=== PATIENT | female | born 1935 | race Caucasian/White ===

== ENCOUNTER 2016-08-23 | Outpatient (CLI) | payer MEDICARE | END 2016-08-23 22:54 | disposition short-term general hospital (02) | CPT/HCPCS: A0170; A0425; A0427 ==

== ENCOUNTER 2016-09-11 | Outpatient (CLI) | payer MEDICARE | END 2016-09-11 15:26 | disposition EMS.NT | DX: R45.82 Worries (principal) ==

== ENCOUNTER 2016-11-26 15:52 | Outpatient (CLI) | payer MEDICARE | END 2016-11-26 15:53 | disposition EMS.NT | DX: F03.90 Unspecified dementia, unspecified severity, without behavioral disturbance, psychotic disturbance, mood disturbance, and anxiety (principal) ==

== ENCOUNTER 2017-01-17 18:47 | Outpatient (CLI) | payer MEDICARE | END 2017-01-17 18:48 | disposition EMS.NT | DX: Z03.89 Encounter for observation for other suspected diseases and conditions ruled out (principal) ==

== ENCOUNTER 2017-01-23 19:28 | Outpatient (CLI) | payer MEDICARE | END 2017-01-23 19:29 | disposition EMS.NT | LOC: EMS 19:28 | PROVIDERS: ATTEND Surgery | DX: R41.0 Disorientation, unspecified (principal) ==

== ENCOUNTER 2017-02-07 14:56 | Outpatient (CLI) | payer MEDICARE | END 2017-02-07 14:57 | disposition home or self-care (01) | LOC: EMS 14:56 | PROVIDERS: ATTEND Surgery | DX: R19.7 Diarrhea, unspecified (principal) | CPT/HCPCS: A0425; A0427 ==

== ENCOUNTER 2017-02-07 15:22 | Inpatient (IN) | payer MEDICARE ==
[2017-02-07] MEDS ORDERED: SODIUM CHLORIDE 0.9% 1,000 ML IV ONE ×2 (16:28)
--- NOTE | 2017-02-07 16:35 | ED Physician Documentation ---
History of Present Illness - Stated complaint Stated Complaint: DIARRHEA - Chief complaint Chief Complaint: Abd Pain - History obtained from History obtained from: Patient, EMS - History of Present Illness Timing: Last night Pain level max: 0 Pain level now: 0 Improved by: nothing Worsened by: nothing - Additonal information Additional information: Patient is an 81-year-old female who states that she had diarrhea last night. Has not had any diarrhea today. Concerned that she may have recurrent C. difficile. 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 No fevers. No abdominal pain. No nausea, no vomiting. Review of Systems Ten Systems: 10 systems reviewed and negative Constitutional: denies: Fever, Chills Ears: denies: Ear pain Nose: denies: Rhinorrhea / runny nose, Congestion Throat: denies: Sore throat Cardiac: denies: Chest pain / pressure Respiratory: denies: Dyspnea, Cough, Wheezing GI: reports: Diarrhea (once). 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 : Renal insuffiency HEENT: Other Psych: Depression Musculoskeletal: Osteoarthritis, Gout, Chronic back pain Derm: None - Past Surgical History Past Surgical History: Yes General: Appendectomy HEENT: Cataracts - Present Medications Home Medications: Ambulatory Orders Medication Instructions Recorded Confirmed Aspirin [Aspir 81] 81 mg PO DAILY 04/21/15 05/10/16 Atorvastatin [Lipitor] 80 mg PO DAILY 04/21/15 05/10/16 oxyCODONE [Roxicodone] 5 mg PO Q6H PRN 04/21/15 05/10/16 Potassium Chloride 10 meq PO DAILY 05/26/15 05/10/16 Gabapentin 300 mg PO TID 05/27/15 05/10/16 Escitalopram [Lexapro] 10 mg PO DAILY 06/30/15 05/10/16 Melatonin 3 mg PO QPM PRN 06/30/15 05/10/16 Ascorbic Acid [Vitamin C] 500 mg PO DAILY 08/09/15 05/10/16 Metoprolol Tartrate 12.5 mg PO BID 08/09/15 05/10/16 Cholecalciferol (Vitamin D3) 2,000 unit PO DAILY 11/18/15 05/10/16 [Vitamin D3] Multivitamin [Multivitamins] 1 tab PO DAILY 11/18/15 05/10/16 oxyCODONE ER [OxyCONTIN] 10 mg PO Q12H 11/18/15 05/10/16 Allopurinol 100 mg PO DAILY 05/10/16 05/10/16 raNITIdine [Zantac] 150 mg PO BID 05/10/16 05/10/16 Furosemide [Lasix] 20 mg PO DAILY #0 05/12/16 05/10/16 Ondansetron Odt [Zofran] 4 mg TL Q6H PRN #10 tablet 06/18/16 - Allergies Allergies/Adverse Reactions: Allergies Allergy/AdvReac Type Severity Reaction Status Date / Time No Known Drug Allergies Allergy Verified 06/18/16 15:45 - Social History Does the pt smoke?: No Smoking Status: Unknown if ever smoked Does the pt drink ETOH?: No Does the pt have substance abuse?: Yes - Immunizations Immunizations are current?: Yes Immunizations: Other immun not current - POLST Patient has POLST: No PD ED PE NORMAL - Vitals Vital signs reviewed: Yes - General General: Alert and oriented X 3, No acute distress - HEENT HEENT: Moist mucous membranes - Neck Neck: Supple, no meningeal sign - Cardiac Cardiac: RRR, Strong equal pulses - Respiratory Respiratory: No respiratory distress, Clear bilaterally - Abdomen Abdomen: Soft, Non tender - Back Back: No CVA TTP, No spinal TTP - Derm Derm: Warm and dry, No rash - Extremities Extremities: No edema, No calf tenderness / cord - Neuro Neuro: Alert and oriented X 3 - Psych Psych: Normal mood, Normal affect Results - Vitals Vitals: Vital Signs - 24 hr 02/07/17 15:30 Temperature 36.8 C Heart Rate 71 Respiratory 20 Rate Blood Pressure 170/64 H O2 Saturation 99 Oxygen O2 Source [With Activity] Room air O2 Source [Without Activity] Room air O2 Source Room air - Labs Labs: Laboratory Tests 02/07/17 02/07/17 02/07/17 16:40 16:40 16:40 WBC 5.3 RBC 3.98 L Hgb 9.7 L Hct 30.9 L MCV 77.6 L MCH 24.5 L MCHC 31.5 L RDW 19.5 H Plt Count 107 L MPV 8.3 Neut # 3.5 Lymph # 1.1 L Power # 0.6 Eos # 0.1 Baso # 0.0 Absolute Nucleated RBC 0.01 Nucleated RBCs 0.1 Sodium 137 Potassium 2.3 L* Chloride 103 Carbon Dioxide 26 Anion Gap 8.0 BUN 29 H Creatinine 1.4 H Estimated GFR (MDRD) 36 L Glucose 194 H Calcium 7.3 L Phosphorus 2.2 L Magnesium 1.5 L Total Bilirubin 0.9 AST 43 H ALT 18 Alkaline Phosphatase 114 Total Protein 6.2 L Albumin 1.6 L Globulin 4.6 H Albumin/Globulin Ratio 0.3 L Lipase 52 H PD MEDICAL DECISION MAKING - ED course Complexity details: reviewed results, re-evaluated patient, considered differential, d/w patient, d/w client experience consultant ED course: Patient is an 81-year-old female who presents to the emergency department with a complaint of diarrhea last night, none today. No evidence of C. difficile. She is found to be severely hypokalemic, unclear etiology. Given oral and IV potassium here, but will place her in observation to ensure that her potassium continues to improve. Also found to be hypomagnesemic, this was replaced by the hospitalist. This document was made in part using voice recognition software. While efforts are made to proofread this document, sound alike and grammatical errors may occur. Departure - Departure Disposition: ED Place in Observation Clinical Impression: Hypokalemia, Hypomagnesemia Condition: Stable Discharge Date/Time: 02/07/17 19:08
[2017-02-07 16:48] LABS: BASOPHILS % (AUTO) 0.5 %; EOSINOPHILS # (AUTO) 0.1 10^3/uL (0.0-0.7); EOSINOPHILS % (AUTO) 1.2 %; HCT - HEMATOCRIT 30.9 % (37.0-47.0); HGB - HEMOGLOBIN 9.7 g/dL (12.0-16.0); LYMPHOCYTES # (AUTO) 1.1 10^3/uL (1.5-3.5); LYMPHOCYTES % (AUTO) 20.7 %; MEAN CORPUSCULAR HEMOGLOBIN 24.5 pg (27.0-31.0); MEAN CORPUSCULAR HGB CONC 31.5 g/dL (32.0-36.0); MEAN CORPUSCULAR VOLUME 77.6 fL (81.0-99.0); MEAN PLATELET VOLUME 8.3 fL (7.9-10.8); MONOCYTES # (AUTO) 0.6 10^3/uL (0.0-1.0); MONOCYTES % (AUTO) 11.6 %; NEUTROPHILS # (AUTO) 3.5 10^3/uL (1.5-6.6); NUCLEATED RED BLOOD CELLS AUTO 0.1 /100WBC; RED BLOOD COUNT 3.98 10^6/uL (4.20-5.40); RED CELL DISTRIBUTION WIDTH 19.5 % (12.0-15.0); UNCORRECTED WHITE BLOOD COUNT 5.3 x10^3/uL; WHITE BLOOD COUNT 5.3 x10^3/uL (4.8-10.8)
[2017-02-07 17:09] LABS: ALBUMIN/GLOBULIN RATIO 0.3 (1.0-2.2); BILIRUBIN,TOTAL 0.9 mg/dL (0.2-1.0); CALCIUM 7.3 mg/dL (8.5-10.3); CREATININE 1.4 mg/dL (0.4-1.0); TOTAL PROTEIN 6.2 g/dL (6.7-8.2)
[2017-02-07 17:13] LABS: POTASSIUM 2.3 mmol/L (3.5-5.0)
[2017-02-07] MEDS ORDERED: POTASSIUM CHLOR 10 MEQ/100 ML 100 ML IV ONE ×2 (17:18→17:46)
[2017-02-07] MEDS ORDERED: POTASSIUM BICARB 25 MEQ TABLET PO STA (17:18)
[2017-02-07 17:42] LABS: MAGNESIUM 1.5 mg/dL (1.7-2.8); PHOSPHORUS 2.2 mg/dL (2.5-4.6)
[2017-02-07] MEDS ORDERED: POTASSIUM BICARB 25 MEQ TABLET PO ONE (17:55)
[2017-02-07] MEDS ORDERED: SODIUM CHLORIDE FLUSH 0.9% 10 ML SYRINGE IVP PRN (18:07)
[2017-02-07] MEDS ORDERED: ONDANSETRON 4 MG/2 ML VIAL IVP PRN (18:07)
[2017-02-07] MEDS ORDERED: ACETAMINOPHEN 325 MG TABLET PO PRN (18:07)
[2017-02-07] MEDS ORDERED: MAGNESIUM SULFATE 2 GRAM 50 ML IV ONE (18:12)
--- NOTE | 2017-02-07 18:35 | HISTORY & PHYSICAL EXAMINATION ---
Chief Complaint - Chief Complaint Chief Complaint: diarrhea with weakness History of Present Illness - Admitted From Admitted From:: ER - History Obtained From Records Reviewed: yes History obtained from: patient and medical records Exam Limitations: altered mental status and poor historian - History of Present Illness HPI Comment/Other: Patient is an 81 year old female who presented to the ER with complaint of diarrhea today and history of liver cirrhosis. She has been seen multiple times in the hospital for similar symptoms. Upon evaluation she has No evidence of C. difficile. She is found to be severely hypokalemic, unclear etiology. She was given oral and IV potassium in ER, and her symptoms are now moderated to severe with low magnesium and potassium. She received IVF for hydration in the ER and will be put inpatient for further evaluation. She has moderate pain and is on chronic pain medication. She states that nothing makes the pain go away or the diarrhea. Review of Systems - Constitutional Constitutional: reports: Fatigue, Malaise, Weakness, Weight loss - Gastrointestinal Gastrointestinal: reports: Abdominal pain, Abdominal distention, Diarrhea, Change in bowel habits, Nausea - Musculoskeletal Musculoskeletal: reports: Muscle weakness - Neurological Neurological: reports: General weakness - Psychiatric Psychiatric: reports: Anxiety History - Past Medical History Cardiovascular: reports: Hypertension, Coronary artery disease, Deep vein thrombosis Respiratory: reports: None Neuro: reports: Dementia Endocrine/Autoimmune: reports: Type 2 diabetes GI: reports: C.difficile, Cirrhosis 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 : reports: Renal insuffiency HEENT: reports: Other Psych: reports: Depression, Anxiety Musculoskeletal: reports: Osteoarthritis, Gout, Fatigue, Chronic back pain Derm: reports: None MRSA Hx?: Yes - Past Surgical History General: reports: Appendectomy HEENT: reports: Cataracts - Family & Social History Family History: Mother: , Father: Living arrangement: At home Living Situation: Alone - Substance History Use: Uses substance without health or social issues: Tobacco, Alcohol, Opioid, Sedative Use Issues: Opioid Induced Psychotic Abuse: Recurrent use of substance despite neg consequences: Alcohol, Opioid Abuse Issues: Anxiety Disorder, Mood Disorder Dependence: Experiences withdrawal or developed tolerances: Alcohol, Opioid Dependence Issues: Anxiety Disorder, Opioid Induced Psychotic Tobacco Details: Cigarettes - POLST Patient has POLST: No POLST Status: Full Code Meds/Allgy - Home Medications Home Medications: Ambulatory Orders Medication Instructions Recorded Confirmed Aspirin [Aspir 81] 81 mg PO DAILY 04/21/15 05/10/16 oxyCODONE [Roxicodone] 5 mg PO Q6H PRN 04/21/15 05/10/16 Potassium Chloride 10 meq PO DAILY 05/26/15 05/10/16 Gabapentin 300 mg PO TID 05/27/15 05/10/16 Escitalopram [Lexapro] 10 mg PO DAILY 06/30/15 05/10/16 Melatonin 3 mg PO QPM PRN 06/30/15 05/10/16 Ascorbic Acid [Vitamin C] 500 mg PO DAILY 08/09/15 05/10/16 Metoprolol Tartrate 12.5 mg PO BID 08/09/15 05/10/16 Cholecalciferol (Vitamin D3) 2,000 unit PO DAILY 11/18/15 05/10/16 [Vitamin D3] Multivitamin [Multivitamins] 1 tab PO DAILY 11/18/15 05/10/16 oxyCODONE ER [OxyCONTIN] 10 mg PO Q12H 11/18/15 05/10/16 Allopurinol 100 mg PO DAILY 05/10/16 05/10/16 raNITIdine [Zantac] 150 mg PO BID 05/10/16 05/10/16 Furosemide [Lasix] 20 mg PO DAILY #0 05/12/16 05/10/16 Ondansetron Odt [Zofran Odt] 4 mg TL Q6H PRN #10 tablet 06/18/16 Neutra-Phos [K-Phos Neutral] 250 mg PO TIDWM #20 tablet 02/08/17 oxyCODONE [Roxicodone] 5 mg PO Q4HR PRN #0 tablet 02/08/17 - Allergies Allergies/Adverse Reactions: Allergies Allergy/AdvReac Type Severity Reaction Status Date / Time No Known Drug Allergies Allergy Verified 06/18/16 15:45 Exam - Vital Signs Reviewed Vital Signs: Yes Vital Signs: Vital Signs x48h Temp Pulse Resp BP Pulse Ox 02/07/17 18:22 79 16 130/67 100 02/07/17 15:30 36.8 C 71 20 170/64 H 99 - Physical Exam General Appearance: positive: No acute distress, Alert, Moderate distress Eyes Bilateral: positive: PERRL ENT: positive: Pharynx nml, Dry mucous membranes Neck: positive: Thyroid nml, No JVD, Trachea midline Respiratory: positive: Chest non-tender, No respiratory distress, Breath sounds nml Cardiovascular: positive: No murmur, No gallop, Tachycardia Abdomen: positive: Tenderness, Other (distention and pain with palpation) Back: positive: Nml inspection Skin: positive: No rash, Warm, Dry Extremities: positive: Full ROM, Nml appearance. negative: Calf tenderness Neurologic/Psychiatric: positive: CN's nml (2-12), Motor nml, Sensation nml, Disoriented to time, Weakness Conclusion/Plan - Problem List (1) Diarrhea with dehydration Conclusion/Plan: acute with possible C Diff. patient will need IVF for hydration. stool culture sent for testing. she has an elevated lipase as well and hx of chirosis of the liver. (2) Low blood magnesium level Conclusion/Plan: acute. will replace magnesium with mag sulfate 2gm IV and repeat levels in the morning. (3) Hypokalemia due to loss of potassium Conclusion/Plan: acute and replace with potassium oral and IV and monitor level with lab draws daily (4) Low serum phosphorus for age Conclusion/Plan: acute. 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 - Lab Results Lab results reviewed: Yes Fish Bones: 02/07/17 16:40 02/08/17 06:04 Other Lab Results: Abnormal Lab Results 02/07/17 02/07/17 02/07/17 16:40 16:40 16:40 RBC 3.98 10^6/uL L 10^6/uL (4.20-5.40) Hgb 9.7 g/dL L g/dL (12.0-16.0) Hct 30.9 % L % (37.0-47.0) MCV 77.6 fL L fL (81.0-99.0) MCH 24.5 pg L pg (27.0-31.0) MCHC 31.5 g/dL L g/dL (32.0-36.0) RDW 19.5 % H % (12.0-15.0) Plt Count 107 10^3/uL L 10^3/uL (130-450) Lymph # 1.1 10^3/uL L 10^3/uL (1.5-3.5) Potassium 2.3 mmol/L L* mmol/L (3.5-5.0) BUN 29 mg/dL H mg/dL (6-20) Creatinine 1.4 mg/dL H mg/dL (0.4-1.0) Estimated GFR (MDRD) 36 L (>89) Glucose 194 mg/dL H mg/dL (70-100) Calcium 7.3 mg/dL L mg/dL (8.5-10.3) Phosphorus 2.2 mg/dL L mg/dL (2.5-4.6) Magnesium 1.5 mg/dL L mg/dL (1.7-2.8) AST 43 IU/L H IU/L (10-42) Total Protein 6.2 g/dL L g/dL (6.7-8.2) Albumin 1.6 g/dL L g/dL (3.2-5.5) Globulin 4.6 g/dL H g/dL (2.1-4.2) Albumin/Globulin Ratio 0.3 L (1.0-2.2) Lipase 52 U/L H U/L (22-51) - Diagnostic Imaging Results Diagnostic Imaging Results: positive: Final report reviewed (patient admitted with 2 midnight for worsening diarrhea and other electrolyte imbalances including magnesium and potassium.) - EKG Results EKG Interpreted Independently: No Issues/Core Measures - Anticipated LOS Anticipated Stay Length: 2 or more midnights - DVT/VTE - Prophylaxis VTE/DVT Device ordered at admit?: Yes
[2017-02-07] MEDS ORDERED: SODIUM CHLORIDE 0.9% 1,000 ML IV SCH (19:00)
[2017-02-07] MEDS ORDERED: ONDANSETRON ODT 4 MG TABLET TL PRN (19:02)
[2017-02-07] MEDS: PANTOPRAZOLE 40 MG VIAL IVP SCH (19:38)
[2017-02-07] MEDS: POTASSIUM CHLORIDE INJ 40 MEQ in SODIUM CHLORIDE 0.9% 1,000 ML IV SCH (19:38)
[2017-02-07] MEDS: oxyCODONE ER 10 MG TABLET PO SCH (19:38)
[2017-02-07] MEDS: NEUTRA-PHOS 250 MG TABLET PO SCH (19:38)
[2017-02-07] MEDS: SODIUM CHLORIDE FLUSH 0.9% 10 ML SYRINGE IVP SCH (19:39)
[2017-02-07 19:41] LABS: IMMATURE RETIC FRACTION 0.56; RED BLOOD COUNT 3.85 10^6/uL (4.20-5.40)
[2017-02-07 20:04] LABS: IRON 15 ug/dL (28-170); TOTAL IRON BINDING CAPACITY 307 ug/dL (250-450); TRANSFERRIN 219 mg/dL (192-382)
[2017-02-07] MEDS ORDERED: IRON SUCROSE 200 MG in SODIUM CHLORIDE 0.9% 100ML 100 ML IV ONE ×2 (20:10→22:30)
[2017-02-07 20:14] LABS: FERRITIN 11.4 ng/mL (11.0-306.8)
[2017-02-07] MEDS ORDERED: ZOLPIDEM 5 MG TABLET PO PRN (20:15)
[2017-02-07] MEDS: GABAPENTIN 300 MG CAPSULE PO SCH (22:04)
[2017-02-07] MEDS: METOPROLOL TARTRATE 25 MG TABLET PO SCH (22:05)
[2017-02-07] MEDS: CHOLECALCIFEROL 5,000 UNIT CAPSULE PO SCH (22:05)
[2017-02-08] MEDS: oxyCODONE 5 MG TABLET PO PRN ×3 (01:45→12:28)
[2017-02-08 06:28] LABS: ALBUMIN/GLOBULIN RATIO 0.4 (1.0-2.2); CALCIUM 7.2 mg/dL (8.5-10.3); CREATININE 1.2 mg/dL (0.4-1.0); MAGNESIUM 1.9 mg/dL (1.7-2.8); PHOSPHORUS 2.7 mg/dL (2.5-4.6); POTASSIUM 3.1 mmol/L (3.5-5.0); TOTAL PROTEIN 5.6 g/dL (6.7-8.2)
[2017-02-08] MEDS: POTASSIUM CHLORIDE INJ 40 MEQ in SODIUM CHLORIDE 0.9% 1,000 ML IV SCH (06:30)
[2017-02-08] MEDS: GABAPENTIN 300 MG CAPSULE PO SCH (06:30)
[2017-02-08] MEDS: PANTOPRAZOLE 40 MG VIAL IVP SCH (06:30)
[2017-02-08] MEDS: SODIUM CHLORIDE FLUSH 0.9% 10 ML SYRINGE IVP SCH ×2 (06:30→13:13)
[2017-02-08] MEDS: NEUTRA-PHOS 250 MG TABLET PO SCH ×2 (08:57→12:29)
[2017-02-08] MEDS: METOPROLOL TARTRATE 25 MG TABLET PO SCH (08:57)
[2017-02-08] MEDS: oxyCODONE ER 10 MG TABLET PO SCH (08:57)
[2017-02-08] MEDS ORDERED: ENOXAPARIN 40 MG/0.4 ML SYRINGE SUBQ SCH (09:00)
[2017-02-08] MEDS ORDERED: ESCITALOPRAM 10 MG TABLET PO SCH (09:00)
[2017-02-08] MEDS ORDERED: MULTIVITAMIN 10 ML, THIAMINE INJ 100 MG, FOLIC ACID INJ 1 MG in SODIUM CHLORIDE 0.9% 1,... IV SCH (09:00)
[2017-02-08] MEDS ORDERED: ZINC SULFATE 220 MG CAPSULE PO SCH (09:00)
[2017-02-08] MEDS ORDERED: CHOLECALCIFEROL 1,000 UNIT TABLET PO SCH (09:00)
[2017-02-08] MEDS ORDERED: POLYETHYLENE GLYCOL 3350 17 GM PACKET PO SCH (09:00)
[2017-02-08] MEDS ORDERED: MAGNESIUM SULFATE 2 GRAM 50 ML IV ONE (09:12)
[2017-02-08] MEDS: CHOLECALCIFEROL 5,000 UNIT CAPSULE PO SCH (09:25)
[2017-02-08] MEDS ORDERED: LORazepam 2 MG/ML SYRINGE IVP PRN (09:25)
[2017-02-08 12:28] VITALS: BP 130/50
--- NOTE | 2017-02-08 13:40 | Discharge Plan ---
Discharge Plan Disposition: Home, Self Care Condition: Stable Prescriptions: Neutra-Phos [K-Phos Neutral] 250 mg PO TIDWM #20 tablet Diet: Regular Activity Restrictions: Activity as Tolerated Shower Restrictions: No Driving Restrictions: No Assistance Devices: Walker Weight Bearing: Full Weight Instruction Topics: ED Potassium Deficiency, Hypokalemia Dc Additional Instructions or Follow Up instructions: Please continue all home medications. you have been given a prescription of Neutraphos for low phosphorus levels. Take all till gone. Continue on regular diet. NO ALCOHOL. avoid soda and drink more water daily Get plenty of rest daily and sleep at least 7-8 hours at night Exercise daily, walking is best with at least 20-30 minutes daily. This will help to improve circulation and mood Return to the ER if symptoms reoccur or you experience any chest pain or shortness of breath, call 911 Please see your primary care provider within 2-3 days after discharge. No Smoking: If you smoke, Please STOP! Call for help. Follow-up with: Garfield Christianson MD [Provider Admit Priv/Credential] -
--- NOTE | 2017-02-08 13:45 | DISCHARGE SUMMARY ---
Discharge Summary Admit Date: 02/07/17 Discharge Date: 02/08/17 Discharging Provider: Cecily Perry APRN Code Status: Attempt Resuscitation Condition at Discharge: Stable Discharge Disposition: 01 Home, Self Care Discharge Facility Name: home - DIAGNOSES Admission Diagnoses: 1. Acute diarrhea possible C Difficile 2. Acute dehydration with hypokalemia and other electrolytes imbalances 3. Low magnesium level, serum 4. Chronic pain syndrome 5. Obesity, with BMI >30 6. Chronic alcohol abuse, in remission with psychotic disorder Discharge Diagnoses with Status of Each Condition: 1. 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 Acute dehydration with hypokalemia and other electrolytes imbalances 3. Low magnesium level, serum 4. Chronic pain syndrome 5. Obesity, with BMI >30 6. Chronic alcohol abuse, in remission with psychotic disorder - HPI History of Present Illness: Patient is an 81-year-old female who states that she had diarrhea last night. Has not had any diarrhea today. Concerned that she may have recurrent C. difficile. 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 No fevers. No abdominal pain. No nausea, no vomiting. - CONSULTS | PROCEDURES Procedures: Notes, Procedures, and Interventions 02/08/17 14:53 Care Manage/Social Work by Karley Gomes Social Work Note D: This 81 y/o female with [facility] was admitted observation status on for acute diarrhea with probable Cdiff and hypokalemia. Pt resides at home alone, has life line and local supportive daughter. Pt states she was "kicked out of hospice" a few weeks ago because "I wouldn't ". Pt has [facility] application in progress; per dtr request, SW inquired on status - left [facility] worker Ekaterina ([phone]). Pt am rounds, pt able to d/c today. SW spoke with daughter, states able to corn picker pt at 6pm today. Per pt request, SW provided pt with information and resources. A/P: Pt has d/c home with daughter. No barriers to d/c or additional SW needs noted. DON Luciano Initialized on 02/08/17 14:53 - END OF NOTE 02/08/17 14:13 Nursing Note by Cece Frank Patient will f/u with PCP regarding any immunizations needed. Initialized on 02/08/17 14:13 - END OF NOTE 02/07/17 22:31 Nursing Note by SavanahDoris Daughter called and was stating that the pt was on hospice untill a couple days ago. She was unclear about who, she thought it was [facility]. She also said that her mother had been on PO antibiotics for cellulites in her legs, cephalexin. I recommended that the daughter, Rony, called the provider in the am and explain the whole picture. Daughters # is [phone] Initialized on 02/07/17 22:31 - END OF NOTE Procedures INSERTION OF INFUSION DEV INTO SUP VENA CAVA, PERC APPROACH (08/11/15) Interventions Activity and ADLs Start: 02/07/17 18: 07 Freq: Status: Discharge Created 02/07/17 18:12 ABG (Rec: 02/07/17 18:12 BKG [id number]) Edit Status 02/08/17 14:40 SD (Rec: 02/08/17 14:40 SD [id number]) Active=>Discharge Admission Assessment 1 - Data Start: 02/07/17 19: 07 Freq: ONCE Status: Complete Document 02/07/17 19:07 AT (Rec: 02/07/17 19:57 AT [id number]) General Questions Risk for ineffective health maintenance Date of Arrival 02/07/17 Time of Arrival 19:15 Arrival From Emergency department Admitted for Observation? Yes Chief Complaint General History Provided By Patient Clinical Trial Participation No Last Food Intake 02/07 noon Last Fluid Intake 02/07 1930 Last Void 02/07/17 1900 Last BM (If unknown, assume 3 days ago) 02/06/17 Last BM Reported By Patient Contacts rony salmeron Relationship Child Cellular Advance Directives Advance Directives Readiness for enhanced spiritual well-being, risk for decisional conflict Advance Directives on file? No Code Status Code Status Attempt Resuscitation Communication Assessment Risk for impaired verbal communication Language WDL:The patient will have a primary language. Preferred language reflects the language the patient prefers to use in conversation. Even though the preferred language may not be Turkmen, only check rest room attendant required if the patient cannot meaningfully communicate. Primary Turkmen Preferred Turkmen Orientation Patient Identification Bands on Patient Identification - white Fall risk - yellow Hospital Orientation Risk of knowledge deficit, ineffective coping Orientation To Comfort and safety rounds ID bracelet check/Scan Call light/TV Bed alarm Siderails/safety Environment Unit routine Bed controls Hand hygiene Rights & responsibilities Emergency light Telephone Isolation/precautions Visiting policy Pet policy Tobacco policy Belongings Belongings Disposition With Patient Inventory of Items Clothes Jewelry Detailed Description of Belongings purple night gown; one gold colored weding ring Height/Weight Risk for imbalanced nutrition, fluid volume Height 5 ft 5 in Weight (kg) 87 kg Measurement Method Bedscale Body Mass Index (Normal 18.5-24.0) 31.8 Edit Status 02/07/17 19:07 AT (Rec: 02/07/17 19:57 AT [place] [id number]) Active=>Complete Created 02/07/17 19:07 System (Rec: 02/07/17 19:07 System [place] [id number]) Admission Assessment 2 - Screens Start: 02/07/17 19: 07 Freq: ONCE Status: Complete Document 02/07/17 19:07 AT (Rec: 02/07/17 19:57 AT [place] [id number]) Status Current Status Is Patient ? No Substance Use Smoking Status Smoking Status Former smoker Alcohol - Drug Use and Type Daily Substance Prescription Pills Occasional Alcohol Liquor Prior Functional Activity Risk for falls, impaired walking and activity intolerance Activity Walks occasionally Level Supervised Home Mobility Equipment Walker JH Fall Scale Age Age is automatically calculated in the scale. 60-69 years = 1 point 70-79 years = 2 points >80 years = 3 points Fall History Fall History - Pick One One fall within 6months before admission Elimination Elimination - Pick One Incontinence Medications Includes DRAFTER [employer]/opiates, anti-convulsants, anti-hypertensives, diuretics, hypnotics, laxatives, sedatives. and psychotropics. Medications - Pick One On 2 or more high fall risk drugs Patient Care Equipment Any equipment that tethers patient, (e.g. IV infusion, chest tube, indwelling catheters, SCDs, etc). Patient Care Equipment - Pick One Two present Mobility Mobility - Pick All That Apply Requires assistance/ supervision for mobility, transfer or ambulation Unsteady gait Cognition Cognition - Pick All That Apply Lack of understanding of one's physical and cognitive limitations Score Score 25 Fall Risk Category High Risk >13 points Standard/Low Risk Interventions Standard/Low Risk Intervetions Call light within reach Instruct patient to call Trip hazards removed Adequate lighting Fall prevention education for patient and family Bed/chair locked Bed in lowest position Shoes/non-skid socks on Hourly rounding (if applicable ) 2 side rails up Moderate/High Risk Interventions Moderate/High Risk Interventions Yellow bracelet Remain with patient during toileting Commode/urinal at bedside Bed alarm Immunizations Risk for infection, ineffective health maintenance Immunizations Unknown Current Influenza Immunization No Pneumococcal Immunization No Nutritional Assessment Risk for nutritional imbalance WDL:REGULAR DIET consumed without assistive device or precautions; MEETS nutritional requirements; non-diabetic. WDL No Assessment Diet Change No Weight Change (>/= 10lbs in month) No Appetite Change No: has no teeth Ab Scale Risk for impaired skin intergrity Skin Risk Patients with a total score of 16 or less are considered to be at risk of developing pressure ulcers: - 15 or 16 = Low Risk - 13 or 14 = Moderate Risk - 12 or less = High Risk Moisture Occasionally moist Sensory Perception Slightly limited Activity Walks occasionally Mobility Slightly limited Nutrition Probably inadequate Friction & Shear Potential problem Total Total Score 16 Risk Result Low Risk Wound Consult Is There Skin Breakdown or Wound No DVT Risk Screen Risk for impaired tissue perfusion DVT Prophylaxis ordered on Admission Yes Orders Sleep Patterns Assessment Hours of Uninterrupted Sleep 8 Sleep Aids Medication Infection Precautions Isolation and Precautions Type Standard Precautions for all patients, add other precautions as indicated Isolation Type Contact Standard precautions Start Date 02/07/17 Reason Diarrhea History of MRSA or current infection Abuse Risk for trauma, risk for dysfunctional family processes Do You Feel Safe in Your Home Yes Environment Have You Suffered Physical, Verbal, or No Emotional Abuse in Spirituality Affiliation Orthodox Discharge Assessment Risk for Ineffective Health Maintenance Expected Length of Stay (Days) 1 Able to Resume Role Yes Able to Resume ADLs After Yes Hospitalization Patient's Needs daughter is primary child care teacher Suicide Safety Check Edit Status 02/07/17 19:07 AT (Rec: 02/07/17 19:57 AT [id number]) Active=>Complete Created 02/07/17 19:07 System (Rec: 02/07/17 19:07 System [id number]) Document 02/08/17 09:53 CVK (Rec: 02/08/17 09:55 CVK [id number]) Substance Use Smoking Status Smoking Status Unknown if ever smoked Infection Precautions MRSA History Patient 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 Reason for Precautions Labs confirmed MRSA Positive? Yes Query Text:One negative result is needed to change the MRSA Infection Precautions status. Patient should remain on Contact Precautions until cleared. Isolation and Precautions Type Standard Precautions for all patients, add other precautions as indicated Isolation Type Contact enteric Standard precautions Start Date 02/08/17 Reason Ruleout Clostridium difficile Admission Assessment 3 - History Start: 02/07/17 19: 07 Freq: ONCE Status: Complete Document 02/07/17 19:07 AT (Rec: 02/07/17 19:57 AT [place] [id number]) Admission Medical History Assessment Risk for Ineffective Health Maintenance WDL: No pre-existing conditions Neurological Dementia Cardiovascular Hypertension Coronary artery disease Deep vein thrombosis Eyes, Ears, Nose, Throat Other Respiratory None Home 02 Used No If not protocol: Oxygen Flow, liters/ 95 minute Skin None Blood Disorders None Endocrine/Autoimmune Type 2 diabetes Gastrointestinal Cirrhosis Reproductive None Urinary Renal insuffiency Musculoskeletal Osteoarthritis Gout Chronic back pain Behavioral/Mental Health Depression Have you had pain for over 3 months? Yes Surgical History Past Surgeries Yes Abdominal Appendectomy Eyes Ears Nose Throat (EENT) Cataracts Other Surgeries none reported. Edit Status 02/07/17 19:07 AT (Rec: 02/07/17 19:57 AT [place] [id number]) Active=>Complete Created 02/07/17 19:07 System (Rec: 02/07/17 19:07 System [place] [id number]) Admit \\ Transfer \\ Status Start: 02/07/17 18: 05 Freq: ONCE Status: Inactive Created 02/07/17 18:05 ABG (Rec: 02/07/17 18:05 [facility][id number]) Edit Status 02/07/17 18:43 ABG (Rec: 02/07/17 18:43 ABG [id number]) Active=>Inactive Admit \\ Transfer \\ Status Start: 02/07/17 18: 42 Freq: ONCE Status: Complete Created 02/07/17 18:43 ABG (Rec: 02/07/17 18:43 BKG [facility][id number]) Document 02/07/17 18:46 AT (Rec: 02/07/17 18:46 AT [place] [id number]) Edit Status 02/07/17 18:46 AT (Rec: 02/07/17 18:46 AT [place] [id number]) Active=>Complete Age Appropriate Care Start: 02/07/17 19: 07 Freq: QSHIFT Status: Discharge Created 02/07/17 19:07 System (Rec: 02/07/17 19:07 System [id number]) Document 02/08/17 02:55 AFS (Rec: 02/08/17 04:53 AFS [id number]) Age Appropriate Care Geriatric Adult - 80 Years and Older Change in Assessment? No change Preferred Name Pat Specific Personal Items within Reach Call light, bedside table, tissues Blankets on Temperature Level Moderate Lighting Level Dim Privacy Curtain Close as needed Door Position No preference Fan No Document 02/08/17 10:00 SUTTOB (Rec: 02/08/17 10:17 SUTTOB [id number]) Age Appropriate Care Geriatric Adult - 80 Years and Older Change in Assessment? No change Preferred Name Pat Specific Personal Items within Reach Call light, bedside table, tissues Blankets on Temperature Level Moderate Lighting Level Dim Privacy Curtain Close as needed Door Position No preference Fan No Edit Status 02/08/17 14:40 SD (Rec: 02/08/17 14:40 SD [id number]) Active=>Discharge Away from Room Start: 02/07/17 19: 07 Freq: PRN Status: Inactive Created 02/07/17 19:07 System (Rec: 02/07/17 19:07 System [id number]) Edit Status 02/07/17 19:08 AT (Rec: 02/07/17 19:08 AT [id number]) Active=>Inactive Bowel Movement Start: 02/07/17 19: 07 Freq: .PRN Status: Discharge Created 02/07/17 19:07 System (Rec: 02/07/17 19:07 System [id number]) Edit Status 02/08/17 14:40 SD (Rec: 02/08/17 14:40 SD [id number]) Active=>Discharge Ab Scale Assessment Start: 02/07/17 19: 07 Freq: 0000,0800,1600 Status: Discharge Created 02/07/17 19:07 System (Rec: 02/07/17 19:07 System [id number]) Document 02/08/17 00:55 AFS (Rec: 02/08/17 04:52 AFS [id number]) Ab Scale Risk for impaired skin intergrity Skin Risk Patients with a total score of 16 or less are considered to be at risk of developing pressure ulcers: - 15 or 16 = Low Risk - 13 or 14 = Moderate Risk - 12 or less = High Risk Moisture Occasionally moist Sensory Perception Slightly limited Activity Walks occasionally Mobility Slightly limited Nutrition Probably inadequate Friction & Shear Potential problem Total Total Score 16 Risk Result Low Risk Wound Consult Is There Skin Breakdown or Wound No Document 02/08/17 08:00 SUTTOB (Rec: 02/08/17 08:20 SUTTOB [id number]) Ab Scale Risk for impaired skin intergrity Skin Risk Patients with a total score of 16 or less are considered to be at risk of developing pressure ulcers: - 15 or 16 = Low Risk - 13 or 14 = Moderate Risk - 12 or less = High Risk Moisture Occasionally moist Sensory Perception Slightly limited Activity Walks occasionally Mobility Slightly limited Nutrition Probably inadequate Friction & Shear Potential problem Total Total Score 16 Risk Result Low Risk Wound Consult Is There Skin Breakdown or Wound No Edit Status 02/08/17 14:40 SD (Rec: 02/08/17 14:40 SD [id number]) Active=>Discharge CIWA - AR Score Card Start: 02/08/17 09: 41 Freq: PRN Status: Discharge Document 02/08/17 09:12 SUTTOB (Rec: 02/08/17 09:42 SUTTOB [id number]) CIWA-Ar Score Card Risk for disturbed sensory perception [place] Sedation Scale Score 1 Anxious and agitated or Query Text:If the patient does not restless, or both. respond a stronger stimulus is applied. A louder auditory stimulus or a glabellar (between the eyebrows) tap is enacted. CIWA-Ar Categories Discontinue if 0 twice in 24 hours Agitation 4 Query Text:0 = Normal activity 4 = Moderate fidgety 7 = Paces back and forth, thrashes about Anxiety 4 Query Text:0 = No anxiety, at ease 4 = Moderate anxious or guarded 7 = Acute panic state Auditory Disturbances 0 Query Text:0 = Not present 2 = Mild harshness or ability to frighten 4 = Moderate severe hallucination 7 = Continuous hallucinations Orientation 2 Query Text:0 = Oriented and can do serial additions 2 = Disoriented for date by no more than two calendar days 4 = Disoriented for place and/or person Headache 0 Query Text:0 = Not present 3 = Moderate 5 = Severe 7 = Extremely severe Nausea or Vomiting 0 Query Text:0 = No nausea or vomiting 4 = Intermittent nausea and dry heaves 7 = Constant nausea, frequent dry heaves and vomiting Paroxysmal Sweats 0 Query Text:0 = No sweat visable 4 = Beads of sweat obvious 7 = Drenching sweats Tactile Disturbances 0 Query Text:0 = None 4 = Moderately severe hallucinations 7 = Continuous hallucinations Tremor 0 Query Text:0 = No tremor 4 = Moderate with patient's arm extended 7 = Severe even without extended arms Visual Disturbances 0 Query Text:0 = None 4 = Moderately severe hallucinations 7 = Continuous hallucinations Total 10 Document 02/08/17 09:41 SUTTOB (Rec: 02/08/17 09:43 SUTTOB [id number]) CIWA-Ar Score Card Risk for disturbed sensory perception [place] Sedation Scale Score 1 Anxious and agitated or Query Text:If the patient does not restless, or both. respond a stronger stimulus is applied. A louder auditory stimulus or a glabellar (between the eyebrows) tap is enacted. CIWA-Ar Categories Discontinue if 0 twice in 24 hours Agitation 4 Query Text:0 = Normal activity 4 = Moderate fidgety 7 = Paces back and forth, thrashes about Anxiety 4 Query Text:0 = No anxiety, at ease 4 = Moderate anxious or guarded 7 = Acute panic state Auditory Disturbances 0 Query Text:0 = Not present 2 = Mild harshness or ability to frighten 4 = Moderate severe hallucination 7 = Continuous hallucinations Orientation 2 Query Text:0 = Oriented and can do serial additions 2 = Disoriented for date by no more than two calendar days 4 = Disoriented for place and/or person Headache 0 Query Text:0 = Not present 3 = Moderate 5 = Severe 7 = Extremely severe Nausea or Vomiting 0 Query Text:0 = No nausea or vomiting 4 = Intermittent nausea and dry heaves 7 = Constant nausea, frequent dry heaves and vomiting Paroxysmal Sweats 0 Query Text:0 = No sweat visable 4 = Beads of sweat obvious 7 = Drenching sweats Tactile Disturbances 0 Query Text:0 = None 4 = Moderately severe hallucinations 7 = Continuous hallucinations Tremor 0 Query Text:0 = No tremor 4 = Moderate with patient's arm extended 7 = Severe even without extended arms Visual Disturbances 0 Query Text:0 = None 4 = Moderately severe hallucinations 7 = Continuous hallucinations Total 10 Created 02/08/17 09:41 SUTTOB (Rec: 02/08/17 09:41 SUTTOB [id number]) Edit Status 02/08/17 14:40 SD (Rec: 02/08/17 14:40 SD [id number]) Active=>Discharge CIWA-Ar Score Assessment (IV) Start: 02/08/17 09: 12 Freq: ONCE Status: Discharge Document 02/08/17 09:12 SUTTOB (Rec: 02/08/17 09:42 SUTTOB [id number]) CIWA-Ar Score Regimen Current Score 8-11 Created 02/08/17 09:13 ABG (Rec: 02/08/17 09:13 BKG [facility]-[id number]) Edit Status 02/08/17 14:40 SD (Rec: 02/08/17 14:40 SD [id number]) Active=>Discharge Care Plan Shift Summary - Nursing Start: 02/07/17 19: 07 Freq: ENDSHIFT Status: Complete Created 02/07/17 19:07 System (Rec: 02/07/17 19:07 System [id number]) Document 02/07/17 22:00 AT (Rec: 02/07/17 22:56 AT [id number]) Care Plan Shift Summary Situation Brief description of current problem or issue Hospital Day 1 Situation hypokalemia/dehydration from diarrhea Short Term Goals Improved fluid balance Progress Toward Goals Not met Description of Unmet or Partially Unmet Pt is dehydrated, requiring IV Goals fluids Recommendations Monitor and assess vitals, labs and I&O Improve Electrolytes Progress Toward Goals Not met Description of Unmet or Partially Unmet K2.3; phos2.2 and mag 1.5; Goals requiring IV and PO replacement Recommendations Monitor and assess vitals, labs and I&O Funeral Director Goals Discharge to home or care Progress Toward Goal Not met Description of Unmet or Partially Unmet PT requiring IV and PO Goals replacement, IV fluid replacemnt. Awaiting Urine and stool samples Jail Goals Recommendations Monitor and assess vitals, labs and I&O Plan Recommendations Monitor and assess vitals, labs and I&O. IV fluids and IV electo replacement. Maintain safety measures Document 02/08/17 06:00 AFS (Rec: 02/08/17 06:11 AFS [id number]) Care Plan Shift Summary Situation Brief description of current problem or issue Hospital Day 1 Situation hypokalemia/dehydration from diarrhea Short Term Goals Improved fluid balance Progress Toward Goals Not met Description of Unmet or Partially Unmet Pt is dehydrated, requiring IV Goals fluids. Currently on IV NS with potassium. Recommendations Monitor and assess vitals, labs and I&O Improved mobility and activity tolerance Progress Toward Goals Not met Description of Unmet or Partially Unmet Pt slept most of the shift. Goals Recommendations Assist with ADLs and ambulation prn. Improve Electrolytes Progress Toward Goals Not met Description of Unmet or Partially Unmet K2.3; phos2.2 and mag 1.5; Goals requiring IV and PO replacement Recommendations Monitor and assess vitals, labs and I&O Funeral Director Goals Discharge to home or care Progress Toward Goal Not met Description of Unmet or Partially Unmet PT requiring IV and PO Goals replacement, IV fluid replacemnt. Awaiting Urine and stool samples Jail Goals Recommendations Monitor and assess vitals, labs and I&O Plan Recommendations Monitor and assess vitals, labs and I&O. IV fluids and IV electo replacement. Maintain safety measures Edit Status 02/08/17 13:57 SD (Rec: 02/08/17 13:57 SD [id number]) Active=>Complete Clinical Education Start: 02/07/17 19: 07 Freq: PRN Status: Discharge Document 02/07/17 19:07 AT (Rec: 02/07/17 19:58 AT [id number]) Clinical Education Risk for knowledge deficit Topics Clinical Education Activity Fall risk Fluid management I & O collection Skin care Infection precautions Methods Type Discussion Response Recipient Patient Evaluation Verbalizes understanding Reinforcement needed Created 02/07/17 19:07 System (Rec: 02/07/17 19:07 System [id number]) Edit Status 02/08/17 14:40 SD (Rec: 02/08/17 14:40 SD [id number]) Active=>Discharge Collect Specimen: C. DIFF BY PCR Start: 02/07/17 15: 38 Stool Status: Discharge Freq: ONCE Created 02/07/17 15:39 BLH (Rec: 02/07/17 15:39 BLH [id number]) Edit Status 02/08/17 14:40 SD (Rec: 02/08/17 14:40 SD [id number]) Active=>Discharge Collect Specimen: CULTURE, STOOL Start: 02/07/17 20: 02 Stool Status: Discharge Freq: ONCE Created 02/07/17 20:02 ABG (Rec: 02/07/17 20:02 ABG [id number]) Edit Status 02/08/17 14:40 SD (Rec: 02/08/17 14:40 SD [id number]) Active=>Discharge Collect Specimen: UA w/ MICROSCOPIC, CULT IF Start: 02/07/17 19: 10 Freq: ONCE Status: Discharge Created 02/07/17 19:10 ABG (Rec: 02/07/17 19:10 ABG [id number]) Edit Status 02/08/17 14:40 SD (Rec: 02/08/17 14:40 SD [id number]) Active=>Discharge Comfort and Safety Rounds Start: 02/07/17 19: 07 Freq: 0000,0400,0800,1200,1600,2000 Status: Discharge Created 02/07/17 19:07 System (Rec: 02/07/17 19:07 System [id number]) Document 02/07/17 20:00 AT (Rec: 02/07/17 20:27 AT [id number]) Comfort and Safety Rounds _ Risk for injury, pain, impaired skin integrity, self care deficit Hourly Rounds 4 P's Addressed:Pain, Personal Items, Yes Position, Potty Bed Alarm Bed Alarm Place and Turned On Yes Document 02/08/17 00:55 AFS (Rec: 02/08/17 04:52 AFS [id number]) Comfort and Safety Rounds _ Risk for injury, pain, impaired skin integrity, self care deficit Hourly Rounds 4 P's Addressed:Pain, Personal Items, Yes Position, Potty Bed Alarm Bed Alarm Place and Turned On Yes Document 02/08/17 04:00 AFS (Rec: 02/08/17 04:54 AFS [id number]) Comfort and Safety Rounds _ Risk for injury, pain, impaired skin integrity, self care deficit Hourly Rounds 4 P's Addressed:Pain, Personal Items, Yes Position, Potty Bed Alarm Bed Alarm Place and Turned On Yes Document 02/08/17 08:00 SUTTOB (Rec: 02/08/17 08:20 SUTTOB [id number]) Comfort and Safety Rounds _ Risk for injury, pain, impaired skin integrity, self care deficit Hourly Rounds 4 P's Addressed:Pain, Personal Items, Yes Position, Potty Bed Alarm Bed Alarm Place and Turned On Yes Document 02/08/17 12:00 SD (Rec: 02/08/17 13:12 SD [id number]) Comfort and Safety Rounds _ Risk for injury, pain, impaired skin integrity, self care deficit Hourly Rounds 4 P's Addressed:Pain, Personal Items, Yes Position, Potty Bed Alarm Bed Alarm Place and Turned On Yes Edit Status 02/08/17 14:40 SD (Rec: 02/08/17 14:40 SD [id number]) Active=>Discharge Diet Intake Start: 02/07/17 19: 07 Freq: 0900,1300,1800 Status: Discharge Created 02/07/17 19:07 System (Rec: 02/07/17 19:07 System [id number]) Document 02/08/17 09:00 SUTTOB (Rec: 02/08/17 09:19 SUTTOB [id number]) Diet Intake Risk for nutrition imbalance Meal No meal (NPO) Document 02/08/17 13:00 SD (Rec: 02/08/17 13:12 SD [id number]) Diet Intake Risk for nutrition imbalance Meal No meal (NPO) Edit Status 02/08/17 14:40 SD (Rec: 02/08/17 14:40 SD [id number]) Active=>Discharge Discharge Start: 02/08/17 13: 42 Text: Check discharge orders for Krames topics Status: Discharge Freq: .ONCE Created 02/08/17 13:42 ABG (Rec: 02/08/17 13:42 BKG [id number]) Document 02/08/17 13:57 SD (Rec: 02/08/17 13:58 SD [id number]) Discharge Care Plan Care Plan Education Goals Met Yes Education Was any stroke education given? No Was any VTE education given? No General Discharge Education Record reviewed to determine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 drainage, vision intact with/without corrective lens. Ear WDL Yes Query Text:EARS normal hearing, no drainage. Nose WDL Yes Query Text:NOSE no congestion, no bleeding, no discharge, no deviation, no ulcer, no tubes. Mouth and Throat WDL No Query Text:MOUTH and THROAT: no redness, no swelling, no missing teeth, no exudate, no ulcer/pain, no tubes. Assessment Appearance Missing teeth CardioVascular _ Risk for ineffective tissue perfusion Cardiac WDL Yes Query Text:Regular rate, rhythm; no chest pain/angina; palpable peripheral pulses; capillary refill< 3 seconds; no calf/thigh tenderness; no JVD; no telemetry (ICU patients - no extra cardiac sounds, normal sinus rhythm). Edema _ Risk for Impaired Tissue Perfusion, Fluid Volume Imbalance Edema Present Yes Location Bilateral Lower extremity Edema Description Moderate Edema Type Non-pitting Skin Skin Risk for impaired skin integrity WDL No Query Text:SKIN warm, dry, intact, no rash/redness, appropriate color; INCISION dry, clean, intact without rash /redness, appropriate color, without drainage, odor; WOUND bed clean, without drainage/odor. Location Bilateral Leg Color [place] Hyperpigmentation Rash/Redness Temperature Warm Texture Rough Thick Turgor Edematous Moisture Moist Right Hip Color Ecchymosis Temperature Warm Texture Smooth Moisture Dry Bowel Movement . Risk for constipation, pain altered fluid balance Last Bowel Movement Last BM (If unknown, assume 3 days ago) 02/06/17 GastroIntestinal _ Risk for Imbalanced Nutrition, Pain, Diarrhea, Constipation, Infection GI WDL No Query Text:ABDOMEN soft, nondistended, normal bowel tones; CONTINENT; BOWEL movements regular, normal consistency; no nausea, vomiting; MUCOUS membranes intact. NG/GI tube patent. Assessment Comment Chronic diarrhea, NPO for bowel rest Urinary _ Risk for impaired urinary elimination WDL Yes Query Text:URINE clear, adequate output, normal pattern, continent without devices; no frequency/dysuria. Musculo-Skeletal _ MusculoSkeletal WDL No Query Text:Moves EXTREMITES with equal strength and symmetry. No muscular skeletal deviation, no deformity of limbs or spine. Active ROM. Extremities Lower Extremity Bilateral Extremities Limited ROM Peripheral neuropathy Weakness Reproductive _ Risk for pain, infection Reproductive WDL Yes Query Text:WDL:BREASTS intact, symmetrical, no discharge; GENITALS without lesions, abnormal odor, discharge, devices. Psych/Social _ Risk of disturbed personal identity, ineffective coping, violence Psych-Social WDL Yes Query Text:Patient/family affect, behavior and verbalizations are appropriate to the situation. Document 02/08/17 08:00 RADHA (Rec: 02/08/17 08:20 SUTSTEVENSONB [id number]) Neuro _ Risk of ineffective cerebral tissue perfusion, disturbed sensory perception WDL Yes Query Text:ALERT, oriented x4, follows commands; tracks objects, moves EXTREMITIES with equal symmetry, strength; no SENSORY deficits; SPEECH age appropriate, clear; MOTOR activity, reflexes, tone age appropriate; PERRLA. Respiratory _ Risk for ineffective airway clearance, ineffective breathing pattern, impaired gas exchange WDL Yes Query Text:LUNGS clear bilaterally; RESPIRATIONS nonlabored, quiet with regular rhythm; AIRWAY natural; room air . Ventilations adequate depth and rate. No Incentive Spirometry use. EENT EENT Risk for infection, sensory perception disturbance EENT WDL No Query Text: EYES close normally, no swelling, no discoloration, no drainage, vision intact with/without corrective lens. EARS normal hearing, no drainage. NOSE no congestion, no bleeding, no discharge, no deviation, no ulcer, no tubes. MOUTH and THROAT: no redness, no swelling, no missing teeth, no exudate, no ulcers/pain, no tubes. Eye WDL Yes Query Text:EYES close normally, no swelling, no discoloration, no drainage, vision intact with/without corrective lens. Ear WDL Yes Query Text:EARS normal hearing, no drainage. Nose WDL Yes Query Text:NOSE no congestion, no bleeding, no discharge, no deviation, no ulcer, no tubes. Mouth and Throat WDL No Query Text:MOUTH and THROAT: no redness, no swelling, no missing teeth, no exudate, no ulcer/pain, no tubes. Assessment Appearance Missing teeth CardioVascular _ Risk for ineffective tissue perfusion Cardiac WDL Yes Query Text:Regular rate, rhythm; no chest pain/angina; palpable peripheral pulses; capillary refill< 3 seconds; no calf/thigh tenderness; no JVD; no telemetry (ICU patients - no extra cardiac sounds, normal sinus rhythm). Edema _ Risk for Impaired Tissue Perfusion, Fluid Volume Imbalance Edema Present Yes Location Bilateral Lower extremity Edema Description Moderate Edema Type Non-pitting Skin Skin Risk for impaired skin integrity WDL No Query Text:SKIN warm, dry, intact, no rash/redness, appropriate color; INCISION dry, clean, intact without rash /redness, appropriate color, without drainage, odor; WOUND bed clean, without drainage/odor. Bowel Movement . Risk for constipation, pain altered fluid balance Last Bowel Movement Last BM (If unknown, assume 3 days ago) 02/06/17 GastroIntestinal _ Risk for Imbalanced Nutrition, Pain, Diarrhea, Constipation, Infection GI WDL No Query Text:ABDOMEN soft, nondistended, normal bowel tones; CONTINENT; BOWEL movements regular, normal consistency; no nausea, vomiting; MUCOUS membranes intact. NG/GI tube patent. Assessment Abdominal Appearance Comment pt has not had diarrhea since admit Urinary _ Risk for impaired urinary elimination WDL Yes Query Text:URINE clear, adequate output, normal pattern, continent without devices; no frequency/dysuria. Musculo-Skeletal _ MusculoSkeletal WDL No Query Text:Moves EXTREMITES with equal strength and symmetry. No muscular skeletal deviation, no deformity of limbs or spine. Active ROM. Extremities Lower Extremity Bilateral Extremities Limited ROM Peripheral neuropathy Weakness Reproductive _ Risk for pain, infection Reproductive WDL Yes Query Text:WDL:BREASTS intact, symmetrical, no discharge; GENITALS without lesions, abnormal odor, discharge, devices. Psych/Social _ Risk of disturbed personal identity, ineffective coping, violence Psych-Social WDL Yes Query Text:Patient/family affect, behavior and verbalizations are appropriate to the situation. Edit Status 02/08/17 14:40 SD (Rec: 02/08/17 14:40 SD [id number]) Active=>Discharge Observation Care Items Start: 02/07/17 19: 07 Freq: Q2H Status: Complete Created 02/07/17 19:07 System (Rec: 02/07/17 19:07 System [id number]) Document 02/07/17 19:57 AT (Rec: 02/07/17 20:27 AT [id number]) Observation Care Items Reason for Observation Observation Care Items Education IV fluid replacement IV medication infusion Monitoring repetitive vital signs Pending lab or other test Pain management Frequency 02/07/17 19:57 AT (Rec: 02/07/17 19:57 AT [id number]) Date/Time Frequency 02/07/17 19:57 Q2H Document 02/07/17 21:57 AT (Rec: 02/07/17 21:57 AT [id number]) Observation Care Items Reason for Observation Observation Care Items Education IV fluid replacement IV medication infusion Monitoring repetitive vital signs Pending lab or other test Document 02/07/17 23:00 AFS (Rec: 02/08/17 04:44 AFS [id number]) Observation Care Items Reason for Observation Observation Care Items Education IV fluid replacement IV medication infusion Monitoring repetitive vital signs Pending lab or other test Document 02/08/17 01:00 AFS (Rec: 02/08/17 04:52 AFS [id number]) Observation Care Items Reason for Observation Observation Care Items Education IV fluid replacement IV medication infusion Monitoring repetitive vital signs Pending lab or other test Document 02/08/17 03:00 AFS (Rec: 02/08/17 04:54 AFS [id number]) Observation Care Items Reason for Observation Observation Care Items Education IV fluid replacement IV medication infusion Monitoring repetitive vital signs Pending lab or other test Document 02/08/17 04:54 AFS (Rec: 02/08/17 04:55 AFS [id number]) Observation Care Items Reason for Observation Observation Care Items Education IV fluid replacement IV medication infusion Monitoring repetitive vital signs Pending lab or other test Document 02/08/17 07:00 AFS (Rec: 02/08/17 07:35 AFS [id number]) Observation Care Items Reason for Observation Observation Care Items Education IV fluid replacement IV medication infusion Monitoring repetitive vital signs Pending lab or other test Document 02/08/17 09:00 SUTTOB (Rec: 02/08/17 09:19 SUTTOB [id number]) Observation Care Items Reason for Observation Observation Care Items Education IV fluid replacement IV medication infusion Monitoring repetitive vital signs Pending lab or other test Document 02/08/17 11:00 SD (Rec: 02/08/17 11:57 SD [id number]) Observation Care Items Reason for Observation Observation Care Items Electrolyte infusion IV fluid replacement Other care required that exceeds usual outpatient care Document 02/08/17 13:00 SD (Rec: 02/08/17 13:12 SD [id number]) Observation Care Items Reason for Observation Observation Care Items Electrolyte infusion IV fluid replacement Other care required that exceeds usual outpatient care Edit Status 02/08/17 13:57 SD (Rec: 02/08/17 13:57 SD [id number]) Active=>Complete Pain Assessment and Management Start: 02/07/17 19: 07 Freq: 0000,0400,0800,1200,1600,2000 Status: Discharge Created 02/07/17 19:07 System (Rec: 02/07/17 19:07 System [id number]) Document 02/07/17 20:00 AT (Rec: 02/07/17 20:27 AT [id number]) Pain Assessment Risk of pain, acute, chronic Location Generalized Numerical Intensity Rating 4 Pain Description Throbbing Bilateral lower legs Numerical Intensity Rating 4 Pain Type Chronic Pain Description Throbbing Management Pain Tolerable Level 3 Effectiveness Pain Measures Meet Patient's Identified Yes Goals Document 02/08/17 00:55 AFS (Rec: 02/08/17 04:45 AFS [id number]) Pain Assessment Risk of pain, acute, chronic Effectiveness Pain Measures Meet Patient's Identified Yes Goals Other Comment Pt denied pain at this time Document 02/08/17 04:00 AFS (Rec: 02/08/17 04:54 AFS [id number]) Pain Assessment Risk of pain, acute, chronic Effectiveness Pain Measures Meet Patient's Identified Yes Goals Other Comment Pt is asleep, no sign of distress Document 02/08/17 08:00 SUTTOB (Rec: 02/08/17 08:20 SUTTOB [id number]) Pain Assessment Risk of pain, acute, chronic Location Bilateral lower legs Pain Type Pain Description Other Comment pt denies pain at this time Document 02/08/17 12:00 SD (Rec: 02/08/17 13:12 SD [id number]) Pain Assessment Risk of pain, acute, chronic Location Bilateral lower legs Numerical Intensity Rating 9 Pain Type Acute Pain Description Aching Management Interventions Medication Rest Position change Distraction Relaxation Effectiveness Pain Measures Meet Patient's Identified Yes Goals Edit Status 02/08/17 14:40 SD (Rec: 02/08/17 14:40 SD [id number]) Active=>Discharge RT- O2 Oxygen Therapy Start: 02/07/17 18: 07 Freq: .PRN Status: Discharge Created 02/07/17 18:12 ABG (Rec: 02/07/17 18:12 BKG [id number]) Document 02/07/17 19:00 DS (Rec: 02/08/17 03:06 DS [id number]) Oxygen O2 Delivery Note: For Peds patients who may require O2 via blowby, the desired goals are the same as the Protocol below at 92%. O2 Protocol (keep sats. => 92%) Yes O2 Sat. (%) (92-100) 98 Delivery Device Room Air Frequency 02/07/17 20:26 DS (Rec: 02/07/17 20:26 DS [id number]) Date/Time Frequency 02/07/17 20:26 .PRN Document 02/08/17 10:00 BWG (Rec: 02/08/17 10:56 BWG [id number]) Oxygen O2 Delivery Note: For Peds patients who may require O2 via blowby, the desired goals are the same as the Protocol below at 92%. O2 Protocol (keep sats. => 92%) Yes O2 Sat. (%) (92-100) 97 Delivery Device Room Air Edit Status 02/08/17 14:40 SD (Rec: 02/08/17 14:40 SD [id number]) Active=>Discharge Rehab Inpt PT Hold/Refusal Note Start: 02/08/17 13: 43 Freq: Status: Discharge Created 02/08/17 13:43 MG (Rec: 02/08/17 13:43 MG [id number]) Document 02/08/17 13:44 MG (Rec: 02/08/17 13:44 MG [id number]) REHAB PT INPATIENT NOTE HOLD/PATIENT REFUSAL Comment: PT order received. Per BELINDA Perry pt is set to d/c right now and PT doesn't need to see her prior to d/c. Edit Status 02/08/17 14:40 SD (Rec: 02/08/17 14:40 SD [id number]) Active=>Discharge Rehab PT INPT Charges Start: 02/08/17 13: 43 Freq: Status: Discharge Created 02/08/17 13:43 MG (Rec: 02/08/17 13:43 MG [id number]) Edit Status 02/08/17 14:40 SD (Rec: 02/08/17 14:40 SD [id number]) Active=>Discharge Rehab PT INPT EVAL Start: 02/08/17 13: 43 Freq: Status: Discharge Created 02/08/17 13:43 MG (Rec: 02/08/17 13:43 MG [id number]) Edit Status 02/08/17 14:40 SD (Rec: 02/08/17 14:40 SD [id number]) Active=>Discharge Rehab PT INPT SOAP/DC Summary Start: 02/08/17 13: 43 Freq: Status: Discharge Created 02/08/17 13:43 MG (Rec: 02/08/17 13:43 MG [id number]) Edit Status 02/08/17 14:40 SD (Rec: 02/08/17 14:40 SD [id number]) Active=>Discharge Social Work Admission Screen Start: 02/08/17 14: 52 Freq: Status: Discharge Document 02/08/17 14:52 MS (Rec: 02/08/17 14:57 MS [id number]) Social Work Admission Screen SW - Admission Screening Patient From Home alone Patient Primary Tub Attendant Pt daughter Rony Needs Lives alone and is over 65 Limited support system Anticipated Discharge Plan Home independent 02/08/17 14:53 Care Manage/Social Work by Karley Gomes Social Work Note D: This 81 y/o female with Murphy MCR was admitted observation status on for acute diarrhea with probable Cdiff and hypokalemia. Pt resides at home alone, has life line and local supportive daughter. Pt states she was "kicked out of hospice" a few weeks ago because "I wouldn't ". Pt has [facility] application in progress; per dtr request, SW inquired on status - left HCS worker Ekaterina ([phone]). Pt am rounds, pt able to d/c today. SW spoke with daughter, states able to corn picker pt at 6pm today. Per pt request, SW provided pt with CG information and resources. A/P: Pt has d/c home with daughter. No barriers to d/c or additional SW needs noted. DON Luciano Initialized on 02/08/17 14:53 - END OF NOTE Created 02/08/17 14:52 MS (Rec: 02/08/17 14:52 MS [id number]) Vital Signs Start: 02/07/17 18: 07 Freq: Q8HR Status: Discharge Created 02/07/17 18:12 ABG (Rec: 02/07/17 18:12 BKG DAYENY [id number]) Document 02/07/17 19:07 AT (Rec: 02/07/17 19:08 AT [id number]) Vital Signs Risk for imbalanced body tem, impaired ventilation, decreased cardiac output Risk for imbalanced body tem, impaired ventilation, decreased cardiac output Temperature Temperature (36.5 C-37.5 C) 36.8 C Delivery Source Oral Heart Rate Radial Heart Rate (60-100 beats/min) 68 Respirations Respiratory Rate (12-24 breaths/min) 14 O2 Saturation (92-100 %) 100 Source Room air Blood Pressure Right Brachial artery Blood Pressure (90/60-130/80) 125/40 Mean Arterial Pressure 68 Source Automatic Patient Position Supine Sedation Level Sedation scale 0-Fully awake Document 02/07/17 23:50 AFS (Rec: 02/08/17 06:42 AFS [id number]) Vital Signs Risk for imbalanced body tem, impaired ventilation, decreased cardiac output Risk for imbalanced body tem, impaired ventilation, decreased cardiac output Temperature Temperature (36.5 C-37.5 C) 36.9 C Delivery Source Oral Heart Rate Radial Heart Rate (60-100 beats/min) 72 Respirations Respiratory Rate (12-24 breaths/min) 18 O2 Saturation (92-100 %) 100 Source Room air Blood Pressure Right Brachial artery Blood Pressure (90/60-130/80) 141/51 Mean Arterial Pressure 81 Source Automatic Patient Position Supine Sedation Level Sedation scale 0-Fully awake Document 02/08/17 11:59 SD (Rec: 02/08/17 12:28 SD [id number]) Vital Signs Risk for imbalanced body tem, impaired ventilation, decreased cardiac output Risk for imbalanced body tem, impaired ventilation, decreased cardiac output Temperature Temperature (36.5 C-37.5 C) 36.7 C Delivery Source Oral Heart Rate Radial Heart Rate (60-100 beats/min) 62 Respirations Respiratory Rate (12-24 breaths/min) 16 O2 Saturation (92-100 %) 98 Source Room air Blood Pressure Right Brachial artery Blood Pressure (90/60-130/80) 130/50 Mean Arterial Pressure 76 Source Automatic Patient Position Supine Sedation Level Sedation scale 0-Fully awake Edit Status 02/08/17 14:40 SD (Rec: 02/08/17 14:40 SD [id number]) Active=>Discharge - HOSPITAL COURSE Hospital Course: Patient was a 81 year old female admitted for diarrhea and possible C diff and electrolyte imbalances. She came in for low magnesium and potassium.She was started on IVF normal saline with potassium and magnesium sulfate IV. She continued on her pain medications from home and given a clear diet. She was evaluated by case management and social work for home needs. She continued on all home medications and stool culture was negative for Cdiff. Her diarrhea improved with IVF and bowel rest. She has a history of alcohol abuse and was monitored for behavior changes and worked with PT for assist with ambulation. Patient stayed only 1 night and wanted to go home earlier than anticipated so daughter came to pick her upa nd she was discharged home back on all her home medications. - ALLERGIES Allergies/Adverse Reactions: Allergies Allergy/AdvReac Type Severity Reaction Status Date / Time No Known Drug Allergies Allergy Verified 06/18/16 15:45 - MEDICATIONS Home Medications: Ambulatory Orders Medication Instructions Recorded Confirmed Aspirin [Aspir 81] 81 mg PO DAILY 04/21/15 05/10/16 oxyCODONE [Roxicodone] 5 mg PO Q6H PRN 04/21/15 05/10/16 Potassium Chloride 10 meq PO DAILY 05/26/15 05/10/16 Gabapentin 300 mg PO TID 05/27/15 05/10/16 Escitalopram [Lexapro] 10 mg PO DAILY 06/30/15 05/10/16 Melatonin 3 mg PO QPM PRN 06/30/15 05/10/16 Ascorbic Acid [Vitamin C] 500 mg PO DAILY 08/09/15 05/10/16 Metoprolol Tartrate 12.5 mg PO BID 08/09/15 05/10/16 Cholecalciferol (Vitamin D3) 2,000 unit PO DAILY 11/18/15 05/10/16 [Vitamin D3] Multivitamin [Multivitamins] 1 tab PO DAILY 11/18/15 05/10/16 oxyCODONE ER [OxyCONTIN] 10 mg PO Q12H 11/18/15 05/10/16 Allopurinol 100 mg PO DAILY 05/10/16 05/10/16 raNITIdine [Zantac] 150 mg PO BID 05/10/16 05/10/16 Furosemide [Lasix] 20 mg PO DAILY #0 05/12/16 05/10/16 Ondansetron Odt [Zofran Odt] 4 mg TL Q6H PRN #10 tablet 06/18/16 Neutra-Phos [K-Phos Neutral] 250 mg PO TIDWM #20 tablet 02/08/17 oxyCODONE [Roxicodone] 5 mg PO Q4HR PRN #0 tablet 02/08/17 - PHYSICAL EXAM AT DISCHARGE General Appearance: positive: No acute distress, Alert, Mild distress Eyes Bilateral: positive: Normal inspection, PERRL, EOMI ENT: positive: ENT inspection nml, Pharynx nml, No signs of dehydration Neck: positive: Thyroid nml, No JVD Respiratory: positive: Chest non-tender, No respiratory distress, Breath sounds nml Cardiovascular: positive: Regular rate & rhythm, No murmur, No gallop Abdomen: positive: Non-tender, Other (distention chronic) Rectal: negative: Black stool, Mass Skin: positive: No rash, Warm, Dry Extremities: positive: Non-tender, Full ROM, Nml appearance Neurologic/Psychiatric: positive: Oriented x3, Motor nml, Weakness, Other ( anxious and wanting to go home) - LABS Result Diagrams: 02/07/17 16:40 02/08/17 06:04 Other Lab Results: Laboratory Tests 02/07/17 02/07/17 02/07/17 16:40 16:40 16:40 WBC 5.3 RBC 3.98 L Hgb 9.7 L Hct 30.9 L MCV 77.6 L MCH 24.5 L MCHC 31.5 L RDW 19.5 H Plt Count 107 L MPV 8.3 Reticulocyte % (Auto) Neut # 3.5 Lymph # 1.1 L [place] # 0.6 Eos # 0.1 Baso # 0.0 Absolute Nucleated RBC 0.01 Nucleated RBCs 0.1 Absolute Retic Sodium 137 Potassium 2.3 L* Chloride 103 Carbon Dioxide 26 Anion Gap 8.0 BUN 29 H Creatinine 1.4 H Estimated GFR (MDRD) 36 L Glucose 194 H Calcium 7.3 L Phosphorus 2.2 L Magnesium 1.5 L Iron TIBC % Saturation Transferrin Ferritin Total Bilirubin 0.9 AST 43 H ALT 18 Alkaline Phosphatase 114 Ammonia Lactate Dehydrogenase C-Reactive Protein Total Protein 6.2 L Albumin 1.6 L Globulin 4.6 H Albumin/Globulin Ratio 0.3 L Lipase 52 H Vitamin B12 02/07/17 02/07/17 02/07/17 19:30 19:30 19:30 WBC RBC 3.85 L Hgb Hct MCV MCH MCHC RDW Plt Count MPV Reticulocyte % (Auto) 1.87 Neut # Lymph # [place] # Eos # Baso # Absolute Nucleated RBC Nucleated RBCs Absolute Retic 0.072 Sodium Potassium Chloride Carbon Dioxide Anion Gap BUN Creatinine Estimated GFR (MDRD) Glucose Calcium Phosphorus Magnesium Iron 15 L TIBC 307 % Saturation 5 L Transferrin 219 Ferritin 11.4 Total Bilirubin AST ALT Alkaline Phosphatase Ammonia Lactate Dehydrogenase C-Reactive Protein Total Protein Albumin Globulin Albumin/Globulin Ratio Lipase Vitamin B12 753 02/07/17 02/07/17 02/08/17 19:30 19:30 06:04 WBC RBC Hgb Hct MCV MCH MCHC RDW Plt Count MPV Reticulocyte % (Auto) Neut # Lymph # [place] # Eos # Baso # Absolute Nucleated RBC Nucleated RBCs Absolute Retic Sodium 142 Potassium 3.1 L Chloride 110 Carbon Dioxide 26 Anion Gap 6.0 BUN 23 H Creatinine 1.2 H Estimated GFR (MDRD) 43 L Glucose 84 Calcium 7.2 L Phosphorus 2.7 Magnesium 1.9 Iron TIBC % Saturation Transferrin Ferritin Total Bilirubin 1.0 AST 36 ALT 17 Alkaline Phosphatase 102 Ammonia Lactate Dehydrogenase 189 C-Reactive Protein 4.8 H Total Protein 5.6 L Albumin 1.5 L Globulin 4.1 Albumin/Globulin Ratio 0.4 L Lipase Vitamin B12 02/08/17 09:25 WBC RBC Hgb Hct MCV MCH MCHC RDW Plt Count MPV Reticulocyte % (Auto) Neut # Lymph # [place] # Eos # Baso # Absolute Nucleated RBC Nucleated RBCs Absolute Retic Sodium Potassium Chloride Carbon Dioxide Anion Gap BUN Creatinine Estimated GFR (MDRD) Glucose Calcium Phosphorus Magnesium Iron TIBC % Saturation Transferrin Ferritin Total Bilirubin AST ALT Alkaline Phosphatase Ammonia 26.6 Lactate Dehydrogenase C-Reactive Protein Total Protein Albumin Globulin Albumin/Globulin Ratio Lipase Vitamin B12 - FOLLOW UP Follow Up: patient was told she needed to followup with her family care provider. She agreed verbally and was to go home with daughter. She was instructed to take all home medications as prescribed and no home prescriptions given. Will have pt follow up with PCP for further care or return if pt worsens. Pt comfortable with plan. time spent on discharge for education and counseling was 45 minutes
== END 2017-02-08 14:40 | disposition home or self-care (01) | DRG 392 ==
LOC: EDUNIT# → ED 15:22 → OBS 18:05 → UNDOADMOB 18:05 → OBSVTOIN 18:42
PROVIDERS: ADMIT Nurse Practitioner; ATTEND Nurse Practitioner
DX: R19.7 Diarrhea, unspecified (principal); F10.188 Alcohol abuse with other alcohol-induced disorder; F10.159 Alcohol abuse with alcohol-induced psychotic disorder, unspecified; K70.31 Alcoholic cirrhosis of liver with ascites; F11.959 Opioid use, unspecified with opioid-induced psychotic disorder, unspecified; E86.0 Dehydration; E87.6 Hypokalemia; K74.60 Unspecified cirrhosis of liver; E87.8 Other disorders of electrolyte and fluid balance, not elsewhere classified; G89.29 Other chronic pain; M54.9 Dorsalgia, unspecified; E66.9 Obesity, unspecified; Z68.31 Body mass index [BMI] 31.0-31.9, adult; I10 Essential (primary) hypertension; E11.9 Type 2 diabetes mellitus without complications; I25.10 Atherosclerotic heart disease of native coronary artery without angina pectoris; N28.9 Disorder of kidney and ureter, unspecified; M19.90 Unspecified osteoarthritis, unspecified site; M10.9 Gout, unspecified; Z86.718 Personal history of other venous thrombosis and embolism; F17.210 Nicotine dependence, cigarettes, uncomplicated; Z79.82 Long term (current) use of aspirin; Z79.899 Other long term (current) drug therapy
CPT/HCPCS: 36415; 80053; 82140; 82607; 82728; 83540; 83615; 83690; 83735; 84100; 84466; 85025; 85044; 86140; 87640; 96361; 96374; 99284

== ENCOUNTER 2017-02-09 20:53 | Outpatient (CLI) | payer MEDICARE | END 2017-02-09 20:54 | disposition EMS.NT | LOC: EMS 20:53 | PROVIDERS: ATTEND Surgery | DX: Z03.89 Encounter for observation for other suspected diseases and conditions ruled out (principal); W18.30XA Fall on same level, unspecified, initial encounter ==

== ENCOUNTER 2017-02-18 09:25 | Outpatient (CLI) | payer MEDICARE | END 2017-02-18 09:26 | disposition EMS.NT | LOC: EMS 09:25 | PROVIDERS: ATTEND Surgery | DX: Z03.89 Encounter for observation for other suspected diseases and conditions ruled out (principal) ==

== ENCOUNTER 2017-02-19 01:32 | Outpatient (CLI) | payer MEDICARE | END 2017-02-19 01:33 | disposition critical access hospital (66) | LOC: EMS 01:32 | PROVIDERS: ATTEND Surgery | DX: T14.90 Injury, unspecified (principal) | CPT/HCPCS: A0425; A0429 ==

== ENCOUNTER 2017-02-19 01:57 | Emergency (ER) | payer MEDICARE ==
[2017-02-19 02:31] LABS: BASOPHILS # (AUTO) 0.1 10^3/uL (0.0-0.1); BASOPHILS % (AUTO) 0.7 %; EOSINOPHILS % (AUTO) 0.3 %; HCT - HEMATOCRIT 34.6 % (37.0-47.0); HGB - HEMOGLOBIN 11.3 g/dL (12.0-16.0); LYMPHOCYTES # (AUTO) 1.3 10^3/uL (1.5-3.5); LYMPHOCYTES % (AUTO) 13.1 %; MEAN CORPUSCULAR HGB CONC 32.6 g/dL (32.0-36.0); MEAN CORPUSCULAR VOLUME 76.8 fL (81.0-99.0); MEAN PLATELET VOLUME 7.6 fL (7.9-10.8); MONOCYTES # (AUTO) 0.8 10^3/uL (0.0-1.0); MONOCYTES % (AUTO) 7.8 %; NEUTROPHILS # (AUTO) 7.8 10^3/uL (1.5-6.6); NEUTROPHILS % (AUTO) 78.1 %; RED BLOOD COUNT 4.51 10^6/uL (4.20-5.40); RED CELL DISTRIBUTION WIDTH 21.3 % (12.0-15.0); UNCORRECTED WHITE BLOOD COUNT 9.9 x10^3/uL; WHITE BLOOD COUNT 9.9 x10^3/uL (4.8-10.8)
[2017-02-19 02:42] LABS: ALBUMIN/GLOBULIN RATIO 0.4 (1.0-2.2); BILIRUBIN,TOTAL 1.4 mg/dL (0.2-1.0); CALCIUM 7.7 mg/dL (8.5-10.3); CREATININE 1.7 mg/dL (0.4-1.0); POTASSIUM 2.6 mmol/L (3.5-5.0); TOTAL PROTEIN 7.4 g/dL (6.7-8.2)
[2017-02-19 02:42] LABS: BILIRUBIN,URINE NEGATIVE (NEGATIVE)
[2017-02-19] MEDS ORDERED: POTASSIUM CHLORIDE 20 MEQ TABLET PO STA (02:44)
[2017-02-19 02:49] LABS: UA w/ MICROSCOPIC CHARGE YES; WBC,URINE >25 /HPF (0-5)
[2017-02-19 02:50] LABS: UR CULTURE IF IND NOT INDICATED
[2017-02-19] MEDS ORDERED: NITROFURANTOIN MACRO 100 MG CAPSULE PO STA (03:07)
--- NOTE | 2017-02-19 03:09 | CT Preliminary Report ---
Exam: CT Head W/O IMPRESSION: Generalized age-related cortical atrophic changes without evidence of acute intracranial abnormality. [facility] SITE ID: [id number]
--- NOTE | 2017-02-19 03:11 | CT Report ---
EXAM: CT HEAD EXAM DATE: 02/19/2017 02:55 AM. CLINICAL HISTORY: Fall. Altered mental status. COMPARISON: 05/17/2013. TECHNIQUE: Multiaxial CT images were obtained from the foramen magnum to the vertex. IV contrast: Non e. Reformats: Coronal. In accordance with CT protocol optimization, one or more of the following dose reduction techniques w ere utilized for this exam: automated exposure control, adjustment of mA and/or KV based on patient s ize, or use of iterative reconstructive technique. FINDINGS: Parenchyma: No intraparenchymal hemorrhage. No evidence of mass, midline shift, or CT findings of acu te infarction. Jeff-white differentiation is distinct. Extraaxial Spaces: Normal for age. No subdural or epidural collections identified. Ventricles: The ventricles and cortical sulci are enlarged, consistent with age-related tissue loss. Sinuses: Imaged paranasal sinuses, orbits, and mastoids show no significant abnormality. Bones: No evidence of fracture or calvarial defect. Other: Diffuse chronic microangiopathic white matter changes are evident. No change when compared to the prior study. IMPRESSION: Generalized age-related cortical atrophic changes without evidence of acute intracranial abnormality. [facility] Referring Provider Line: [phone] SITE ID: [id number]
[2017-02-19] MEDS ORDERED: POTASSIUM BICARB 25 MEQ TABLET PO STA (03:28)
--- NOTE | 2017-02-19 03:34 | ED Physician Documentation ---
PD HPI Fall - Stated complaint Stated Complaint: FALL/ALOC - Chief complaint Chief Complaint: Neuro - History obtained from History obtained from: Patient, EMS - History of Present Illness Mechanism of injury: Slipped Fall distance: From bed Where injury occurred: Home Timing - onset: How many minutes ago (30) Associated symptoms: AMS Similar symptoms before: Work up / diagnostics, Treatment Recently seen: Not recently seen - Additional information Additional information: Patient is an 81 year old female with multiple comorbidities who was brought in by ems for falling. According to ems they state that they have seen the patient almost daily over the last year. they said tonight that when her life alarm went off she had fallen from the bed again. patient showed no signs of trauma but did seem more confused. They state that there is a daughter that tends to take care of the patient and she is in control of the meds, but they don't know how often the daughter comes. ems state that they have seen the patient like this before but they are worried about her and think that she might need social work follow up for placement since she lives at home with some poorly managed dogs, but nobody else to help take care of her. 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 ACADEMIC: None : Renal insuffiency HEENT: Other Psych: Depression Musculoskeletal: Osteoarthritis, Gout, Chronic back pain Derm: None - Past Surgical History Past Surgical History: Yes General: Appendectomy HEENT: Cataracts - Present Medications Home Medications: Ambulatory Orders Medication Instructions Recorded Confirmed Aspirin [Aspir 81] 81 mg PO DAILY 04/21/15 05/10/16 oxyCODONE [Roxicodone] 5 mg PO Q6H PRN 04/21/15 05/10/16 Potassium Chloride 10 meq PO DAILY 05/26/15 05/10/16 Gabapentin 300 mg PO TID 05/27/15 05/10/16 Escitalopram [Lexapro] 10 mg PO DAILY 06/30/15 05/10/16 Melatonin 3 mg PO QPM PRN 06/30/15 05/10/16 Ascorbic Acid [Vitamin C] 500 mg PO DAILY 08/09/15 05/10/16 Metoprolol Tartrate 12.5 mg PO BID 08/09/15 05/10/16 Cholecalciferol (Vitamin D3) 2,000 unit PO DAILY 11/18/15 05/10/16 [Vitamin D3] Multivitamin [Multivitamins] 1 tab PO DAILY 11/18/15 05/10/16 oxyCODONE ER [OxyCONTIN] 10 mg PO Q12H 11/18/15 05/10/16 Allopurinol 100 mg PO DAILY 05/10/16 05/10/16 raNITIdine [Zantac] 150 mg PO BID 05/10/16 05/10/16 Furosemide [Lasix] 20 mg PO DAILY #0 05/12/16 05/10/16 Ondansetron Odt [Zofran Odt] 4 mg TL Q6H PRN #10 tablet 06/18/16 Neutra-Phos [K-Phos Neutral] 250 mg PO TIDWM #20 tablet 02/08/17 oxyCODONE [Roxicodone] 5 mg PO Q4HR PRN #0 tablet 02/08/17 - Allergies Allergies/Adverse Reactions: Allergies Allergy/AdvReac Type Severity Reaction Status Date / Time No Known Drug Allergies Allergy Verified 06/18/16 15:45 - Social History Does the pt smoke?: No Smoking Status: Unknown if ever smoked Does the pt drink ETOH?: Yes Does the pt have substance abuse?: Yes - Immunizations Immunizations are current?: Yes Immunizations: Other immun not current - POLST Patient has POLST: No PD ED PE NORMAL - Vitals Vital signs reviewed: Yes - General General: No acute distress - HEENT HEENT: Atraumatic, PERRL - Cardiac Cardiac: No murmur - Respiratory Respiratory: No respiratory distress - Abdomen Abdomen: Soft, Non distended - Neuro Neuro: No motor deficit, No sensory deficit PD ED PE EXPANDED - HEENT HEENT: Dry mucous membranes - Extremities Extremities: Pedal edema bilateral Results - Vitals Vitals: Vital Signs - 24 hr 02/19/17 02:05 Temperature 36.8 C Heart Rate 72 Respiratory 16 Rate Blood Pressure 136/49 H O2 Saturation 94 Oxygen O2 Source [With Activity] Room air O2 Source [Without Activity] Room air O2 Source Room air - Labs Labs: Laboratory Tests 02/19/17 02/19/17 02/19/17 02:22 02:22 02:34 WBC 9.9 RBC 4.51 Hgb 11.3 L Hct 34.6 L MCV 76.8 L MCH 25.0 L MCHC 32.6 RDW 21.3 H Plt Count 119 L MPV 7.6 L Neut # 7.8 H Lymph # 1.3 L Spencer # 0.8 Eos # 0.0 Baso # 0.1 Absolute Nucleated RBC 0.00 Nucleated RBCs 0.0 Sodium 139 Potassium 2.6 L Chloride 104 Carbon Dioxide 24 Anion Gap 11.0 BUN 35 H Creatinine 1.7 H Estimated GFR (MDRD) 29 L Glucose 139 H Calcium 7.7 L Total Bilirubin 1.4 H AST 42 ALT 19 Alkaline Phosphatase 150 H Total Creatine Kinase 84 Total Protein 7.4 Albumin 2.0 L Globulin 5.4 H Albumin/Globulin Ratio 0.4 L Lipase 49 Urine Color YELLOW Urine Clarity HAZY Urine pH 6.0 Ur Specific [place] 1.025 Urine Protein NEGATIVE Urine Glucose (UA) NEGATIVE Urine Ketones NEGATIVE Urine Occult Blood NEGATIVE Urine Nitrite POSITIVE H Urine Bilirubin NEGATIVE Urine Urobilinogen 0.2 (NORMAL) Ur Leukocyte Esterase NEGATIVE Urine RBC 6-10 H Urine WBC >25 H Urine WBC Clumps PRESENT Ur Squamous Epith Cells MOD Squamous H Urine Bacteria Moderate H Urine Casts 6-10 Hyaline Casts Ur Microscopic Review INDICATED Urine Culture Comments NOT INDICATED PD MEDICAL DECISION MAKING - ED course Complexity details: reviewed old records, reviewed results, re-evaluated patient ED course: Patient was seen and examined at bedside. iv access was gained and labs were drawn. Patient was sent for imaging due to the change in mental status after falling. When patient returned the results were reviewed. Patient was found to have a urinary tract infection and hypokalemia. Patient was treated with potassium and macrobid after reviewing previous culture results. Patient was signed over to the morning team
[2017-02-19] MEDS ORDERED: SODIUM CHLORIDE 0.9% 500 ML IV ONE (03:43)
[2017-02-19] MEDS ORDERED: POTASSIUM BICARB 25 MEQ TABLET PO ONE (04:11)
[2017-02-19] MEDS ORDERED: NITROFURANTOIN MACRO 100 MG CAPSULE PO ONE (04:11)
[2017-02-19 12:25] VITALS: BP 119/47
--- NOTE | 2017-02-19 12:25 | ED Physician Documentation ---
ED Addendum - Addendum Addendum: 02/19Patient was seen by social work who discussed the patient's care with her care provider and also with her daughter who is coming in to pick her up. There were a lot of social issues however it appears that the patient will be going home with a home health referral. We will continue the Macrobid that was started here for mild urinary tract infection. 12:24
== END 2017-02-19 13:10 | disposition home or self-care (01) ==
LOC: EDUNIT# → ED 01:57
DX: N39.0 Urinary tract infection, site not specified (principal); E87.6 Hypokalemia; Z91.81 History of falling; F03.90 Unspecified dementia, unspecified severity, without behavioral disturbance, psychotic disturbance, mood disturbance, and anxiety; I10 Essential (primary) hypertension; E11.9 Type 2 diabetes mellitus without complications; I25.10 Atherosclerotic heart disease of native coronary artery without angina pectoris; Z86.718 Personal history of other venous thrombosis and embolism; Z79.82 Long term (current) use of aspirin
CPT/HCPCS: 36415; 70450; 80053; 81001; 82550; 83690; 83735; 85025; 99284; 99285; A9270; 81003; 87086

== ENCOUNTER 2017-02-28 10:55 | Outpatient (CLI) | payer MEDICARE | END 2017-02-28 10:56 | disposition EMS.NT | LOC: EMS 10:55 | PROVIDERS: ATTEND Surgery | DX: Z03.89 Encounter for observation for other suspected diseases and conditions ruled out (principal); W18.30XA Fall on same level, unspecified, initial encounter ==

== ENCOUNTER 2017-03-01 01:16 | Outpatient (CLI) | payer MEDICARE | END 2017-03-01 01:17 | disposition EMS.NT | LOC: EMS 01:16 | PROVIDERS: ATTEND Surgery | DX: Z03.89 Encounter for observation for other suspected diseases and conditions ruled out (principal) ==

== ENCOUNTER 2017-03-07 07:59 | Outpatient (CLI) | payer MEDICARE | END 2017-03-07 08:00 | disposition EMS.NT | LOC: EMS 07:59 | PROVIDERS: ATTEND Surgery | DX: Z03.89 Encounter for observation for other suspected diseases and conditions ruled out (principal) ==

== ENCOUNTER 2017-03-08 06:44 | Outpatient (CLI) | payer MEDICARE | END 2017-03-08 06:45 | disposition EMS.NT | LOC: EMS 06:44 | PROVIDERS: ATTEND Surgery | DX: Z03.89 Encounter for observation for other suspected diseases and conditions ruled out (principal) ==

== ENCOUNTER 2017-03-15 15:46 | Outpatient (CLI) | payer MEDICARE | END 2017-03-15 15:47 | disposition critical access hospital (66) | LOC: EMS 15:46 | PROVIDERS: ATTEND Surgery | DX: R53.1 Weakness (principal); R15.9 Full incontinence of feces | CPT/HCPCS: A0425; A0429 ==

== ENCOUNTER 2017-03-15 16:11 | Emergency (ER) | payer MEDICARE ==
[2017-03-15] MEDS ORDERED: SODIUM CHLORIDE 0.9% 1,000 ML IV ONE (16:36)
[2017-03-15] MEDS ORDERED: SODIUM CHLORIDE FLUSH 0.9% 10 ML SYRINGE IVP ONE (16:43)
--- NOTE | 2017-03-15 17:11 | ED Physician Documentation ---
History of Present Illness - Stated complaint Stated Complaint: FAILURE TO THRIVE - Chief complaint Chief Complaint: General - History obtained from History obtained from: Patient - Additonal information Additional information: Patient is a 82-year-old female who currently resides at home alone. She has 2 dogs that live with her and also a daughter who comes by occasionally. There is some concern about the healthiness of this patient daughter relationship and Adult Protective Services has been called multiple times. EMS says that they are called out to her house nearly every day for help in doing small household duties like getting her to the bathroom or getting her something to eat. Today they were called out and they found the patient lying in feces in her bed. They were unable to get her out of bed and brought her in for evaluation. The patient was very reticent to leave because of her 2 dogs at home. The patient says that on occasion she can ambulate although has had some problems lately with weakness and normally she uses a walker although this is more difficult. She complains of mild abdominal cramping this week otherwise has no complaints such as chest pain, shortness of breath, nausea, vomiting, constipation or diarrhea. The patient does not have any known health problems but does take oxycodone 5 mg 3 times daily for chronic body pain. She denies any other medications has not had any surgeries and does not have any known allergies. She does not smoke or drink. EMS says her house is so bad that it is unfit for habitation. Review of systems: For pertinent positive and negatives in the review of systems please see the history of present illness, otherwise all other systems have been reviewed and are negative. Dragon disclaimer: Parts of this medical record were created using voice recognition technology. Because of the inherent limitations of this system, occasional same sounding word substitutions do occur and persist despite proofreading. Please read the document for context. Review of Systems Ten Systems: 10 systems reviewed and negative Constitutional: denies: Fever, Chills, Myalgias Eyes: denies: Loss of vision, Decreased vision Throat: denies: Oral lesions / sores, Sore throat Cardiac: denies: Chest pain / pressure, Palpitations Respiratory: denies: Dyspnea, Cough, Hemoptysis, Wheezing GI: denies: Abdominal Pain, Abdominal Swelling, Nausea, Vomiting, Constipation, Diarrhea, Hematemesis : denies: Dysuria, Frequency, Hesitancy, Unable to Void Skin: denies: Rash Neurologic: denies: Generalized weakness, Focal weakness, Numbness, Difficulty speaking, Syncope, Seizure, Confused, Altered mental status Psychiatric: denies: Depressed, Suicidal, Homicidal, Hallucinations, Delusions, Anxiety Endocrine: denies: Polydypsia, Polyuria, Polyphagia, Weight loss, Weight gain, Easy bruising / bleeding Immunocompromised: denies: Immunocompromised, HIV/AIDS PD PAST MEDICAL HISTORY - Past Medical History Cardiovascular: Hypertension, Coronary artery disease, Deep vein thrombosis Respiratory: None Neuro: Dementia Endocrine/Autoimmune: Type 2 diabetes GI: Cirrhosis 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 : Renal insuffiency HEENT: Other Psych: Depression Musculoskeletal: Osteoarthritis, Gout, Chronic back pain Derm: None - Past Surgical History Past Surgical History: Yes General: Appendectomy HEENT: Cataracts - Present Medications Home Medications: Ambulatory Orders Medication Instructions Recorded Confirmed Escitalopram [Lexapro] 10 mg PO DAILY 06/30/15 03/15/17 Melatonin 3 mg PO QPM PRN 06/30/15 03/15/17 Metoprolol Tartrate 12.5 mg PO BID 08/09/15 03/15/17 Furosemide [Lasix] 20 mg PO DAILY #0 05/12/16 03/15/17 oxyCODONE [Roxicodone] 5 mg PO Q4HR PRN #0 tablet 02/08/17 03/15/17 - Allergies Allergies/Adverse Reactions: Allergies Allergy/AdvReac Type Severity Reaction Status Date / Time No Known Drug Allergies Allergy Verified 03/15/17 17:57 - Social History Does the pt smoke?: No Smoking Status: Unknown if ever smoked Does the pt drink ETOH?: Yes Does the pt have substance abuse?: Yes - Immunizations Immunizations are current?: Yes Immunizations: Other immun not current - POLST Patient has POLST: No PD ED PE NORMAL - Vitals Vital signs reviewed: Yes - General General: Alert and oriented X 3, No acute distress, Well developed/nourished, Other (Patient is alert and oriented 3. She does appear disheveled but judgment mood insight and affect are normal. There does not appear to be any significant problems with cognition or memory) - HEENT HEENT: Atraumatic, PERRL - Cardiac Cardiac: RRR, No murmur, No gallop, No rub - Respiratory Respiratory: No respiratory distress, Clear bilaterally - Abdomen Abdomen: Normal bowel sounds, Non tender, Non distended - Derm Derm: Normal color, Warm and dry, No rash - Extremities Extremities: No deformity, No tenderness to palpate, Normal ROM s pain, Other ( Overall the patient is slightly disheveled but not toxic or ill. She has trace edema bilateral lower extremities and some irritation and sores on her legs however there are very mild) - Neuro Neuro: Alert and oriented X 3, modern and contemporary art curator 2-12 intact, No motor deficit, No sensory deficit - Psych Psych: Normal mood, Normal affect Results - Vitals Vitals: Vital Signs - 24 hr 03/15/17 16:12 Temperature 36.9 C Heart Rate 58 L Respiratory 18 Rate Blood Pressure 127/56 L O2 Saturation 97 Oxygen O2 Source [With Activity] Room air O2 Source [Without Activity] Room air O2 Source Room air - Labs Labs: Laboratory Tests 03/15/17 03/15/17 03/15/17 16:45 16:45 16:45 WBC 4.7 L RBC 4.17 L Hgb 10.4 L Hct 32.7 L MCV 78.5 L MCH 24.9 L MCHC 31.7 L RDW 22.1 H Plt Count 112 L MPV 8.3 Neut # 2.9 Lymph # 1.1 L [place] # 0.5 Eos # 0.2 Baso # 0.0 Absolute Nucleated RBC 0.00 Nucleated RBCs 0.0 Manual Slide Review Indicated RBC Morph Micro Appear 2+ MICROCYTOSIS Sodium 140 Potassium 3.0 L Chloride 102 Carbon Dioxide 33 H Anion Gap 5.0 L BUN 18 Creatinine 1.2 H Estimated GFR (MDRD) 43 L Glucose 101 H Calcium 7.4 L Magnesium Total Bilirubin 0.9 AST 40 ALT 17 Alkaline Phosphatase 139 H Total Creatine Kinase 87 Troponin I < 0.04 Total Protein 6.5 L Albumin 1.7 L Globulin 4.8 H Albumin/Globulin Ratio 0.4 L Lipase 46 Urine Color Urine Clarity Urine pH Ur Specific [place] Urine Protein Urine Glucose (UA) Urine Ketones Urine Occult Blood Urine Nitrite Urine Bilirubin Urine Urobilinogen Ur Leukocyte Esterase Urine RBC Urine WBC Ur Squamous Epith Cells Urine Bacteria Ur Microscopic Review Urine Culture Comments 03/15/17 03/15/17 16:45 17:24 WBC RBC Hgb Hct MCV MCH MCHC RDW Plt Count MPV Neut # Lymph # [place] # Eos # Baso # Absolute Nucleated RBC Nucleated RBCs Manual Slide Review RBC Morph Micro Appear Sodium Potassium Chloride Carbon Dioxide Anion Gap BUN Creatinine Estimated GFR (MDRD) Glucose Calcium Magnesium 1.6 L Total Bilirubin AST ALT Alkaline Phosphatase Total Creatine Kinase Troponin I Total Protein Albumin Globulin Albumin/Globulin Ratio Lipase Urine Color YELLOW Urine Clarity HAZY Urine pH 6.0 Ur Specific [place] 1.010 Urine Protein NEGATIVE Urine Glucose (UA) NEGATIVE Urine Ketones NEGATIVE Urine Occult Blood NEGATIVE Urine Nitrite POSITIVE H Urine Bilirubin NEGATIVE Urine Urobilinogen 1 (NORMAL) Ur Leukocyte Esterase NEGATIVE Urine RBC 0-5 Urine WBC 4-5 Ur Squamous Epith Cells MANY Squamous H Urine Bacteria Moderate H Ur Microscopic Review INDICATED Urine Culture Comments NOT INDICATED PD MEDICAL DECISION MAKING - ED course Complexity details: reviewed old records, reviewed results, re-evaluated patient , d/w patient ED course: Patient is 82-year-old female who lives at home apparently she has history of alcohol abuse in remission. She is brought in for concern of her welfare as her house is extremely dirty and she was unkempt lying in the bed with feces. Here on examination she is awake and alert and ALT very disheveled and dirty does not appear to be acutely ill. Her neurologic, cardiac, and pulmonary exams are normal. She has some superficial excoriations of the lower extremities but nothing that looks obviously infected. Chest x-ray shows no acute disease, EKG normal sinus rhythm without any obvious QRS, WI, or QT prolongation there is no significant ST elevation depression or T-wave inversion. Blood work really is unremarkable other than a low potassium and magnesium both of which she has had before. Both of these were replenished in emergency department. At this time there is no obvious finding that requires medical admission for this patient. I think she needs a social work evaluation for placement. This is difficult because I cannot hold her although her house is in very poor condition and she clearly is not doing a good job of taking care of herself I am hoping that she stays overnight and gets social work evaluation in the morning. The patient is concerned about her 2 dogs her at home. The EMS who brought her in is agreeable to taking him short-term if need be if this keeps the patient in the hospital. Disposition: Pending social work evaluation Clinical impression: 1. Hypo-[place] anemia and hypokalemia 2. 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 Extremely poor living conditions at home without support network
[2017-03-15 17:17] LABS: ALBUMIN/GLOBULIN RATIO 0.4 (1.0-2.2); BILIRUBIN,TOTAL 0.9 mg/dL (0.2-1.0); CALCIUM 7.4 mg/dL (8.5-10.3); CREATININE 1.2 mg/dL (0.4-1.0); TOTAL PROTEIN 6.5 g/dL (6.7-8.2)
[2017-03-15 17:19] LABS: BASOPHILS % (AUTO) 0.9 %; EOSINOPHILS # (AUTO) 0.2 10^3/uL (0.0-0.7); EOSINOPHILS % (AUTO) 3.5 %; HCT - HEMATOCRIT 32.7 % (37.0-47.0); HGB - HEMOGLOBIN 10.4 g/dL (12.0-16.0); LYMPHOCYTES # (AUTO) 1.1 10^3/uL (1.5-3.5); LYMPHOCYTES % (AUTO) 23.4 %; MEAN CORPUSCULAR HEMOGLOBIN 24.9 pg (27.0-31.0); MEAN CORPUSCULAR HGB CONC 31.7 g/dL (32.0-36.0); MEAN CORPUSCULAR VOLUME 78.5 fL (81.0-99.0); MEAN PLATELET VOLUME 8.3 fL (7.9-10.8); MONOCYTES # (AUTO) 0.5 10^3/uL (0.0-1.0); MONOCYTES % (AUTO) 9.8 %; NEUTROPHILS # (AUTO) 2.9 10^3/uL (1.5-6.6); NEUTROPHILS % (AUTO) 62.4 %; RED BLOOD COUNT 4.17 10^6/uL (4.20-5.40); RED CELL DISTRIBUTION WIDTH 22.1 % (12.0-15.0); UNCORRECTED WHITE BLOOD COUNT 4.7 x10^3/uL; WHITE BLOOD COUNT 4.7 x10^3/uL (4.8-10.8)
[2017-03-15] MEDS ORDERED: POTASSIUM CHLORIDE 20 MEQ TABLET PO STA (17:26)
--- NOTE | 2017-03-15 17:35 | XRAY Preliminary Report ---
Exam: XR Chest 1 View IMPRESSION: 1. Mild prominence of the pulmonary interstitium, unchanged. 2. No acute pulmonary process. 3. Mild cardiac enlargement is stable. [facility] SITE ID: [id number]
[2017-03-15 17:38] LABS: BILIRUBIN,URINE NEGATIVE (NEGATIVE)
[2017-03-15 17:42] LABS: UA w/ MICROSCOPIC CHARGE YES
[2017-03-15] MEDS ORDERED: MAGNESIUM SULFATE 2 GRAM 50 ML IV STA (17:42)
[2017-03-15 17:49] LABS: UR CULTURE IF IND NOT INDICATED
[2017-03-15] MEDS ORDERED: POTASSIUM CHLORIDE 20 MEQ TABLET PO ONE (17:50)
[2017-03-15] MEDS ORDERED: MAGNESIUM SULFATE 2 GRAM 50 ML IV ONE (17:50)
--- NOTE | 2017-03-15 18:42 | XRAY Report ---
EXAM: CHEST RADIOGRAPHY EXAM DATE: 03/15/2017 05:07 PM. CLINICAL HISTORY: Weakness. COMPARISON: 08/08/2015. TECHNIQUE: 1 view. FINDINGS: Lungs/Pleura: No focal opacities evident. No pleural effusion. No pneumothorax. Mild prominence of th e pulmonary interstitium is similar to the previous study. Right upper lobe calcified granulomas are present. Mediastinum: Mild cardiac enlargement is unchanged. Other: None. IMPRESSION: 1. Mild prominence of the pulmonary interstitium, unchanged. 2. No acute pulmonary process. 3. Mild cardiac enlargement is stable. [facility] Referring Provider Line: [phone] SITE ID: [id number]
--- NOTE | 2017-03-15 19:29 | ED Physician Documentation ---
ED Addendum - Addendum Addendum: 03/15/17 19:27 I took over care from the prior ER MD. The patient states she does not want to stay in the hospital here to wait for social work. She states she wants to return to her home. We discussed with her that the medics felt her home condition was not healthy. The patient states she wants to be going home and is asking that she call her daughter who is going to come pick her up. At this point the patient is alert and cognizant and she can determine that she wants to be discharged. Discharge condition stable.
[2017-03-15] MEDS ORDERED: oxyCODONE 5 MG TABLET PO STA (21:38)
[2017-03-15] MEDS ORDERED: oxyCODONE 5 MG TABLET ONE (21:43)
[2017-03-16] MEDS ORDERED: POTASSIUM CHLORIDE 20 MEQ TABLET PO STA (07:38)
[2017-03-16] MEDS ORDERED: POTASSIUM CHLORIDE 20 MEQ TABLET PO ONE (08:01)
[2017-03-16 08:10] VITALS: BP 136/53
[2017-03-16] MEDS ORDERED: oxyCOD/ACETAMIN 5 MG/325 MG TABLET PO STA (11:28)
[2017-03-16] MEDS ORDERED: oxyCOD/ACETAMIN 5 MG/325 MG TABLET PO ONE (12:07)
== END 2017-03-16 19:18 | disposition home or self-care (01) ==
LOC: EDUNIT# → ED 16:11
DX: E83.42 Hypomagnesemia (principal); E87.6 Hypokalemia; F11.20 Opioid dependence, uncomplicated; I10 Essential (primary) hypertension; I25.10 Atherosclerotic heart disease of native coronary artery without angina pectoris; E11.9 Type 2 diabetes mellitus without complications; Z86.718 Personal history of other venous thrombosis and embolism
CPT/HCPCS: 36415; 71010; 80053; 81001; 82550; 83690; 83735; 84484; 85025; 93005; 96365; 99284; 99285; A9270; 81003; 87086; 96375

== ENCOUNTER 2017-03-18 19:00 | Outpatient (CLI) | payer MEDICARE | END 2017-03-18 19:01 | disposition EMS.NT | LOC: EMS 19:00 | PROVIDERS: ATTEND Surgery | DX: Z03.89 Encounter for observation for other suspected diseases and conditions ruled out (principal); W01.0XXA Fall on same level from slipping, tripping and stumbling without subsequent striking against object, initial encounter; Y92.003 Bedroom of unspecified non-institutional (private) residence as the place of occurrence of the external cause ==

== ENCOUNTER 2017-04-01 07:41 | Outpatient (CLI) | payer MEDICARE | END 2017-04-01 07:42 | disposition EMS.NT | LOC: EMS 07:41 | PROVIDERS: ATTEND Surgery | DX: Z03.89 Encounter for observation for other suspected diseases and conditions ruled out (principal); W05.0XXA Fall from non-moving wheelchair, initial encounter; Y92.003 Bedroom of unspecified non-institutional (private) residence as the place of occurrence of the external cause ==

== ENCOUNTER 2017-04-04 07:41 | Outpatient (CLI) | payer MEDICARE | END 2017-04-04 07:42 | disposition EMS.NT | LOC: EMS 07:41 | PROVIDERS: ATTEND Surgery | DX: Z03.89 Encounter for observation for other suspected diseases and conditions ruled out (principal); W06.XXXA Fall from bed, initial encounter; Y92.003 Bedroom of unspecified non-institutional (private) residence as the place of occurrence of the external cause ==

== ENCOUNTER 2017-04-08 12:39 | Outpatient (CLI) | payer MEDICARE | END 2017-04-08 12:40 | disposition EMS.NT | LOC: EMS 12:39 | PROVIDERS: ATTEND Surgery | DX: Z03.89 Encounter for observation for other suspected diseases and conditions ruled out (principal) ==

== ENCOUNTER 2017-04-29 23:21 | Outpatient (CLI) | payer MEDICARE | END 2017-04-29 23:22 | disposition EMS.NT | LOC: EMS 23:21 | PROVIDERS: ATTEND Surgery | DX: M54.9 Dorsalgia, unspecified (principal); M79.605 Pain in left leg; M79.604 Pain in right leg ==

== ENCOUNTER 2017-04-30 10:30 | Outpatient (CLI) | payer MEDICARE | END 2017-04-30 10:31 | disposition short-term general hospital (02) | LOC: EMS 10:30 | PROVIDERS: ATTEND Surgery | DX: M79.89 Other specified soft tissue disorders (principal); R20.0 Anesthesia of skin | CPT/HCPCS: A0425; A0429 ==

== ENCOUNTER 2017-05-13 16:47 | Emergency (ER) | payer MEDICARE ==
[2017-05-13 17:25] LABS: BASOPHILS % (AUTO) 0.4 %; EOSINOPHILS # (AUTO) 0.1 10^3/uL (0.0-0.7); EOSINOPHILS % (AUTO) 2.5 %; HGB - HEMOGLOBIN 9.9 g/dL (12.0-16.0); LYMPHOCYTES # (AUTO) 1.3 10^3/uL (1.5-3.5); LYMPHOCYTES % (AUTO) 26.3 %; MEAN CORPUSCULAR VOLUME 78.2 fL (81.0-99.0); MEAN PLATELET VOLUME 8.4 fL (7.9-10.8); MONOCYTES # (AUTO) 0.8 10^3/uL (0.0-1.0); MONOCYTES % (AUTO) 15.3 %; NEUTROPHILS # (AUTO) 2.8 10^3/uL (1.5-6.6); NEUTROPHILS % (AUTO) 55.5 %; RED BLOOD COUNT 3.96 10^6/uL (4.20-5.40); RED CELL DISTRIBUTION WIDTH 20.7 % (12.0-15.0)
[2017-05-13 17:36] LABS: ALBUMIN/GLOBULIN RATIO 0.3 (1.0-2.2); BILIRUBIN,TOTAL 2.4 mg/dL (0.2-1.0); CALCIUM 7.2 mg/dL (8.5-10.3); CREATININE 1.4 mg/dL (0.4-1.0); POTASSIUM 2.8 mmol/L (3.5-5.0); TOTAL PROTEIN 6.9 g/dL (6.7-8.2)
[2017-05-13] MEDS ORDERED: POTASSIUM BICARB 25 MEQ TABLET PO STA (17:40)
[2017-05-13 17:43] LABS: PLATELET ESTIMATE, MANUAL DECREASED (<130,000) (NORMAL); PLATELET MORPHOLOGY NORMAL APPEARANCE (NORMAL)
--- NOTE | 2017-05-13 17:46 | ED Physician Documentation ---
History of Present Illness - Stated complaint Stated Complaint: FEM - Chief complaint Chief Complaint: General - History obtained from History obtained from: Patient, EMS - History of Present Illness Timing: How many days ago (2) Pain level max: 1 Pain level now: 1 Improved by: nothing Worsened by: nothing - Additonal information Additional information: Patient is an 82-year-old female who presents to the emergency department complaining of urinary incontinence and dysuria for the past 2 days. Thinks she may have a UTI. No abd pain. No vomiting. no diarrhea. No back pain. No headache. Review of Systems Ten Systems: 10 systems reviewed and negative Constitutional: denies: Fever, Chills Ears: denies: Ear pain Nose: denies: Rhinorrhea / runny nose, Congestion Throat: denies: Sore throat Cardiac: denies: Chest pain / pressure Respiratory: denies: Cough, Wheezing GI: denies: Abdominal Pain, Nausea, Vomiting, Diarrhea : reports: Dysuria, Frequency, Incontinent Skin: denies: Rash Musculoskeletal: denies: Neck pain, Back pain Neurologic: denies: Focal weakness, Numbness, Headache PD PAST MEDICAL HISTORY - Past Medical History Cardiovascular: Hypertension, Coronary artery disease, Deep vein thrombosis Respiratory: None Neuro: Dementia Endocrine/Autoimmune: Type 2 diabetes GI: Cirrhosis 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 : Renal insuffiency HEENT: Other Psych: Depression Musculoskeletal: Osteoarthritis, Gout, Chronic back pain Derm: None - Past Surgical History Past Surgical History: Yes General: Appendectomy HEENT: Cataracts - Present Medications Home Medications: Ambulatory Orders Medication Instructions Recorded Confirmed Escitalopram [Lexapro] 10 mg PO DAILY 06/30/15 05/13/17 Melatonin 3 mg PO QPM PRN 06/30/15 05/13/17 Metoprolol Tartrate 12.5 mg PO BID 08/09/15 05/13/17 Furosemide [Lasix] 20 mg PO DAILY #0 05/12/16 05/13/17 oxyCODONE [Roxicodone] 5 mg PO Q4HR PRN #0 tablet 02/08/17 05/13/17 oxyCODONE/ACET 5/325 [Percocet 5 1 each PO Q4-6H PRN #16 tablet 03/16/17 mg/325 mg] Cephalexin [Keflex] 500 mg PO Q6H #28 capsule 05/13/17 Ursodiol 300 mg PO BID #20 capsule 05/13/17 - Allergies Allergies/Adverse Reactions: Allergies Allergy/AdvReac Type Severity Reaction Status Date / Time No Known Drug Allergies Allergy Verified 03/15/17 17:57 - Social History Does the pt smoke?: No Smoking Status: Unknown if ever smoked Does the pt drink ETOH?: Yes Does the pt have substance abuse?: Yes - Immunizations Immunizations are current?: Yes Immunizations: Other immun not current - POLST Patient has POLST: No PD ED PE NORMAL - Vitals Vital signs reviewed: Yes - General General: Alert and oriented X 3, No acute distress, Well developed/nourished - HEENT HEENT: PERRL, Moist mucous membranes - Neck Neck: Supple, no meningeal sign - Cardiac Cardiac: RRR, Strong equal pulses - Respiratory Respiratory: No respiratory distress, Clear bilaterally - Abdomen Abdomen: Soft, Non tender, Non distended - Derm Derm: Warm and dry - Extremities Extremities: No calf tenderness / cord, Other (3 small open ulcerations to the anterior L lower leg. no cellulitis. ) - Neuro Neuro: Alert and oriented X 3 - Psych Psych: Normal mood, Normal affect Results - Vitals Vitals: Vital Signs - 24 hr 05/13/17 05/13/17 05/13/17 16:51 19:17 19:55 Temperature 36.4 C L 36.7 C Heart Rate 71 68 Respiratory 16 18 18 Rate Blood Pressure 133/63 H 144/62 H 151/62 H O2 Saturation 98 96 97 05/13/17 20:06 Temperature Heart Rate 73 Respiratory Rate Blood Pressure O2 Saturation Oxygen O2 Source [With Activity] Room air O2 Source [Without Activity] Room air O2 Source Room air - Labs Labs: Laboratory Tests 05/13/17 05/13/17 05/13/17 17:17 17:17 18:45 WBC 5.0 RBC 3.96 L Hgb 9.9 L Hct 31.0 L MCV 78.2 L MCH 25.0 L MCHC 32.0 RDW 20.7 H Plt Count 83 L MPV 8.4 Neut # 2.8 Lymph # 1.3 L [place] # 0.8 Eos # 0.1 Baso # 0.0 Absolute Nucleated RBC 0.00 Nucleated RBC % 0.0 Manual Slide Review Indicated Platelet Estimate DECREASED (<130,000) Platelet Morphology NORMAL APPEARANCE RBC Morph Micro Appear 2+ POLYCHROMASIA Sodium 138 Potassium 2.8 L Chloride 102 Carbon Dioxide 27 Anion Gap 9.0 BUN 19 Creatinine 1.4 H Estimated GFR (MDRD) 36 L Glucose 123 H Calcium 7.2 L Total Bilirubin 2.4 H AST 91 H ALT 77 H Alkaline Phosphatase 190 H Total Protein 6.9 Albumin 1.6 L Globulin 5.3 H Albumin/Globulin Ratio 0.3 L Lipase 46 Urine Color DARK YELLOW Urine Clarity SL. CLOUDY Urine pH 6.0 Ur Specific [place] 1.015 Urine Protein NEGATIVE Urine Glucose (UA) NEGATIVE Urine Ketones NEGATIVE Urine Occult Blood NEGATIVE Urine Nitrite POSITIVE H Urine Bilirubin SMALL H Urine Urobilinogen 0.2 (NORMAL) Ur Leukocyte Esterase TRACE H Urine RBC 0-5 Urine WBC 6-10 H Ur Squamous Epith Cells FEW Squamous Urine Bacteria Moderate H Ur Microscopic Review INDICATED Urine Culture Comments INDICATED PD MEDICAL DECISION MAKING - ED course Complexity details: reviewed results, re-evaluated patient, considered differential, d/w patient, d/w family, d/w systems development consultant (Branden (gen surg) recommends actigall and follow up.) ED course: Patient is an 82-year-old female who presents to the emergency department with complaints of urinary incontinence, appears to have UTI and will place on antibiotics for this. She is found to have elevated LFTs on testing, therefore a ultrasound was performed which shows a gallstone lodged in the gallbladder neck. No evidence of cholecystitis. Discussed the case with Dr. Otero, general surgery on-call who recommends Actigall and follow-up with her doctor. She will return if she develops symptoms such as fever, abdominal pain or vomiting. She is well-appearing, nontoxic. The wounds on the leg are superficial and were cleansed and bandaged with bacitracin. Patient counseled regarding signs and symptoms for which I believe and urgent re-evaluation would be necessary. Patient with good understanding of and agreement to plan and is comfortable going home at this time This document was made in part using voice recognition software. While efforts are made to proofread this document, sound alike and grammatical errors may occur. Departure - Departure Disposition: 01 Home, Self Care Clinical Impression: Gallstones UTI (urinary tract infection) Qualifiers: Urinary tract infection type: site unspecified Hematuria presence: without hematuria Qualified Code(s): N39.0 - Urinary tract infection, site not specified Leg ulcer, left Qualifiers: Non-pressure ulcer stage: limited to breakdown of skin Qualified Code(s): L97.921 - Non-pressure chronic ulcer of unspecified part of left lower leg limited to breakdown of skin Condition: Good Instructions: ED Gallstone W Biliary Colic, ED UTI Cystitis Female Follow-Up: Cecily Morejon ARNP [Primary Care Provider] - Within 3 Days Prescriptions: Cephalexin [Keflex] 500 mg PO Q6H #28 capsule Ursodiol 300 mg PO BID #20 capsule Comments: Take all antibiotics until gone. Return if you worsen. You do have gallstones and the actigall may help dissolve the stones. Return if you develop abdominal pain, vomiting, or fevers. Discharge Date/Time: 05/13/17 20:06
[2017-05-13] MEDS ORDERED: POTASSIUM BICARB 25 MEQ TABLET PO ONE (18:06)
[2017-05-13] MEDS ORDERED: oxyCODONE 5 MG TABLET PO STA (18:56)
[2017-05-13 19:00] LABS: BILIRUBIN,URINE SMALL (NEGATIVE)
[2017-05-13 19:01] LABS: UA w/ MICROSCOPIC CHARGE YES
[2017-05-13] MEDS ORDERED: oxyCODONE 5 MG TABLET ONE (19:03)
[2017-05-13] MEDS ORDERED: cefTRIAXone 1 GM VIAL IM STA (19:06)
[2017-05-13 19:09] LABS: UR CULTURE IF IND INDICATED
--- NOTE | 2017-05-13 19:10 | Ultrasound Preliminary Report ---
Exam: US ABDOMEN LIMITED IMPRESSION: 1. Cirrhotic liver. No mass is noted. Possible intrahepatic bile duct dilation. 2. Normal caliber common bile duct. Gallstone is noted in the gallbladder neck. Gallbladder wall thic kening is noted without a positive sonographic Arredondo sign. Gallbladder wall thickening may be second kesha to incomplete distention and the cause of the underlying liver dysfunction. [facility] SITE ID: [id number]
[2017-05-13] MEDS ORDERED: LIDOCAINE 1% 2 ML VIAL ONE (19:15)
[2017-05-13] MEDS ORDERED: cefTRIAXone 1 GM VIAL ONE (19:16)
--- NOTE | 2017-05-13 19:49 | Ultrasound Report ---
EXAM: ABDOMEN ULTRASOUND LIMITED, RUQ EXAM DATE: 05/13/2017 06:45 PM. CLINICAL HISTORY: Elevated LFTs and bilirubin. COMPARISON: 02/01/2015 and 01/31/2015. TECHNIQUE: Real-time scanning was performed with static images obtained. FINDINGS: Liver: Heterogeneous liver with nodular capsule. No focal mass. Possible mild intrahepatic bile duct dilation. Right liver measures 14.9 cm. Main portal vein flow: Hepatopetal. Gallbladder: There is a stone in the gallbladder neck. Negative sonographic Arredondo's sign. Gallbladde r wall thickening is noted in the incompletely distended gallbladder. No pericholecystic fluid. Biliary System: CBD measures 6.8 mm. No intrahepatic or extrahepatic ductal dilatation. Other: Small amount of fluid is present in the right upper quadrant. Right kidney measures 10.3 cm. 1 .6 cm in the mid lateral right kidney. No hydronephrosis. IMPRESSION: 1. Cirrhotic liver. No mass is noted. Possible intrahepatic bile duct dilation. 2. Normal caliber common bile duct. Gallstone is noted in the gallbladder neck. Gallbladder wall thic kening is noted without a positive sonographic Arredondo's sign. Gallbladder wall thickening may be seco ndary to incomplete distention and the cause of the underlying liver dysfunction. [facility] Referring Provider Line: [phone] SITE ID: [id number]
[2017-05-13 19:56] VITALS: BP 151/62
== END 2017-05-13 20:06 | disposition home or self-care (01) ==
LOC: EDUNIT# → ED 16:47
DX: K80.80 Other cholelithiasis without obstruction (principal); N39.0 Urinary tract infection, site not specified; E11.622 Type 2 diabetes mellitus with other skin ulcer; L97.929 Non-pressure chronic ulcer of unspecified part of left lower leg with unspecified severity; L97.921 Non-pressure chronic ulcer of unspecified part of left lower leg limited to breakdown of skin; I10 Essential (primary) hypertension; I25.10 Atherosclerotic heart disease of native coronary artery without angina pectoris; F03.90 Unspecified dementia, unspecified severity, without behavioral disturbance, psychotic disturbance, mood disturbance, and anxiety; Z86.718 Personal history of other venous thrombosis and embolism
CPT/HCPCS: 36415; 51701; 76705; 80053; 81001; 83690; 85025; 87077; 87086; 87181; 96372; 99283; A9270; 81003

== ENCOUNTER 2017-05-23 09:53 | Outpatient (CLI) | payer MEDICARE | END 2017-05-23 09:54 | disposition critical access hospital (66) | LOC: EMS 09:53 | PROVIDERS: ATTEND Surgery | DX: M54.5 Low back pain (principal); W06.XXXA Fall from bed, initial encounter; Y92.003 Bedroom of unspecified non-institutional (private) residence as the place of occurrence of the external cause | CPT/HCPCS: A0425; A0429 ==

== ENCOUNTER 2017-05-23 10:18 | Emergency (ER) | payer MEDICARE ==
[2017-05-23 11:46] LABS: BILIRUBIN,URINE NEGATIVE (NEGATIVE)
[2017-05-23 11:54] LABS: UA CHARGE (STRIP ONLY) YES; UR CULTURE IF IND NOT INDICATED
[2017-05-23 12:24] LABS: BASOPHILS % (AUTO) 0.7 %; EOSINOPHILS # (AUTO) 0.2 10^3/uL (0.0-0.7); EOSINOPHILS % (AUTO) 3.3 %; HCT - HEMATOCRIT 31.7 % (37.0-47.0); HGB - HEMOGLOBIN 10.3 g/dL (12.0-16.0); LYMPHOCYTES # (AUTO) 1.1 10^3/uL (1.5-3.5); LYMPHOCYTES % (AUTO) 22.3 %; MEAN CORPUSCULAR HEMOGLOBIN 25.6 pg (27.0-31.0); MEAN CORPUSCULAR HGB CONC 32.4 g/dL (32.0-36.0); MEAN PLATELET VOLUME 8.2 fL (7.9-10.8); MONOCYTES # (AUTO) 0.5 10^3/uL (0.0-1.0); MONOCYTES % (AUTO) 10.1 %; NEUTROPHILS # (AUTO) 3.2 10^3/uL (1.5-6.6); NEUTROPHILS % (AUTO) 63.6 %; RED BLOOD COUNT 4.02 10^6/uL (4.20-5.40)
[2017-05-23 12:25] LABS: RED CELL DISTRIBUTION WIDTH 24.9 % (12.0-15.0)
[2017-05-23 12:31] LABS: ALBUMIN/GLOBULIN RATIO 0.3 (1.0-2.2); BILIRUBIN,TOTAL 1.5 mg/dL (0.2-1.0); CALCIUM 7.4 mg/dL (8.5-10.3); CREATININE 1.6 mg/dL (0.4-1.0); POTASSIUM 2.9 mmol/L (3.5-5.0); TOTAL PROTEIN 7.1 g/dL (6.7-8.2)
[2017-05-23 12:45] LABS: PLATELET ESTIMATE, MANUAL DECREASED (<130,000) (NORMAL); PLATELET MORPHOLOGY NORMAL APPEARANCE (NORMAL); WBC MORPHOLOGY (MULTIPLE) 1+ VARIANT LYMPHS (NORMAL)
[2017-05-23] MEDS ORDERED: POTASSIUM BICARB 25 MEQ TABLET PO STA (12:46)
[2017-05-23] MEDS ORDERED: POTASSIUM BICARB 25 MEQ TABLET PO ONE (13:06)
[2017-05-23] MEDS ORDERED: HYDROcod/ACETAM 5/325 MG TABLET PO STA (13:17)
[2017-05-23] MEDS ORDERED: HYDROcod/ACETAM 5/325 MG TABLET ONE (13:23)
--- NOTE | 2017-05-23 13:36 | ED Physician Documentation ---
History of Present Illness - Stated complaint Stated Complaint: GLF - Chief complaint Chief Complaint: Back Pain - History obtained from History obtained from: Patient - History of Present Illness Timing: How many days ago (3 or 4) - Additonal information Additional information: The patient is an 82-year-old female who arrives via ambulance for evaluation of low back pain after a fall that occurred 3 or 4 days ago. She fell backwards against her bed, when she was emotionally upset because of an argument with her daughter with whom she lives. She reports having low back pain since the fall. She denies hitting her head or losing consciousness. She denies chest pain, shortness of breath, nausea, vomiting, or dysuria. She has been incontinent of urine. She has not been getting along with her daughter who has been trying to get her into an assisted living facility. The argument occurred after her daughter took her dogs away and took them to [facility], as part of a transition toward placement in assisted living. Review of Systems Constitutional: denies: Fever Ears: denies: Tinnitus/ringing Nose: denies: Congestion Throat: denies: Sore throat Cardiac: denies: Chest pain / pressure, Palpitations Respiratory: denies: Dyspnea, Cough GI: denies: Abdominal Pain, Nausea, Vomiting : reports: Incontinent. denies: Dysuria Musculoskeletal: reports: Back pain, Extremity swelling (chronically). denies: Neck pain Neurologic: reports: Generalized weakness. 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 : Renal insuffiency HEENT: Other Psych: Depression Musculoskeletal: Osteoarthritis, Gout, Chronic back pain Derm: None - Past Surgical History Past Surgical History: Yes General: Appendectomy HEENT: Cataracts - Present Medications Home Medications: Ambulatory Orders Medication Instructions Recorded Confirmed Escitalopram [Lexapro] 10 mg PO DAILY 06/30/15 05/13/17 Melatonin 3 mg PO QPM PRN 06/30/15 05/13/17 Metoprolol Tartrate 12.5 mg PO BID 08/09/15 05/13/17 Furosemide [Lasix] 20 mg PO DAILY #0 05/12/16 05/13/17 oxyCODONE [Roxicodone] 5 mg PO Q4HR PRN #0 tablet 02/08/17 05/13/17 oxyCODONE/ACET 5/325 [Percocet 5 1 each PO Q4-6H PRN #16 tablet 03/16/17 mg/325 mg] Cephalexin [Keflex] 500 mg PO Q6H #28 capsule 05/13/17 Ursodiol 300 mg PO BID #20 capsule 05/13/17 HYDROcod/ACETAM 5/325 [Vicodin 1 - 2 ea PO Q6H PRN #20 tablet 05/23/17 5/325] - Allergies Allergies/Adverse Reactions: Allergies Allergy/AdvReac Type Severity Reaction Status Date / Time No Known Drug Allergies Allergy Verified 03/15/17 17:57 - Social History Does the pt smoke?: No Smoking Status: Never smoker Does the pt drink ETOH?: Yes Does the pt have substance abuse?: Yes - Immunizations Immunizations are current?: Yes Immunizations: Other immun not current - POLST Patient has POLST: No PD ED PE NORMAL - Vitals Vital signs reviewed: Yes (borderline hypertension) - General General: Other (Alert, oriented 2, tearful when talking about her relationship with her daughter.) - HEENT HEENT: Atraumatic, EOMI, Pharynx benign, Other (Partially edentulous, including upper incisors.) - Neck Neck: Supple, no meningeal sign, No adenopathy, No JVD - Cardiac Cardiac: RRR, Other (2/6 systolic murmur.) - Respiratory Respiratory: No respiratory distress, Clear bilaterally - Abdomen Abdomen: Soft, Non tender - Back Back: No CVA TTP, Other (Mild tenderness to palpation across lower back. No focal tenderness to palpation along the spinous processes.) - Derm Derm: No rash - Extremities Extremities: No calf tenderness / cord, Other (Lymphedema present in both lower extremities, without evidence of cellulitis, and no calf tenderness.) - Neuro Neuro: No motor deficit, No sensory deficit, Other (Alert, oriented 2, not certain of the date, but fully aware of surroundings and recent events.) Eye Opening: Spontaneous Motor: Obeys Commands Verbal: Oriented GCS Score: 15 Results - Vitals Vitals: Oxygen O2 Source [] Room air O2 Source [] Room air O2 Source Room air - Labs Labs: Laboratory Tests 05/23/17 05/23/17 05/23/17 10:40 10:54 10:54 WBC 5.0 RBC 4.02 L Hgb 10.3 L Hct 31.7 L MCV 79.0 L MCH 25.6 L MCHC 32.4 RDW 24.9 H Plt Count 77 L MPV 8.2 Neut # 3.2 Lymph # 1.1 L [place] # 0.5 Eos # 0.2 Baso # 0.0 Absolute Nucleated RBC 0.00 Nucleated RBC % 0.0 Manual Slide Review Indicated WBC Morphology 1+ VARIANT LYMPHS Platelet Estimate DECREASED (<130,000) Platelet Morphology NORMAL APPEARANCE RBC Morph Micro Appear RARE TARGET CELLS Sodium 136 Potassium 2.9 L Chloride 106 Carbon Dioxide 24 Anion Gap 6.0 BUN 20 Creatinine 1.6 H Estimated GFR (MDRD) 31 L Glucose 140 H Calcium 7.4 L Total Bilirubin 1.5 H AST 78 H ALT 32 Alkaline Phosphatase 178 H Total Protein 7.1 Albumin 1.7 L Globulin 5.4 H Albumin/Globulin Ratio 0.3 L Lipase 38 Urine Color YELLOW Urine Clarity CLEAR Urine pH 6.0 Ur Specific [place] 1.010 Urine Protein NEGATIVE Urine Glucose (UA) NEGATIVE Urine Ketones NEGATIVE Urine Occult Blood NEGATIVE Urine Nitrite NEGATIVE Urine Bilirubin NEGATIVE Urine Urobilinogen 0.2 (NORMAL) Ur Leukocyte Esterase NEGATIVE Ur Microscopic Review NOT INDICATED Urine Culture Comments NOT INDICATED - Rads (name of study) LS spine Radiology: Prelim report reviewed, EMP read contemporaneously, See rad report ( 1. No acute fracture demonstrated. 2. Technically difficult exam due to diffuse osteopenia. 3. Old mild compression fractures at T11, L2, and L3 levels. 4. Old moderate T12 compression fracture. 5. Multilevel degenerative changes.) PD MEDICAL DECISION MAKING - ED course Complexity details: reviewed results, re-evaluated patient, considered differential, d/w patient, d/w family ED course: The patient's presentation is significant for low back pain after falling 3 or 4 days ago. The fall was low-impact, and x-rays of the lumbosacral spine reveal no evidence of acute bony abnormality. She demonstrates the ability to ambulate to and from the restroom. CBC reveals anemia, with a hemoglobin of 10.6. Chemistry panel reveals hypokalemia, with a potassium of 2.9. Urinalysis is negative. Treatment in the emergency department included administration of potassium 25 mEq orally. Vicodin one tablet was administered orally. The patient's workup and condition was discussed with her daughter, with whom the patient is being discharged. I discussed with them the importance of outpatient follow-up, as well as potentially worrisome signs or symptoms that should prompt reevaluation in the emergency department. Departure - Departure Disposition: 01 Home, Self Care Clinical Impression: Hypokalemia Fall Qualifiers: Encounter type: initial encounter Qualified Code(s): W19.XXXA - Unspecified fall, initial encounter Low back pain Qualifiers: Chronicity: acute Back pain laterality: bilateral Sciatica presence: without sciatica Qualified Code(s): M54.5 - Low back pain Condition: Stable Instructions: ED Low Back Pain Injury Follow-Up: Cecily Morejon ARNP [Primary Care Provider] - Prescriptions: HYDROcod/ACETAM 5/325 [Vicodin 5/325] 1 - 2 ea PO Q6H PRN #20 tablet PRN Reason: Pain Comments: Apply ice pack to your lower back intermittently for the next 2 days. You can use ibuprofen, up to 600 mg 3 times daily for its anti-inflammatory effect. You can use Vicodin as prescribed if needed for pain. Follow up with your primary physician within 1-2 weeks. Call to schedule appointment. Return to the emergency department if you develop increasing pain, fever with shaking chills, or otherwise worsening symptoms. Discharge Date/Time: 05/23/17 17:24
--- NOTE | 2017-05-23 13:46 | XRAY Preliminary Report ---
Exam: XR LUMBAR SPINE 2 VIEW IMPRESSION: 1. No acute fracture demonstrated. 2. Technically difficult exam due to diffuse osteopenia. 3. Old mild compression fractures at T11, L2 and L3 levels. 4. Old moderate T12 compression fracture. 5. Multilevel degenerative changes. [facility] SITE ID: [id number]
--- NOTE | 2017-05-23 13:48 | XRAY Report ---
EXAM: LUMBOSACRAL SPINE RADIOGRAPHY EXAM DATE: 05/23/2017 12:39 PM. CLINICAL HISTORY: Low back pain after falling. COMPARISONS: Correlation with abdominal pelvic CT 01/31/2015. TECHNIQUE: 3 views. Portable exam. FINDINGS: Alignment: Thoracolumbar kyphosis. No significant scoliosis. Bones: Five [id number] lumbar vertebral bodies are present. Diffuse osteopenia limits evaluation. There are numerous old compression fractures. These are mild at L2 and L3 levels. Moderate old T12 co mpression fracture. Mild old T11 compression fracture. Disks: Relatively mild diffuse loss of disk space height. Facets: Hypertrophic changes at L4-L5 and L5-S1 levels. Sacroiliac Joints: Unremarkable. Soft Tissues: Extensive atherosclerotic calcifications of the abdominal aorta and iliac arteries. Michele ateral hip joint space narrowing. IMPRESSION: 1. No acute fracture demonstrated. 2. Technically difficult exam due to diffuse osteopenia. 3. Old mild compression fractures at T11, L2 and L3 levels. 4. Old moderate T12 compression fracture. 5. Multilevel degenerative changes. [facility] Referring Provider Line: [phone] SITE ID: [id number]
[2017-05-23 16:09] VITALS: BP 123/51
== END 2017-05-23 17:24 | disposition home or self-care (01) ==
LOC: EDUNIT# → ED 10:18
DX: E87.6 Hypokalemia (principal); M54.5 Low back pain; I10 Essential (primary) hypertension; I25.10 Atherosclerotic heart disease of native coronary artery without angina pectoris; E11.9 Type 2 diabetes mellitus without complications; Z86.718 Personal history of other venous thrombosis and embolism
CPT/HCPCS: 36415; 72100; 80053; 81003; 83690; 85025; 99284; A9270; 81001; 87086

== ENCOUNTER 2017-05-26 21:36 | Outpatient (CLI) | payer MEDICARE | END 2017-05-26 21:37 | disposition EMS.NT | LOC: EMS 21:36 | PROVIDERS: ATTEND Surgery | DX: R45.89 Other symptoms and signs involving emotional state (principal) ==

== ENCOUNTER 2017-05-27 09:12 | Outpatient (CLI) | payer MEDICARE | END 2017-05-27 09:13 | disposition EMS.NT | LOC: EMS 09:12 | PROVIDERS: ATTEND Surgery | DX: Z74.2 Need for assistance at home and no other household member able to render care (principal) ==

== ENCOUNTER 2017-05-28 09:29 | Outpatient (CLI) | payer MEDICARE | END 2017-05-28 09:30 | disposition critical access hospital (66) | LOC: EMS 09:29 | PROVIDERS: ATTEND Surgery | DX: Z74.2 Need for assistance at home and no other household member able to render care (principal) | CPT/HCPCS: A0425; A0429 ==

== ENCOUNTER 2017-05-28 09:55 | Emergency (ER) | payer MEDICARE ==
[2017-05-28 12:35] LABS: BASOPHILS # (AUTO) 0.1 10^3/uL (0.0-0.1); BASOPHILS % (AUTO) 1.3 %; EOSINOPHILS # (AUTO) 0.1 10^3/uL (0.0-0.7); EOSINOPHILS % (AUTO) 1.1 %; HCT - HEMATOCRIT 29.9 % (37.0-47.0); HGB - HEMOGLOBIN 9.9 g/dL (12.0-16.0); LYMPHOCYTES # (AUTO) 1.2 10^3/uL (1.5-3.5); LYMPHOCYTES % (AUTO) 18.4 %; MEAN CORPUSCULAR HEMOGLOBIN 25.5 pg (27.0-31.0); MEAN CORPUSCULAR VOLUME 77.5 fL (81.0-99.0); MEAN PLATELET VOLUME 7.2 fL (7.9-10.8); MONOCYTES # (AUTO) 0.5 10^3/uL (0.0-1.0); MONOCYTES % (AUTO) 7.1 %; NEUTROPHILS # (AUTO) 4.7 10^3/uL (1.5-6.6); NEUTROPHILS % (AUTO) 72.1 %; RED BLOOD COUNT 3.86 10^6/uL (4.20-5.40); UNCORRECTED WHITE BLOOD COUNT 6.5 x10^3/uL; WHITE BLOOD COUNT 6.5 x10^3/uL (4.8-10.8)
[2017-05-28 12:36] LABS: RED CELL DISTRIBUTION WIDTH 24.9 % (12.0-15.0)
--- NOTE | 2017-05-28 12:43 | ED Physician Documentation ---
History of Present Illness - Stated complaint Stated Complaint: BACK PX - Chief complaint Chief Complaint: Back Pain - Additonal information Additional information: hx from pt 82 f states she called EMS because she had no bed to sleep in per NN and EMS pt and her house were covered in feces per SW this situation has been repotted to APS numerous times pt denies fever cough NVD urinary sx she dies [employer] [facility] AP back pain she has chronic venous stasis with open sores to her legs per nurse triage pt had back pain but she denies any pain when I ask her - also seen and evaluated for back pain after a fall just a few days ago Review of Systems Constitutional: denies: Fever, Chills Throat: denies: Sore throat Cardiac: denies: Chest pain / pressure Respiratory: denies: Dyspnea, Cough GI: denies: Abdominal Pain, Nausea, Vomiting, Diarrhea : denies: Dysuria Skin: reports: Rash Neurologic: reports: Generalized weakness Endocrine: denies: Easy bruising / bleeding Immunocompromised: denies: Immunocompromised PD PAST MEDICAL HISTORY - Past Medical History Cardiovascular: Hypertension, Coronary artery disease, Deep vein thrombosis Respiratory: None Neuro: Dementia Endocrine/Autoimmune: Type 2 diabetes GI: Cirrhosis ERP TECHNICAL LEAD: None : Renal insuffiency HEENT: Other Psych: Depression Musculoskeletal: Osteoarthritis, Gout, Chronic back pain Derm: None - Past Surgical History Past Surgical History: Yes General: Appendectomy HEENT: Cataracts - Present Medications Home Medications: Ambulatory Orders Medication Instructions Recorded Confirmed Escitalopram [Lexapro] 10 mg PO DAILY 06/30/15 05/28/17 Melatonin 3 mg PO QPM PRN 06/30/15 05/28/17 Metoprolol Tartrate 12.5 mg PO BID 08/09/15 05/28/17 Furosemide [Lasix] 20 mg PO DAILY #0 05/12/16 05/28/17 oxyCODONE [Roxicodone] 5 mg PO Q4HR PRN #0 tablet 02/08/17 05/28/17 oxyCODONE/ACET 5/325 [Percocet 5 1 each PO Q4-6H PRN #16 tablet 03/16/17 mg/325 mg] Ursodiol 300 mg PO BID #20 capsule 05/13/17 05/28/17 HYDROcod/ACETAM 5/325 [Vicodin 1 - 2 ea PO Q6H PRN #20 tablet 05/23/17 5/325] - Allergies Allergies/Adverse Reactions: Allergies Allergy/AdvReac Type Severity Reaction Status Date / Time No Known Drug Allergies Allergy Verified 05/28/17 11:14 - Social History Does the pt smoke?: No Smoking Status: Never smoker Does the pt drink ETOH?: Yes Does the pt have substance abuse?: Yes - Immunizations Immunizations are current?: Yes Immunizations: Other immun not current - POLST Patient has POLST: No PD ED PE NORMAL - Vitals Vital signs reviewed: Yes - General General: Alert and oriented X 3 - HEENT HEENT: Atraumatic, PERRL - Cardiac Cardiac: RRR. No: No murmur (+ murmur, not new per pt) - Respiratory Respiratory: Clear bilaterally - Abdomen Abdomen: Soft, Non tender - Derm Derm: Other (grade 1 break down to sacrum and buttocks, roberta LE to knees with thickened red indurated skin and shallow open ulcers, + cap refill, motor and sensation) Results - Vitals Vitals: Vital Signs - 24 hr 05/29/17 05/29/17 05/29/17 06:04 06:54 07:42 Temperature Heart Rate 89 90 94 Respiratory 16 16 20 Rate Blood Pressure 138/60 H 134/59 H 96/61 O2 Saturation 97 95 97 05/29/17 05/29/17 05/29/17 12:19 14:26 18:42 Temperature 36.8 C 36.8 C Heart Rate 89 86 88 Respiratory 18 16 18 Rate Blood Pressure 136/57 H 151/65 H 150/55 H O2 Saturation 97 96 98 05/29/17 21:59 Temperature Heart Rate 88 Respiratory 16 Rate Blood Pressure 152/99 H O2 Saturation 98 Oxygen O2 Source [With Activity] Room air O2 Source [Without Activity] Room air O2 Source Room air - Labs Labs: Laboratory Tests 05/28/17 05/28/17 05/28/17 12:31 12:31 15:00 WBC 6.5 RBC 3.86 L Hgb 9.9 L Hct 29.9 L MCV 77.5 L MCH 25.5 L MCHC 33.0 RDW 24.9 H Plt Count 92 L MPV 7.2 L Neut # 4.7 Lymph # 1.2 L [place] # 0.5 Eos # 0.1 Baso # 0.1 Absolute Nucleated RBC 0.00 Nucleated RBC % 0.0 Sodium 139 Potassium 3.0 L Chloride 104 Carbon Dioxide 24 Anion Gap 11.0 BUN 26 H Creatinine 1.5 H Estimated GFR (MDRD) 33 L Glucose 107 H Calcium 7.7 L Urine Color YELLOW Urine Clarity CLEAR Urine pH 6.0 Ur Specific [place] 1.020 Urine Protein NEGATIVE Urine Glucose (UA) NEGATIVE Urine Ketones NEGATIVE Urine Occult Blood SMALL H Urine Nitrite NEGATIVE Urine Bilirubin NEGATIVE Urine Urobilinogen 0.2 (NORMAL) Ur Leukocyte Esterase NEGATIVE Urine RBC 0-5 Urine WBC 0-3 Ur Squamous Epith Cells MANY Squamous H Urine Bacteria None Seen Urine Casts 3-5 Hyaline Casts Ur Microscopic Review INDICATED Urine Culture Comments NOT INDICATED Urine Opiates Screen Ur Oxycodone Screen Urine Methadone Screen Ur Propoxyphene Screen Ur Barbiturates Screen Ur Tricyclics Screen Ur Phencyclidine Scrn Ur Amphetamine Screen U Methamphetamines Scrn U Benzodiazepines Scrn Urine Cocaine Screen U Cannabinoids Screen 05/28/17 05/29/17 15:00 12:38 WBC RBC Hgb Hct MCV MCH MCHC RDW Plt Count MPV Neut # Lymph # [place] # Eos # Baso # Absolute Nucleated RBC Nucleated RBC % Sodium Potassium 3.3 L Chloride Carbon Dioxide Anion Gap BUN Creatinine Estimated GFR (MDRD) Glucose Calcium Urine Color Urine Clarity Urine pH Ur Specific [place] Urine Protein Urine Glucose (UA) Urine Ketones Urine Occult Blood Urine Nitrite Urine Bilirubin Urine Urobilinogen Ur Leukocyte Esterase Urine RBC Urine WBC Ur Squamous Epith Cells Urine Bacteria Urine Casts Ur Microscopic Review Urine Culture Comments Urine Opiates Screen NEGATIVE Ur Oxycodone Screen POSITIVE H Urine Methadone Screen POSITIVE H Ur Propoxyphene Screen NEGATIVE Ur Barbiturates Screen NEGATIVE Ur Tricyclics Screen NEGATIVE Ur Phencyclidine Scrn NEGATIVE Ur Amphetamine Screen NEGATIVE U Methamphetamines Scrn NEGATIVE U Benzodiazepines Scrn POSITIVE H Urine Cocaine Screen NEGATIVE U Cannabinoids Screen NEGATIVE PD MEDICAL DECISION MAKING - ED course ED course: elderly pt with dementia by EMR who is unable to complete her own ADLS who has now lost in home care services 2/2 squalor of home and CHRISSY 2/2 lack of completing the correct DSHS documentation who has failed attempt to stay at home and has had near daily EMS calls (May 2306 26 and ) and was found covered in feces SW stating pt cannot be placed 2/2 no DSHS coverage simply cannot dc pt to unsafe unsanitary home when she is unable to care for herself and now has lost all in home services prior APS perors filed but no apparent action taken thus far (see notes 03/15) , today and new APS case opened but no action taken so far no acute injury or illness found on hx exam labs - leg edema not new, anemia not new, thrombocytopenia not new, renal insuff and hypokalemia not new so pt will board pending satisfactory and safe placement turned over to overnight houseperson Dr Vilchis at midnight reassumed care at noon 05/29 pt was documented to be hypotensive about 730 this AM - asked for BP to be rechecked - better now s intervention nurse requesting pt get her daily meds - since her BP and K are low do not think she is needing her lasix or metoprolol, pt is denying pain so dont think she needs narcotics, will order her lexapro and sub lovenox for DVT prophylaxis as there does not seem to be any imminent plan to dispo this pt from the ER see notes - per turnover from CLIFF Crandall when she left about 5 PM, pt may be able to get a different variation of CHRISSY in the house to help and if the daughter was to come to the hospital to pick the pt up and assume care of the pt she could be dced but not to dc in a taxi because last time no one was there to receive pt and she had to crawl across the floor daughter arrived and will take mother home - printed dc instructions and nurse spoke with daughter then daughter became upset and said she could just not deal with her mothers incontinence and can not take her home after all and then the daughter left so pt will continue to board in the ER - given her usual pain meds, her BP has been high all day after the single abn low this AM so ordered pts usual meds as confirmed by nursing turned over to overnight houseperson again Departure - Departure Disposition: Home, Self Care Clinical Impression: Weakness, Renal insufficiency, Hypokalemia, Thrombocytopenia Anemia Qualifiers: Anemia type: unspecified type Qualified Code(s): D64.9 - Anemia, unspecified Condition: Fair Instructions: Diet High Potassium Dc Follow-Up: Cecily Morejon ARNP [Primary Care Provider] - (Saturday for a recheck of potassium anemia and saftey concerns) Comments: The child protective services social worker Karley is working on your case to try and get DSHS approved and increased in home services You cannot live alone You need to stay in the care of your daughter If there are further questions you can call the social work department at the hospital between 9AM and 3 PM
[2017-05-28 12:44] LABS: CALCIUM 7.7 mg/dL (8.5-10.3); CREATININE 1.5 mg/dL (0.4-1.0)
[2017-05-28] MEDS ORDERED: POTASSIUM CHLORIDE 20 MEQ TABLET PO STA (14:24)
[2017-05-28] MEDS ORDERED: POTASSIUM BICARB 25 MEQ TABLET PO ONE (14:52)
[2017-05-28] MEDS ORDERED: POTASSIUM CHLORIDE 20 MEQ TABLET PO ONE (15:19)
[2017-05-28 16:42] LABS: BILIRUBIN,URINE NEGATIVE (NEGATIVE)
[2017-05-28 16:43] LABS: UA w/ MICROSCOPIC CHARGE YES
[2017-05-28 16:50] LABS: UR CULTURE IF IND NOT INDICATED; WBC,URINE 0-3 /HPF (0-5)
[2017-05-29] MEDS ORDERED: ENOXAPARIN 40 MG/0.4 ML SYRINGE SUBQ STA (12:22)
[2017-05-29] MEDS: ESCITALOPRAM 10 MG TABLET PO SCH (13:01)
[2017-05-29] MEDS ORDERED: ENOXAPARIN 40 MG/0.4 ML SYRINGE SUBQ ONE (13:04)
[2017-05-29] MEDS ORDERED: oxyCODONE 5 MG TABLET PO STA (16:54)
[2017-05-29] MEDS ORDERED: oxyCODONE 5 MG TABLET ONE (17:30)
[2017-05-29] MEDS ORDERED: URSODIOL 250 MG TABLET PO SCH (23:45)
[2017-05-30] MEDS ORDERED: ESCITALOPRAM 10 MG TABLET PO SCH (09:00)
[2017-05-30] MEDS ORDERED: oxyCODONE 5 MG TABLET ONE ×2 (09:05→19:28)
[2017-05-30] MEDS ORDERED: FUROSEMIDE 20 MG TABLET ONE (09:06)
[2017-05-30] MEDS ORDERED: METOPROLOL TARTRATE 25 MG TABLET ONE (09:07)
[2017-05-30] MEDS: METOPROLOL TARTRATE 50 MG TABLET PO SCH (09:11)
[2017-05-30] MEDS: ESCITALOPRAM 10 MG TABLET PO SCH (09:13)
[2017-05-30] MEDS: oxyCODONE 5 MG TABLET PO SCH ×2 (09:14→19:26)
[2017-05-30] MEDS: FUROSEMIDE 20 MG TABLET PO SCH (09:14)
[2017-05-30 17:23] LABS: BASOPHILS % (AUTO) 0.7 %; EOSINOPHILS # (AUTO) 0.2 10^3/uL (0.0-0.7); EOSINOPHILS % (AUTO) 3.1 %; HCT - HEMATOCRIT 31.1 % (37.0-47.0); LYMPHOCYTES # (AUTO) 1.4 10^3/uL (1.5-3.5); LYMPHOCYTES % (AUTO) 23.2 %; MEAN CORPUSCULAR HEMOGLOBIN 25.2 pg (27.0-31.0); MEAN CORPUSCULAR HGB CONC 32.1 g/dL (32.0-36.0); MEAN CORPUSCULAR VOLUME 78.5 fL (81.0-99.0); MEAN PLATELET VOLUME 7.3 fL (7.9-10.8); MONOCYTES # (AUTO) 0.6 10^3/uL (0.0-1.0); MONOCYTES % (AUTO) 9.5 %; NEUTROPHILS # (AUTO) 3.8 10^3/uL (1.5-6.6); NEUTROPHILS % (AUTO) 63.5 %; NUCLEATED RED BLOOD CELLS AUTO 0.1 /100WBC; RED BLOOD COUNT 3.97 10^6/uL (4.20-5.40); RED CELL DISTRIBUTION WIDTH 25.1 % (12.0-15.0); UNCORRECTED WHITE BLOOD COUNT 6.1 x10^3/uL; WHITE BLOOD COUNT 6.1 x10^3/uL (4.8-10.8)
[2017-05-30 17:41] LABS: PLATELET ESTIMATE, MANUAL DECREASED (<130,000) (NORMAL); PLATELET MORPHOLOGY NORMAL APPEARANCE (NORMAL)
[2017-05-30] MEDS: ENOXAPARIN 40 MG/0.4 ML SYRINGE SUBQ SCH (19:26)
[2017-05-31] MEDS: oxyCODONE 5 MG TABLET PO SCH ×2 (04:16→09:35)
[2017-05-31] MEDS ORDERED: oxyCODONE 5 MG TABLET ONE ×2 (04:20→09:33)
[2017-05-31] MEDS ORDERED: URSODIOL 250 MG TABLET PO SCH (09:00)
[2017-05-31] MEDS: ENOXAPARIN 40 MG/0.4 ML SYRINGE SUBQ SCH (09:24)
[2017-05-31 09:34] VITALS: BP 138/59
[2017-05-31] MEDS ORDERED: FUROSEMIDE 20 MG TABLET ONE (09:34)
[2017-05-31] MEDS ORDERED: METOPROLOL TARTRATE 25 MG TABLET ONE (09:34)
[2017-05-31] MEDS: METOPROLOL TARTRATE 50 MG TABLET PO SCH (09:35)
[2017-05-31] MEDS: ESCITALOPRAM 10 MG TABLET PO SCH (09:35)
[2017-05-31] MEDS: FUROSEMIDE 20 MG TABLET PO SCH (09:35)
== END 2017-05-31 10:20 | disposition home or self-care (01) ==
LOC: EDUNIT# → ED 09:55
DX: R53.1 Weakness (principal); N28.9 Disorder of kidney and ureter, unspecified; E87.6 Hypokalemia; D69.6 Thrombocytopenia, unspecified; D64.9 Anemia, unspecified; L98.411 Non-pressure chronic ulcer of buttock limited to breakdown of skin; I10 Essential (primary) hypertension; I25.10 Atherosclerotic heart disease of native coronary artery without angina pectoris; Z86.718 Personal history of other venous thrombosis and embolism; Z79.01 Long term (current) use of anticoagulants; F03.90 Unspecified dementia, unspecified severity, without behavioral disturbance, psychotic disturbance, mood disturbance, and anxiety; E11.9 Type 2 diabetes mellitus without complications; K74.60 Unspecified cirrhosis of liver; M19.90 Unspecified osteoarthritis, unspecified site; M10.9 Gout, unspecified; I87.8 Other specified disorders of veins
CPT/HCPCS: 36415; 51701; 80048; 80306; 81001; 84132; 85025; 96372; 99284; 99285; A9270; J1650; 81003; 87086

== ENCOUNTER 2017-08-18 09:42 | Outpatient (CLI) | payer MEDICARE, MEDICAID | END 2017-08-18 09:43 | disposition critical access hospital (66) | LOC: EMS 09:42 | PROVIDERS: ATTEND Surgery | DX: M54.5 Low back pain (principal); R53.1 Weakness; R06.00 Dyspnea, unspecified | CPT/HCPCS: A0425; A0427 ==

== ENCOUNTER 2017-08-18 10:20 | Inpatient (IN) | payer MEDICARE, MEDICAID ==
[2017-08-18] MEDS ORDERED: SODIUM CHLORIDE 0.9% 1,000 ML IV ONE (10:36)
--- NOTE | 2017-08-18 10:38 | ED Physician Documentation ---
PD HPI BACK PAIN - Stated complaint Stated Complaint: BACK PX - Chief complaint Chief Complaint: Back Pain - History obtained from History obtained from: Patient, EMS - History of Present Illness Timing - onset: How many days ago (2) Timing - duration: Days (2) Timing - details: Gradual onset, Still present Location: Lower Quality: Pain, Spasm, Sharp Associated symptoms: Weakness, Incontinent of urine (chronically). No: Fever Improves with: Position Worsened by: Movement Contributing factors: Other (The patient has been bed bound) Similar symptoms before: Has not had sx before Recently seen: Not recently seen - Additional information Additional information: 82-year-old female has developed back pain over the past 2 days. She is picked up from house where she is living with her daughter and there is quite a bit of domestic disequilibrium in the home. The patient has recently been moved from her home to her daughter's home and the family is working on her home to fix up to sell or rent. The patient would like to go to a care facility and the family is caring for the patient at their home. Review of Systems Constitutional: reports: Fatigue. 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 : Renal insuffiency HEENT: Other Psych: Depression Musculoskeletal: Osteoarthritis, Gout, Chronic back pain Derm: None - Past Surgical History Past Surgical History: Yes General: Appendectomy HEENT: Cataracts - Present Medications Home Medications: Ambulatory Orders Medication Instructions Recorded Confirmed Furosemide 40 mg PO BID 08/18/17 08/18/17 Methadone 5 mg PO Q12H 08/18/17 08/18/17 oxyCODONE [Roxicodone] 5 mg PO TID PRN 08/18/17 08/18/17 - Allergies Allergies/Adverse Reactions: Allergies Allergy/AdvReac Type Severity Reaction Status Date / Time No Known Drug Allergies Allergy Verified 08/18/17 10:29 - Social History Does the pt smoke?: No Smoking Status: Never smoker Does the pt drink ETOH?: Yes Does the pt have substance abuse?: Yes - Immunizations Immunizations are current?: Yes Immunizations: Other immun not current - POLST Patient has POLST: No PD ED PE NORMAL - Vitals Vital signs reviewed: Yes (tachy and hypertensive ) - General General: No acute distress, Well developed/nourished - HEENT HEENT: Atraumatic, PERRL, EOMI - Cardiac Cardiac: RRR, No murmur - Respiratory Respiratory: No respiratory distress, Clear bilaterally - Abdomen Abdomen: Soft, Non tender - Back Back: No CVA TTP, Other (There is tenderness to the lower lumbar spine that does not extend into the sciatic notch. ) - Derm Derm: Normal color, Warm and dry - Extremities Extremities: No deformity, Other (There is post inflamitory hyperpigmentation and dry flaky skin without edema today. It looks like these legs have been swollen a lot previously. ) - Neuro Neuro: No motor deficit, No sensory deficit Eye Opening: Spontaneous Motor: Obeys Commands Verbal: Oriented GCS Score: 15 - Psych Psych: Normal mood, Normal affect Results - Vitals Vitals: Vital Signs - 24 hr 08/18/17 08/18/17 08/18/17 10:25 13:15 13:38 Temperature 37.2 C Heart Rate 115 H 116 H 116 H Respiratory 16 16 Rate Blood Pressure 160/72 H 150/78 H O2 Saturation 96 98 08/18/17 15:19 Temperature Heart Rate 116 H Respiratory 16 Rate Blood Pressure 161/85 H O2 Saturation 96 Oxygen O2 Source [With Activity] Room air O2 Source [Without Activity] Room air O2 Source Room air - Labs Labs: Laboratory Tests 08/18/17 08/18/17 08/18/17 10:59 10:59 10:59 WBC 12.4 H RBC 3.87 L Hgb 11.8 L Hct 35.6 L MCV 91.9 MCH 30.6 MCHC 33.3 RDW 24.5 H Plt Count 68 L MPV 6.9 L Neut # 12.0 H Lymph # 0.3 L [place] # 0.1 Eos # 0.0 Baso # 0.0 Absolute Nucleated RBC 0.01 Nucleated RBC % 0.1 Manual Slide Review Indicated WBC Morphology NORMAL APPEARANCE Platelet Estimate DECREASED (<130,000) Platelet Morphology NORMAL APPEARANCE RBC Morph Micro Appear 1+ OVALOCYTES Sodium 141 Potassium 2.7 L Chloride 105 Carbon Dioxide 19 L Anion Gap 17.0 H BUN 14 Creatinine 1.6 H Estimated GFR (MDRD) 31 L Glucose 75 Calcium 8.0 L Total Bilirubin 3.4 H AST 124 H ALT 28 Alkaline Phosphatase 192 H Troponin I 0.09 Total Protein 7.5 Albumin 1.6 L Globulin 5.9 H Albumin/Globulin Ratio 0.3 L Lipase 28 Urine Color Urine Clarity Urine pH Ur Specific [place] Urine Protein Urine Glucose (UA) Urine Ketones Urine Occult Blood Urine Nitrite Urine Bilirubin Urine Urobilinogen Ur Leukocyte Esterase Ur Microscopic Review Urine Culture Comments Influenza A (Rapid) Influenza B (Rapid) Influenza Types A,B Ag 08/18/17 08/18/17 13:10 14:50 WBC RBC Hgb Hct MCV MCH MCHC RDW Plt Count MPV Neut # Lymph # [place] # Eos # Baso # Absolute Nucleated RBC Nucleated RBC % Manual Slide Review WBC Morphology Platelet Estimate Platelet Morphology RBC Morph Micro Appear Sodium Potassium Chloride Carbon Dioxide Anion Gap BUN Creatinine Estimated GFR (MDRD) Glucose Calcium Total Bilirubin AST ALT Alkaline Phosphatase Troponin I Total Protein Albumin Globulin Albumin/Globulin Ratio Lipase Urine Color DARK YELLOW Urine Clarity CLEAR Urine pH 5.5 Ur Specific [place] 1.025 Urine Protein TRACE Urine Glucose (UA) NEGATIVE Urine Ketones NEGATIVE Urine Occult Blood NEGATIVE Urine Nitrite NEGATIVE Urine Bilirubin NEGATIVE Urine Urobilinogen 0.2 (NORMAL) Ur Leukocyte Esterase NEGATIVE Ur Microscopic Review NOT INDICATED Urine Culture Comments NOT INDICATED Influenza A (Rapid) Negative Influenza B (Rapid) Negative Influenza Types A,B Ag - - Rads (name of study) 2 view chest Radiology: Prelim report reviewed (Impression: No significant change or developing pneumonia. Elevated left diaphragm.), EMP read indepedently, See rad report Lumbar spine Radiology: Prelim report reviewed (Impression: Demineralization of the lumbar spine with compression fractures of T12, L2, and L3 which appears similar to 05/23/2017.), EMP read indepedently, See rad report Procedures - IVC sono (time) 1030 Bedside IVC sono: IVC measures (cm) (1.20), Dehydration PD MEDICAL DECISION MAKING - ED course Complexity details: reviewed old records, reviewed results, re-evaluated patient , considered differential, d/w patient ED course: 82 y/o female with dehydration, tachycardia, hypokalemia and lumbar compression fracture with increased pain. She is a vulnerable adult at risk for decompensation further in the living situation she is in now. The patient was brought from a home where she was found to be soaked in urine in her bed. conference services coordinator have been consulted and a referral to Adult Protective Services has been instigated by the RN caring for the patient. Here in the ED the patient is given IV saline and potassium as well as pain medication. Departure - Departure Disposition: ED Place in Observation Clinical Impression: Living accommodation issues, Renal insufficiency, Dehydration, Hypokalemia Condition: Poor
[2017-08-18] MEDS ORDERED: DEXAMETHASONE 10 MG/ML VIAL IVP STA (11:06)
[2017-08-18 11:25] LABS: BASOPHILS % (AUTO) 0.1 %; HGB - HEMOGLOBIN 11.8 g/dL (12.0-16.0); LYMPHOCYTES # (AUTO) 0.3 10^3/uL (1.5-3.5); LYMPHOCYTES % (AUTO) 2.4 %; MEAN CORPUSCULAR HEMOGLOBIN 30.6 pg (27.0-31.0); MEAN CORPUSCULAR HGB CONC 33.3 g/dL (32.0-36.0); MEAN CORPUSCULAR VOLUME 91.9 fL (81.0-99.0); MEAN PLATELET VOLUME 6.9 fL (7.9-10.8); MONOCYTES # (AUTO) 0.1 10^3/uL (0.0-1.0); MONOCYTES % (AUTO) 1.1 %; NEUTROPHILS % (AUTO) 96.4 %; PLT - PLATELET COUNT 68 10^3/uL (130-450); RED BLOOD COUNT 3.87 10^6/uL (4.20-5.40); RED CELL DISTRIBUTION WIDTH 24.5 % (12.0-15.0); WHITE BLOOD COUNT 12.4 x10^3/uL (4.8-10.8)
[2017-08-18 11:27] LABS: ALBUMIN 1.6 g/dL (3.2-5.5); ALBUMIN/GLOBULIN RATIO 0.3 (1.0-2.2); BILIRUBIN,TOTAL 3.4 mg/dL (0.2-1.0); CREATININE 1.6 mg/dL (0.4-1.0); TOTAL PROTEIN 7.5 g/dL (6.7-8.2)
[2017-08-18 12:00] LABS: PLATELET ESTIMATE, MANUAL DECREASED (<130,000) (NORMAL); PLATELET MORPHOLOGY NORMAL APPEARANCE (NORMAL); RBC MORPHOLOGY (MULTIPLE) 1+ OVALOCYTES (NORMAL)
[2017-08-18] MEDS ORDERED: POTASSIUM CHLORIDE 20 MEQ TABLET PO STA (12:33)
[2017-08-18] MEDS ORDERED: POTASSIUM BICARB 25 MEQ TABLET PO STA (12:59)
[2017-08-18] MEDS ORDERED: fentaNYL 100 MCG/2 ML VIAL IVP STA (13:01)
[2017-08-18 13:23] LABS: GLUCOSE, URINE (UA) NEGATIVE (NEGATIVE); KETONES,URINE (UA) NEGATIVE (NEGATIVE); LEUKOCYTE ESTERASE, URINE NEGATIVE (NEGATIVE); NITRITE,URINE NEGATIVE (NEGATIVE); OCCULT BLOOD,URINE NEGATIVE (NEGATIVE); PH,URINE 5.5 PH (5.0-7.5); PROTEIN,URINE TRACE mg/dL (NEGATIVE); UROBILINOGEN,URINE 0.2 (NORMAL) E.U./dL (NORMAL)
[2017-08-18 13:27] LABS: BILIRUBIN,URINE NEGATIVE (NEGATIVE); CLARITY,URINE CLEAR (CLEAR)
[2017-08-18] MEDS ORDERED: SODIUM CHLORIDE 0.9% 500 ML IV ONE (13:29)
--- NOTE | 2017-08-18 13:30 | XRAY Report ---
EXAM: LUMBOSACRAL SPINE RADIOGRAPHY EXAM DATE: 08/18/2017 01:14 PM. CLINICAL HISTORY: Low back pain . COMPARISONS: 05/23/2017. TECHNIQUE: 3 views. FINDINGS: Alignment: No subluxation or significant scoliosis. Bones: Five [id number] lumbar vertebral bodies are present. There is marked demineralization of the lumbar spine. There is a moderate wedging compression fracture of T12 which appears similar. Ther e is a mild to moderate compression fracture of the superior and inferior endplates of L2. There is a mild superior endplate compression fracture of L3, similar to previous. Disks: There is [id number] disk height loss at L4-L5 which appears similar. Facets: The facet joints are not well seen secondary to demineralization. Sacroiliac Joints: Not well seen. Soft Tissues: There are multiple gas-filled loops of bowel in the lower abdomen which appear larger t ward previous. There is extensive atherosclerotic vascular calcification. IMPRESSION: Demineralization of the lumbar spine with compression fractures of T12, L2, and L3 which appear similar to 05/23/2017. [facility] Referring Provider Line: [phone] SITE ID: [id number]
--- NOTE | 2017-08-18 15:29 | XRAY Report ---
EXAM: CHEST RADIOGRAPHY EXAM DATE: 08/18/2017 03:00 PM. CLINICAL HISTORY: Elevated white count. COMPARISON: 03/15/2017. TECHNIQUE: 2 views. FINDINGS: Lungs/Pleura: There is elevation of the left hemidiaphragm. No developing consolidative process or fo ken pneumonia. Mediastinum: Heart and mediastinal contours are unremarkable. Other: None. IMPRESSION: No significant change or developing pneumonia. Elevated left diaphragm. [facility] Referring Provider Line: [phone] SITE ID: [id number]
--- NOTE | 2017-08-18 15:29 | XRAY Preliminary Report ---
Exam: XR CHEST 2 VIEW X-RAY IMPRESSION: No significant change or developing pneumonia. Elevated left diaphragm. [facility] SITE ID: [id number]
[2017-08-18] MEDS ORDERED: oxyCOD/ACETAMIN 5 MG/325 MG TABLET PO STA (16:34)
[2017-08-18] MEDS ORDERED: IBUPROFEN 600 MG TABLET PO PRN (17:00)
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
[2017-08-18] MEDS: NS W/20 MEQ KCL 1,000 ML IV SCH (17:53)
[2017-08-18] MEDS: SODIUM CHLORIDE FLUSH 0.9% 10 ML SYRINGE IVP PRN (17:54)
[2017-08-18] MEDS: METHADONE 5 MG TABLET PO SCH (18:28)
[2017-08-18 18:31] LABS: CALCIUM 7.7 mg/dL (8.5-10.3); CREATININE 1.6 mg/dL (0.4-1.0)
[2017-08-18] MEDS: HYDROmorphone 1 MG/ML SYRINGE IVP PRN (18:49)
[2017-08-18] MEDS: SODIUM CHLORIDE FLUSH 0.9% 10 ML SYRINGE IVP SCH (19:35)
[2017-08-18] MEDS ORDERED: ENOXAPARIN 40 MG/0.4 ML SYRINGE SUBQ SCH (21:00)
[2017-08-18] MEDS ORDERED: NITROGLYCERIN SL 0.4 MG TABLET SL PRN (21:39)
[2017-08-18] MEDS ORDERED: BISACODYL 10 MG SUPP PR PRN (22:35)
[2017-08-18] MEDS ORDERED: MAGNESIUM HYDROXIDE 2,400 MG/30 ML UDC PO SCH (22:54)
[2017-08-18] MEDS ORDERED: MAGNESIUM CITRATE 296 ML BOTTLE PO SCH (23:00)
[2017-08-18] MEDS: METOPROLOL 5 MG/5 ML VIAL IVP PRN (23:01)
[2017-08-19] MEDS: NS W/20 MEQ KCL 1,000 ML IV SCH ×2 (03:55→13:34)
[2017-08-19] MEDS: METHADONE 5 MG TABLET PO SCH ×3 (05:05→20:18)
[2017-08-19] MEDS: HYDROmorphone 1 MG/ML SYRINGE IVP PRN ×3 (06:08→14:02)
[2017-08-19] MEDS: SODIUM CHLORIDE FLUSH 0.9% 10 ML SYRINGE IVP SCH ×3 (06:09→22:01)
[2017-08-19] MEDS: PANTOPRAZOLE 40 MG TABLET PO SCH (06:09)
[2017-08-19 06:13] LABS: EOSINOPHILS % (AUTO) 0.3 %; HGB - HEMOGLOBIN 11.6 g/dL (12.0-16.0); LYMPHOCYTES # (AUTO) 0.5 10^3/uL (1.5-3.5); LYMPHOCYTES % (AUTO) 5.5 %; MEAN CORPUSCULAR HEMOGLOBIN 31.1 pg (27.0-31.0); MEAN CORPUSCULAR HGB CONC 33.8 g/dL (32.0-36.0); MEAN PLATELET VOLUME 7.6 fL (7.9-10.8); MONOCYTES # (AUTO) 0.3 10^3/uL (0.0-1.0); MONOCYTES % (AUTO) 2.8 %; NEUTROPHILS % (AUTO) 91.4 %; PLT - PLATELET COUNT 62 10^3/uL (130-450); RED BLOOD COUNT 3.72 10^6/uL (4.20-5.40); RED CELL DISTRIBUTION WIDTH 24.6 % (12.0-15.0); WHITE BLOOD COUNT 9.9 x10^3/uL (4.8-10.8)
[2017-08-19 06:21] LABS: ALBUMIN 1.6 g/dL (3.2-5.5); ALBUMIN/GLOBULIN RATIO 0.3 (1.0-2.2); BILIRUBIN,TOTAL 2.8 mg/dL (0.2-1.0); CALCIUM 7.5 mg/dL (8.5-10.3); CREATININE 1.8 mg/dL (0.4-1.0); TOTAL PROTEIN 6.9 g/dL (6.7-8.2)
[2017-08-19 06:26] LABS: HB2 TOTAL 12.4 g/dL; HEMOGLOBIN A1C 0.38 g/dL
[2017-08-19 06:37] LABS: PLATELET ESTIMATE, MANUAL DECREASED (<130,000) (NORMAL); PLATELET MORPHOLOGY NORMAL APPEARANCE (NORMAL); RBC MORPHOLOGY (MULTIPLE) 1+ MACROCYTOSIS (NORMAL)
[2017-08-19] MEDS: POLYETHYLENE GLYCOL 3350 17 GM PACKET PO SCH (09:21)
[2017-08-19] MEDS: SENNA 8.6 MG TABLET PO SCH (09:21)
[2017-08-19] MEDS ORDERED: MAGNESIUM CITRATE 296 ML BOTTLE PO SCH ×2 (15:44→16:12)
[2017-08-19] MEDS: METOPROLOL 5 MG/5 ML VIAL IVP PRN (16:21)
[2017-08-19] MEDS ORDERED: ACETAMINOPHEN 1,000 MG/100 ML 100 ML IV PRN (16:33)
[2017-08-19] MEDS ORDERED: FUROSEMIDE 40 MG/4 ML VIAL IVP SCH (17:00)
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
[2017-08-19 21:31] LABS: HGB - HEMOGLOBIN 10.2 g/dL (12.0-16.0); MEAN CORPUSCULAR HEMOGLOBIN 30.1 pg (27.0-31.0); MEAN CORPUSCULAR HGB CONC 31.7 g/dL (32.0-36.0); MEAN CORPUSCULAR VOLUME 94.7 fL (81.0-99.0); MEAN PLATELET VOLUME 7.7 fL (7.9-10.8); RED BLOOD COUNT 3.39 10^6/uL (4.20-5.40); RED CELL DISTRIBUTION WIDTH 25.9 % (12.0-15.0); WHITE BLOOD COUNT 12.8 x10^3/uL (4.8-10.8)
--- NOTE | 2017-08-19 21:47 | XRAY Preliminary Report ---
Exam: XR CHEST 1 VIEW X-RAY IMPRESSION: 1. Mild cardiomegaly. 2. New faint right upper lobe and left lung base infiltrates with small left pleural effusion. 3. Moderately low lung volumes. [facility] SITE ID: [id number]
--- NOTE | 2017-08-19 21:50 | XRAY Report ---
EXAM: CHEST RADIOGRAPHY EXAM DATE: 08/19/2017 09:34 PM. CLINICAL HISTORY: Febrile, altered mental status, oxygen use. COMPARISON: 08/18/2017. 03/15/2017. TECHNIQUE: 1 view. FINDINGS: Lungs/Pleura: Moderate elevation both hemidiaphragms. New faint right upper lobe airspace infiltrates as well as patchy opacities now left base with new mild blunting left lateral costophrenic angle. No pneumothorax. Mediastinum: Stable mild cardiomegaly. Other: None. IMPRESSION: 1. Mild cardiomegaly. 2. New faint right upper lobe and left lung base infiltrates with small left pleural effusion. 3. Moderately low lung volumes. [facility] Referring Provider Line: [phone] SITE ID: [id number]
[2017-08-19] MEDS ORDERED: SODIUM CHLORIDE 0.9% 500 ML IV ONE (22:18)
[2017-08-19] MEDS ORDERED: FUROSEMIDE 40 MG TABLET PO SCH (23:00)
[2017-08-19] MEDS ORDERED: SPIRONOLACTONE 25 MG TABLET PO SCH (23:00)
[2017-08-19] MEDS ORDERED: METOPROLOL TARTRATE 25 MG TABLET PO SCH (23:00)
[2017-08-20 03:09] LABS: VBG BASE EXCESS -5.1 mmol/L (-2 - +2); VBG PCO2 29.1 mmHg (41-51); VBG PH 7.416 (7.31-7.41); VBG PO2 177.9 mmHg (25-47); VBG TOTAL CO2 19.2 mmol/L (24-29)
[2017-08-20 04:33] LABS: BASOPHILS % (AUTO) 0.2 %; EOSINOPHILS % (AUTO) 0.2 %; HGB - HEMOGLOBIN 10.7 g/dL (12.0-16.0); LYMPHOCYTES # (AUTO) 0.4 10^3/uL (1.5-3.5); LYMPHOCYTES % (AUTO) 3.3 %; MEAN CORPUSCULAR HEMOGLOBIN 30.2 pg (27.0-31.0); MEAN CORPUSCULAR HGB CONC 31.6 g/dL (32.0-36.0); MEAN CORPUSCULAR VOLUME 95.3 fL (81.0-99.0); MEAN PLATELET VOLUME 8.2 fL (7.9-10.8); MONOCYTES # (AUTO) 0.2 10^3/uL (0.0-1.0); MONOCYTES % (AUTO) 1.4 %; NEUTROPHILS # (AUTO) 11.6 10^3/uL (1.5-6.6); NEUTROPHILS % (AUTO) 94.9 %; PLT - PLATELET COUNT 50 10^3/uL (130-450); RED BLOOD COUNT 3.54 10^6/uL (4.20-5.40); RED CELL DISTRIBUTION WIDTH 25.6 % (12.0-15.0); WHITE BLOOD COUNT 12.2 x10^3/uL (4.8-10.8)
[2017-08-20 05:37] LABS: PLATELET ESTIMATE, MANUAL DECREASED (<130,000) (NORMAL); PLATELET MORPHOLOGY NORMAL APPEARANCE (NORMAL); RBC MORPHOLOGY (MULTIPLE) 1+ MACROCYTOSIS (NORMAL)
[2017-08-20] MEDS: SODIUM CHLORIDE FLUSH 0.9% 10 ML SYRINGE IVP SCH ×3 (05:48→20:25)
[2017-08-20] MEDS: METHADONE 5 MG TABLET PO SCH ×3 (05:48→19:38)
[2017-08-20] MEDS: PANTOPRAZOLE 40 MG TABLET PO SCH (05:48)
[2017-08-20 06:26] LABS: ALBUMIN 1.4 g/dL (3.2-5.5); ALBUMIN/GLOBULIN RATIO 0.3 (1.0-2.2); BILIRUBIN,TOTAL 2.4 mg/dL (0.2-1.0); CALCIUM 7.7 mg/dL (8.5-10.3); CREATININE 2.5 mg/dL (0.4-1.0); TOTAL PROTEIN 6.5 g/dL (6.7-8.2)
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
[2017-08-20] MEDS: SPIRONOLACTONE 25 MG TABLET PO SCH ×3 (08:20→10:24)
[2017-08-20] MEDS: PIPERACILLIN/TAZOBACTAM 2.25 GM in SODIUM CHLORIDE 0.9% MINIBAG 100 ML IV SCH ×3 (08:21→21:19)
[2017-08-20] MEDS: METOPROLOL TARTRATE 25 MG TABLET PO SCH ×4 (08:21→18:14)
[2017-08-20] MEDS: FUROSEMIDE 40 MG TABLET PO SCH ×3 (08:21→10:24)
[2017-08-20] MEDS: SENNA 8.6 MG TABLET PO SCH ×2 (08:21→08:36)
[2017-08-20] MEDS: SODIUM CHLORIDE FLUSH 0.9% 10 ML SYRINGE IVP PRN ×2 (08:21→11:46)
[2017-08-20] MEDS: POLYETHYLENE GLYCOL 3350 17 GM PACKET PO SCH (08:36)
[2017-08-20] MEDS ORDERED: VANCOMYCIN PER PHARMACY 1 GM in SODIUM CHLORIDE 0.9% 250 ML IV SCH (11:00)
[2017-08-20] MEDS: VANCOMYCIN INJ 1 GM in SODIUM CHLORIDE 0.9% 250 ML IV SCH (11:42)
[2017-08-20] MEDS: SODIUM CHLORIDE 0.9% 1,000 ML IV SCH (11:42)
--- NOTE | 2017-08-20 16:28 | CONSULTATION NOTE ---
Palliative Care Consultation - Referral Referring Provider: Yara TREVINO Time of Visit: [id number] Referral setting: Hospitalized patient Referral Reason: Goals of Care/Failure to Thrive/NH - Information Sources Records reviewed: RN notes reviewed, Previous records reviewed History/Review of Systems obtained from: Family (daughter Jordana), Caregiver ( clinical staff; hospitalist) Exam limitations: Clinical condition (patient nonresponsive; opening eyes only- staring through) - History of Present Illness Brief History of Present Illness: This is an 82-year-old woman with a complex history, has known cirrhosis and continually to actively drink. She has been a failure to thrive, she was at her home, which is becoming increasingly unsafe. She had multiple dogs who were not trained, there are many complaints as far as being able to meet her care needs there. In response to this her daughter who has been overseeing her care did move her into her own home, she has been providing care, though this is been quite overwhelming. Patient has ongoing lower back pain from compression fractures from T12, L2, and L3. She has been maintained on methadone and oxycodone. She had increasing pain, had been a little bit more week, some less appetite, and had called 911 to her grandson. I daughter is quite shocked at patient's turn for the worse, she does present now with evolving NH, increasing troponin to 3.12, very much unresponsive, she is 50,000 platelets, and now diagnosed with pneumonia. Her MRSA positive blood cultures came back, and she has been started on antibiotics. She remains with an elevated white count, increased shortness of breath, and continued decline in her cognitive status. On evaluation, patient does present with respiratory effort, inspiratory and expiratory wheezes, as well as tachycardia. She does not appear to respond to me, does seem somewhat uncomfortable with any kind of touch. She has a long list of multiple comorbidities including type 2 diabetes , hypertension, history of 2 previous and STEMI's, DVT, dementia, liver cirrhosis, renal insufficiency now worsening, depression with suicidal attempt, osteoporosis, gout, and has been mostly bedbound. Patient does have a POLST form filled out in 06/2015 with DNAR/ and Limited Interventions is only form of advanced directive available to review. Patient has been on hospice of the [facility], discharged 02/07/2017 and was on second benefit period. It is further complicated by the fact and APS referral has been made, as the patient showed up with signs of neglect, though the daughter does report patient refuses to be bathed. Medical/Surgical History - Past Medical History Cardiovascular: reports: Hypertension, Coronary artery disease, Deep vein thrombosis, NH ([facility] 03/28 & 06/28) Respiratory: reports: None Neuro: reports: Dementia Endocrine/Autoimmune: reports: Type 2 diabetes GI: reports: GERD, C.difficile, Cirrhosis [employer]: reports: None : reports: Incontinence, Renal insuffiency HEENT: reports: Other Psych: reports: Depression (hx suicide attempt 06/28) Musculoskeletal: reports: Osteoarthritis, Gout, Chronic back pain Derm: reports: None MRSA Hx?: Yes - Past Surgical History General: reports: Appendectomy HEENT: reports: Cataracts - Substance History Use: Uses substance without health or social issues: NONE Abuse: Recurrent use of substance despite neg consequences: Alcohol Dependence: Experiences withdrawal or developed tolerances: NONE Social History - Living Situation Living arrangement: Other (living at daugther's home for 2 months; Previously seen in her own home, was found not appropriate for support.) Living Situation: With family (daughter/ and children) Family History - Family History Family History Comment/Other: has several sisters still alive Medications/Allergies - Medications Active Medication List: Active Medications Bisacodyl (Dulcolax Supp) 10 mg ME DAILY PRN PRN Reason: Constipation Last Admin: 08/19/17 15:57 Dose: 10 mg Furosemide (Lasix) 40 mg PO DAILY [facility] Last Admin: 08/20/17 10:24 Dose: Not Given Acetaminophen (Ofirmev) 100 mls @ 400 mls/hr IV Q6HR PRN PRN Reason: PAIN Last Infusion: 08/19/17 18:54 Dose: Infused Sodium Chloride (Normal Saline 0.9%) 1,000 mls @ 75 mls/hr IV .[id number] [facility] Last Infusion: 08/20/17 15:42 Dose: 75 mls/hr Vancomycin HCl 1 gm/ Sodium (Chloride) 250 mls @ 167 mls/hr IV Q24H [facility] Last Infusion: 08/20/17 14:40 Dose: Infused Piperacillin Sod/Tazobactam (Sod 2.25 gm/ Sodium Chloride) 100 mls @ 200 mls/ hr IV Q6H [facility] Methadone HCl () 5 mg PO TID [facility] Last Admin: 08/20/17 15:02 Dose: Not Given Metoprolol Tartrate (Lopressor) 25 mg PO BID [facility] Last Admin: 08/20/17 08:36 Dose: Not Given Nitroglycerin (Nitrostat) 0.4 mg SL Q5MIN PRN PRN Reason: Chest Pain Pantoprazole Sodium (Protonix) 40 mg PO QDAC [facility] Last Admin: 08/20/17 05:48 Dose: 40 mg Polyethylene Glycol (Miralax) 17 gm PO DAILY [facility] Last Admin: 08/20/17 08:36 Dose: Not Given Senna (Senokot) 8.6 mg PO DAILY [facility] Last Admin: 08/20/17 08:36 Dose: Not Given Sodium Chloride (Normal Saline Flush 0.9%) 10 ml IVP PRN PRN PRN Reason: NEEDED PER PROVIDER ORDERS Last Admin: 08/20/17 11:46 Dose: 10 ml Sodium Chloride (Normal Saline Flush 0.9%) 10 ml IVP Q8HR [facility] Last Admin: 08/20/17 15:01 Dose: Not Given Spironolactone (Aldactone) 50 mg PO DAILY [facility] Last Admin: 08/20/17 10:24 Dose: Not Given Furosemide 40 mg PO BID 08/18/17 Methadone 5 mg PO Q12H 08/18/17 oxyCODONE [Roxicodone] 5 mg PO TID PRN 08/18/17 - Allergies Allergies/Adverse Reactions: Allergies Allergy/AdvReac Type Severity Reaction Status Date / Time No Known Drug Allergies Allergy Verified 08/18/17 10:29 Review of Systems - Constitutional Constitutional: reports: Poor appetite - Gastrointestinal Gastrointestinal: reports: Poor appetite - Genitourinary Genitourinary: reports: Incontinence - Musculoskeletal Musculoskeletal: reports: Other (mostly bed bound; transfered to [facility]) - Integumentary Integumentary: reports: Lesions, Dryness - Neurological Neurological: reports: General weakness, Memory problems - Endocrine Endocrine: reports: Diabetes type 2 - Hematologic/Lymphatic Hematologic/Lymphatic: reports: Bruising - All Other Systems All Other Systems: reports: Reviewed and negative Physical Exam - Vital Signs Vital Signs: Vital Signs x48h Temp Pulse Resp BP BP Pulse Ox 08/20/17 15:57 37.5 C 112 H 28 H 116/59 L 98 08/20/17 13:00 36.2 C L 114 H 20 128/58 L 96 08/20/17 08:36 144/59 H - Physical Exam General Appearance: positive: Moderate distress (respiratory effort; lower extremities moving frequently) Eyes Bilateral: positive: Other (staring out; not focusing when spoken to;) ENT: positive: Dry mucous membranes Neck: positive: No JVD, Trachea midline Cardiovascular: positive: Irregularly irregular, Tachycardia Respiratory: positive: Wheezes (insp/exp wheezing through out) Abdomen: positive: Soft, Tenderness, Distended Skin: positive: Pallor, Bruising, Other (multiple dressings on patient;) Extremities: positive: No pedal edema Neurologic/Psychiatric: positive: Other (barely responsive; does exhibit pain when touched) Palliative Care - POLST Patient has POLST: Yes POLST Status: DNR, Selective Treatment Pain: Pain worsening, Comment (Patient with known uncontrolled back pain secondary to fractures, had been taking methadone twice a day per daughter's report with intermittent oxycodone; reports patient had had escalation of back pain prior night of admit, had taken extra methadone as well as alcohol. Multiple "fights" regarding both limitations put on patient really for both pain meds and alcohol per daughter's report.) Performance Status: Patient currently bedbound, unresponsive, not taking even sips at this point in time. I would put her at a PPS of 10% to the time of visit - Palliative Care Discussion: Erasmoter much discussion, the goal is to focus on comfort, relief of suffering, will continue the antibiotics for another 24 hours as a time trial, is hopeful patient will become more responsive and able to interact with daughter. We did discuss in the context of comfort measures certainly end-of-life can be somewhat unpredictable anywhere from hours to days, and may need a transition plan of patient improves.et with daughter and Austin Mckinley TREVINO, to review current condition of patient. Daughter overwhelmed as patient had come in with just back pain, I did not realize how quickly she was changing and difficult understanding the seriousness of her current condition. Did review patient is MRSA positive with blood cultures, has developed pneumonia, her kidneys are worsening, and she has NH that is continuing to evolve. Currently the decision needs to be made whether to focus on comfort only, or like it further intervention. In the context of how sick she is, previously stated wishes, though daughter reports she is not ready for her to , she does feel patient would want to focus on comfort only, that she is "been ready for quite a while" . She says of note patient thought that she actually was going to the night before she went into the hospital. Though she has said this before, and daughter is feeling quite badly that patient has taken a turn for the worst. She does not seem to be aware of pending APS referral, reports she has brought her to her own home for the last 2 months, has been overwhelming. Unable to really find any support or help that she does not qualify for mickey. Had previously been on hospice after an admit from [place], she has stabilized and had since been discharged the patient was cared for in her own home at that time. Does admit is very difficult to see her in this condition, patient does not appear to recognize daughter during visit, or respond. We did review signs and symptoms of continued deterioration. We did have a chance as the foundry molder came by to have scripture bread and prayers said, hopefully this was of comfort and to both the patient and the daughter. Patient's history is actually Catholicism though she has not been practicing in the last several years. Results - Lab Results Lab results reviewed: Yes Fish Bones: 08/20/17 03:00 08/20/17 05:57 Lab and Imaging Results: Lab Results x24hrs 08/20/17 08/20/17 08/20/17 Range/Units 05:57 05:57 03:00 WBC (4.8-10.8) x10^3/uL RBC (4.20-5.40) 10^6/uL Hgb (12.0-16.0) g/dL Hct (37.0-47.0) % MCV (81.0-99.0) fL MCH (27.0-31.0) pg MCHC (32.0-36.0) g/dL RDW (12.0-15.0) % Plt Count (130-450) 10^3/uL MPV (7.9-10.8) fL Neut # (1.5-6.6) 10^3/uL Lymph # (1.5-3.5) 10^3/uL [place] # (0.0-1.0) 10^3/uL Eos # (0.0-0.7) 10^3/uL Baso # (0.0-0.1) 10^3/uL Absolute Nucleated RBC x10^3/uL Nucleated RBC % /100WBC Manual Slide Review Platelet Estimate (NORMAL) Platelet Morphology (NORMAL) RBC Morph Micro Appear (NORMAL) VBG pH 7.416 H (7.31-7.41) VBG pCO2 29.1 L (41-51) mmHg VBG pO2 177.9 H (25-47) mmHg VBG HCO3 18.3 L (23-28) mmol/L VBG Total CO2 19.2 L (24-29) mmol/L VBG O2 Saturation 99.1 H (60-80) % VBG Base Excess -5.1 L (-2 - +2) mmol/L Sodium 142 (135-145) mmol/L Potassium 4.1 (3.5-5.0) mmol/L Chloride 113 H (101-111) mmol/L Carbon Dioxide 21 (21-32) mmol/L Anion Gap 8.0 (6-13) BUN 38 H (6-20) mg/dL Creatinine 2.5 H (0.4-1.0) mg/dL Estimated GFR (MDRD) 18 L (>89) Glucose 131 H (70-100) mg/dL Lactic Acid (0.5-2.2) mmol/L Calcium 7.7 L (8.5-10.3) mg/dL Total Bilirubin 2.4 H (0.2-1.0) mg/dL AST 109 H (10-42) IU/L ALT 28 (10-60) IU/L Alkaline Phosphatase 136 H (42-121) IU/L Troponin I 3.12 H* (<0.49) ng/mL Total Protein 6.5 L (6.7-8.2) g/dL Albumin 1.4 L (3.2-5.5) g/dL Globulin 5.1 H (2.1-4.2) g/dL Albumin/Globulin Ratio 0.3 L (1.0-2.2) 08/20/17 08/20/17 08/20/17 Range/Units 03:00 03:00 03:00 WBC 12.2 H (4.8-10.8) x10^3/uL RBC 3.54 L (4.20-5.40) 10^6/uL Hgb 10.7 L (12.0-16.0) g/dL Hct 33.8 L (37.0-47.0) % MCV 95.3 (81.0-99.0) fL MCH 30.2 (27.0-31.0) pg MCHC 31.6 L (32.0-36.0) g/dL RDW 25.6 H (12.0-15.0) % Plt Count 50 L (130-450) 10^3/uL MPV 8.2 (7.9-10.8) fL Neut # 11.6 H (1.5-6.6) 10^3/uL Lymph # 0.4 L (1.5-3.5) 10^3/uL [place] # 0.2 (0.0-1.0) 10^3/uL Eos # 0.0 (0.0-0.7) 10^3/uL Baso # 0.0 (0.0-0.1) 10^3/uL Absolute Nucleated RBC 0.05 x10^3/uL Nucleated RBC % 0.4 /100WBC Manual Slide Review Indicated Platelet Estimate DECREASED (<130,000) (NORMAL) Platelet Morphology NORMAL APPEARANCE (NORMAL) RBC Morph Micro Appear 1+ MACROCYTOSIS (NORMAL) VBG pH (7.31-7.41) VBG pCO2 (41-51) mmHg VBG pO2 (25-47) mmHg VBG HCO3 (23-28) mmol/L VBG Total CO2 (24-29) mmol/L VBG O2 Saturation (60-80) % VBG Base Excess (-2 - +2) mmol/L Sodium (135-145) mmol/L Potassium (3.5-5.0) mmol/L Chloride (101-111) mmol/L Carbon Dioxide (21-32) mmol/L Anion Gap (6-13) BUN (6-20) mg/dL Creatinine (0.4-1.0) mg/dL Estimated GFR (MDRD) (>89) Glucose (70-100) mg/dL Lactic Acid 3.0 H* (0.5-2.2) mmol/L Calcium (8.5-10.3) mg/dL Total Bilirubin (0.2-1.0) mg/dL AST (10-42) IU/L ALT (10-60) IU/L Alkaline Phosphatase (42-121) IU/L Troponin I 2.95 H* (<0.49) ng/mL Total Protein (6.7-8.2) g/dL Albumin (3.2-5.5) g/dL Globulin (2.1-4.2) g/dL Albumin/Globulin Ratio (1.0-2.2) 08/19/17 08/19/17 Range/Units 21:12 21:12 WBC 12.8 H (4.8-10.8) x10^3/uL RBC 3.39 L (4.20-5.40) 10^6/uL Hgb 10.2 L (12.0-16.0) g/dL Hct 32.1 L (37.0-47.0) % MCV 94.7 (81.0-99.0) fL MCH 30.1 (27.0-31.0) pg MCHC 31.7 L (32.0-36.0) g/dL RDW 25.9 H (12.0-15.0) % Plt Count 60 L (130-450) 10^3/uL MPV 7.7 L (7.9-10.8) fL Neut # (1.5-6.6) 10^3/uL Lymph # (1.5-3.5) 10^3/uL [place] # (0.0-1.0) 10^3/uL Eos # (0.0-0.7) 10^3/uL Baso # (0.0-0.1) 10^3/uL Absolute Nucleated RBC x10^3/uL Nucleated RBC % /100WBC Manual Slide Review Platelet Estimate (NORMAL) Platelet Morphology (NORMAL) RBC Morph Micro Appear (NORMAL) VBG pH (7.31-7.41) VBG pCO2 (41-51) mmHg VBG pO2 (25-47) mmHg VBG HCO3 (23-28) mmol/L VBG Total CO2 (24-29) mmol/L VBG O2 Saturation (60-80) % VBG Base Excess (-2 - +2) mmol/L Sodium (135-145) mmol/L Potassium (3.5-5.0) mmol/L Chloride (101-111) mmol/L Carbon Dioxide (21-32) mmol/L Anion Gap (6-13) BUN (6-20) mg/dL Creatinine (0.4-1.0) mg/dL Estimated GFR (MDRD) (>89) Glucose (70-100) mg/dL Lactic Acid 3.6 H* (0.5-2.2) mmol/L Calcium (8.5-10.3) mg/dL Total Bilirubin (0.2-1.0) mg/dL AST (10-42) IU/L ALT (10-60) IU/L Alkaline Phosphatase (42-121) IU/L Troponin I (<0.49) ng/mL Total Protein (6.7-8.2) g/dL Albumin (3.2-5.5) g/dL Globulin (2.1-4.2) g/dL Albumin/Globulin Ratio (1.0-2.2) Impression and Recommendations - Palliative Care Impression: This is an 82-year-old woman with multiple comorbidities, worsening organ failure, and presents is nonresponsive with evolving NH, MRSA pneumonia, known cirrhosis and continued alcohol abuse, now needing to make a decision as far as focusing on comfort. Palliative care to provide support regarding clarifying goals of care, at this point in time will time trial another 24 hours of antibiotics, continue to monitor patient, and focus on comfort and relief of suffering. Recommendations/Counseling Done: 1. Acute on chronic pain. Patient does present with hyper analgesia, any kind of touch has her calling out. And patient no longer able to take oral meds, would recommend transitioning to intermittent hydromorphone versus morphine secondary to a kidney failure. Will be dependent on the nurses to be vigilant for watching for signs and symptoms of discomfort. Methadone has a long half- life so will continue to have some coverage but expect this to wear off in the next 10-12 hours. 2. Agitation. Focuses on comfort, would recommend using lorazepam as needed to manage signs and symptoms of agitation or acute symptoms of delirium. 3. Advanced care planning, goals of care conversation. Did meet with [facility] hospitalist, Dr. Silveira, decision was to focus on comfort and relief of suffering. Anticipatory guidance was provided as well as addressed questions as best as possible. If patient needs to be transition to another setting this may become more complicated as daughter does not appear to be aware of the APS referral. Time Spent: 90 minutes with greater than 50% of this done in counseling and support for daughter, eliciting goals of care, coordination of care with hospitalist and clinical staff, and anticipatory guidance provided.
[2017-08-20] MEDS: LORazepam 2 MG/ML VIAL IVP PRN ×2 (18:20→22:38)
[2017-08-20] MEDS: HYDROmorphone 1 MG/ML SYRINGE IVP PRN (19:35)
[2017-08-21] MEDS: SODIUM CHLORIDE 0.9% 1,000 ML IV SCH (03:19)
[2017-08-21] MEDS: PIPERACILLIN/TAZOBACTAM 2.25 GM in SODIUM CHLORIDE 0.9% MINIBAG 100 ML IV SCH ×2 (03:20→11:06)
[2017-08-21] MEDS: SODIUM CHLORIDE FLUSH 0.9% 10 ML SYRINGE IVP SCH ×3 (05:19→21:00)
[2017-08-21 05:41] LABS: BASOPHILS % (AUTO) 0.3 %; EOSINOPHILS % (AUTO) 3.5 %; HGB - HEMOGLOBIN 10.4 g/dL (12.0-16.0); LYMPHOCYTES % (AUTO) 5.2 %; MEAN CORPUSCULAR HGB CONC 33.1 g/dL (32.0-36.0); MEAN CORPUSCULAR VOLUME 93.8 fL (81.0-99.0); MONOCYTES % (AUTO) 5.1 %; NEUTROPHILS % (AUTO) 85.9 %; RED BLOOD COUNT 3.35 10^6/uL (4.20-5.40); RED CELL DISTRIBUTION WIDTH 25.8 % (12.0-15.0); WHITE BLOOD COUNT 8.5 x10^3/uL (4.8-10.8)
[2017-08-21 05:45] LABS: ALBUMIN 1.2 g/dL (3.2-5.5); ALBUMIN/GLOBULIN RATIO 0.3 (1.0-2.2); BILIRUBIN,TOTAL 2.7 mg/dL (0.2-1.0); CALCIUM 7.5 mg/dL (8.5-10.3); CREATININE 2.6 mg/dL (0.4-1.0); TOTAL PROTEIN 5.7 g/dL (6.7-8.2)
[2017-08-21 05:53] LABS: PLT - PLATELET COUNT 27 10^3/uL (130-450)
[2017-08-21 05:54] LABS: ABNORMAL LYMPHS % (MANUAL) 0 %
[2017-08-21 06:00] LABS: BAND NEUTROPHILS % (MANUAL) 9 %; LYMPHOCYTES # (MANUAL) 0.5 10^3/uL (1.5-3.5); LYMPHOCYTES % (MANUAL) 6 %; MONOCYTES # (MANUAL) 0.4 10^3/uL (0.0-1.0); NEUTROPHILS # (MANUAL) 7.6 10^3/uL (1.5-6.6); NEUTROPHILS % (MANUAL) 80 %
[2017-08-21 06:01] LABS: DIFFERENTIAL COMMENT MANUAL DIFFERENTIAL; PLATELET ESTIMATE, MANUAL DECREASED (<130,000) (NORMAL)
[2017-08-21] MEDS: PANTOPRAZOLE 40 MG TABLET PO SCH (06:40)
[2017-08-21] MEDS: METHADONE 5 MG TABLET PO SCH ×3 (06:40→21:00)
[2017-08-21] MEDS: FUROSEMIDE 40 MG TABLET PO SCH (10:23)
[2017-08-21] MEDS: METOPROLOL TARTRATE 25 MG TABLET PO SCH (10:23)
[2017-08-21] MEDS: POLYETHYLENE GLYCOL 3350 17 GM PACKET PO SCH (10:23)
[2017-08-21] MEDS: SENNA 8.6 MG TABLET PO SCH (10:24)
[2017-08-21] MEDS: SPIRONOLACTONE 25 MG TABLET PO SCH (10:24)
[2017-08-21 11:27] LABS: VANCOMYCIN,TROUGH 10.3 ug/mL (5.0-15.0)
[2017-08-21] MEDS: VANCOMYCIN INJ 1 GM in SODIUM CHLORIDE 0.9% 250 ML IV SCH (11:46)
[2017-08-21] MEDS ORDERED: SODIUM CHLORIDE 0.9% 1,000 ML IV SCH (13:54)
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
[2017-08-21] MEDS: LORazepam 2 MG/ML VIAL IVP PRN ×3 (17:10→21:37)
--- NOTE | 2017-08-21 18:25 | CONSULTATION NOTE ---
Palliative Care Follow Up - Referral Referring Provider: Yara TREVINO/Austin TREVINO Time of Visit: [id number] Referral setting: Hospitalized patient Referral Reason: Goals of Care/SC/Failure to thrive - Information Sources Records reviewed: RN notes reviewed, Previous records reviewed History/Review of Systems obtained from: Family (daughter Jordana), Caregiver ( clinical staff/hospitalist) Exam limitations: Clinical condition (patient nonresponsive) - History of Present Illness Update Brief HPI Update: Please see consultation visit dated 08/20 for extensive HPI. Patient has continued to be nonresponsive, her labs this morning revealed a troponin 15.49, she remains tachycardic, as well as now displaying symptoms of respiratory distress and fluid overload. Her white count has decreased to 8.5, but her platelets now at 27,000, she does have an extensive bruising as a result. Her kidney function continues to worsen with a BUN of 55 creatinine 2.6 and her GFR 18. She does appear to be third spacing increased crackles, inspiratory and expiratory wheezes, and scattered rhonchi, and with increased respiratory effort. She does appear stressed. She also has some increased swelling in her upper extremities.Her daughter and her family were able to come up last night, she did stay until 3:00 in the morning. She is quite exhausted at this point. She has many questions regarding decisions surrounding the antibiotics, did redirect as patient is presenting with extensive SC, and multi-organ failure, and wants to include her brother Osman in the decision making. Social History - Living Situation Living arrangement: Other Living Situation: With family (has been living at daughter's home last two months) Medications/Allergies - Medications Active Medication List: Active Medications Hydromorphone HCl (Dilaudid Inj Syringe) 0.5 mg IVP Q4H PRN PRN Reason: PAIN Last Admin: 08/20/17 19:35 Dose: 0.5 mg Sodium Chloride (Normal Saline 0.9%) 1,000 mls @ 10 mls/hr IV .Q48H [facility] Last Admin: 08/21/17 14:18 Dose: 10 mls/hr Lorazepam (Ativan Inj (Vial)) 0.5 mg IVP Q2H PRN PRN Reason: Anxiety Last Admin: 08/21/17 17:10 Dose: 0.5 mg Methadone HCl () 5 mg PO TID [place] Last Admin: 08/21/17 13:14 Dose: Not Given Polyethylene Glycol (Miralax) 17 gm PO DAILY [facility] Last Admin: 08/21/17 10:23 Dose: Not Given Senna (Senokot) 8.6 mg PO DAILY [facility] Last Admin: 08/21/17 10:24 Dose: Not Given Sodium Chloride (Normal Saline Flush 0.9%) 10 ml IVP PRN PRN PRN Reason: NEEDED PER PROVIDER ORDERS Last Admin: 08/20/17 11:46 Dose: 10 ml Sodium Chloride (Normal Saline Flush 0.9%) 10 ml IVP Q8HR [facility] Last Admin: 08/21/17 13:15 Dose: Not Given Furosemide 40 mg PO BID 08/18/17 Methadone 5 mg PO Q12H 08/18/17 oxyCODONE [Roxicodone] 5 mg PO TID PRN 08/18/17 - Allergies Allergies/Adverse Reactions: Allergies Allergy/AdvReac Type Severity Reaction Status Date / Time No Known Drug Allergies Allergy Verified 08/18/17 10:29 Review of Systems - Respiratory Respiratory: reports: SOB at rest - Genitourinary Genitourinary: reports: Other (bruno catheter) - Neurological Neurological: reports: Other (patient nonresponsive other than when turned) - Hematologic/Lymphatic Hematologic/Lymphatic: reports: Bruising - Other Findings Other Findings: ROS limited Physical Exam - Vital Signs Vital Signs: Vital Signs x48h Temp Pulse Resp BP Pulse Ox 08/21/17 16:52 37.8 C H 120 H 24 147/66 H 97 - Physical Exam General Appearance: positive: Moderate distress (patient with respiratory effort ; squirming in bed non purposeful movement; cries out when moved/touched) Eyes Bilateral: positive: Other (eyes open; non focused) ENT: positive: Dry mucous membranes Neck: positive: No JVD, Trachea midline, Stiff neck Cardiovascular: positive: Irregular, Tachycardia, Systolic murmur Respiratory: positive: Wheezes, Rales Abdomen: positive: Soft Skin: positive: Pallor, Dryness, Bruising Extremities: positive: Pedal edema (mild pedal edema), Other (arms with swelling ; right hand taut) Neurologic/Psychiatric: positive: Other (nonresponsive; flutters eyes at times) Palliative Care - POLST Patient has POLST: Yes POLST Status: DNR Pain: Comment (patient unable to express pain at this time; has baseline back pain from compression fractures; uncomfortable with touch/movement) Performance Status: Patient bedbound presents as a PPS of 10% - Palliative Care Discussion: Extensive family conference first with Jordana the daughter, and then a joint phone call with her brother Osman and Jordana to discuss mother's continued physical deterioration. We did discuss in the context of her current condition , she does have an extensive SC, she is nonresponsive, her kidneys are shutting down, her platelets are low, and in the context of her antibiotics her white count has decreased but she is demonstrating overall multiorgan failure. She has not presented with any signs of improvement, but actually ongoing deterioration. Long discussion in weighing benefits and burdens regarding transition to comfort measures, fact that she is third spacing and fluids adding to her discomfort, the focus would be on comfort to relieve suffering, and the patient most likely to have continued imminent demise the goal would be to evaluate for other settings for transition to hospice. Daughter Jordana, does not feel that she would be able to emotionally manage this and is feeling somewhat overwhelmed, she is quite interested in [facility] as she has explored this option previously when patient was on hospice. [facility] has been a place she has been before, but does have outstanding bills there. Neither daughter or son have the resources financially to assist. This is a long and lengthy conversation, obviously emotionally fraught with much feeling in distress regarding the impending loss of their mother. Did come to agreement though focus should be on comfort, in the context of her expressed wishes previously, and to focus on relief of suffering. This was communicated to the hospitalist as far as transitioning focus of care. Results - Lab Results Lab results reviewed: Yes Fish Bones: 08/21/17 05:13 08/21/17 05:13 Lab and Imaging Results: Lab Results x24hrs 08/21/17 08/21/17 08/21/17 Range/Units 11:00 05:13 05:13 WBC (4.8-10.8) x10^3/uL RBC (4.20-5.40) 10^6/uL Hgb (12.0-16.0) g/dL Hct (37.0-47.0) % MCV (81.0-99.0) fL MCH (27.0-31.0) pg MCHC (32.0-36.0) g/dL RDW (12.0-15.0) % Plt Count (130-450) 10^3/uL MPV (7.9-10.8) fL Neut # Lymph # [place] # Eos # Baso # Absolute Nucleated RBC Total Counted Band Neuts % (Manual) (0 - 10) % Abnorm Lymph % (Manual) % Nucleated RBC % Neutrophils # (Manual) (1.5-6.6) 10^3/uL Lymphocytes # (Manual) (1.5-3.5) 10^3/uL Monocytes # (Manual) (0.0-1.0) 10^3/uL Eosinophils # (Manual) (0-0.7) 10^3/uL Basophils # (Manual) (0-0.1) 10^3/uL Differential Comment Platelet Estimate (NORMAL) RBC Morph Micro Appear (NORMAL) Sodium 147 H (135-145) mmol/L Potassium 4.1 (3.5-5.0) mmol/L Chloride 119 H (101-111) mmol/L Carbon Dioxide 19 L (21-32) mmol/L Anion Gap 9.0 (6-13) BUN 55 H (6-20) mg/dL Creatinine 2.6 H (0.4-1.0) mg/dL Estimated GFR (MDRD) 18 L (>89) Glucose 86 (70-100) mg/dL Calcium 7.5 L (8.5-10.3) mg/dL Total Bilirubin 2.7 H (0.2-1.0) mg/dL AST 146 H (10-42) IU/L ALT 33 (10-60) IU/L Alkaline Phosphatase 91 (42-121) IU/L Troponin I 15.49 H* (<0.49) ng/mL Total Protein 5.7 L (6.7-8.2) g/dL Albumin 1.2 L (3.2-5.5) g/dL Globulin 4.5 H (2.1-4.2) g/dL Albumin/Globulin Ratio 0.3 L (1.0-2.2) Last Dose Date 08/20/2017 Last Dose Time 1100 Vancomycin Trough 10.3 (5.0-15.0) ug/mL 08/21/17 Range/Units 05:13 WBC 8.5 (4.8-10.8) x10^3/uL RBC 3.35 L (4.20-5.40) 10^6/uL Hgb 10.4 L (12.0-16.0) g/dL Hct 31.4 L (37.0-47.0) % MCV 93.8 (81.0-99.0) fL MCH 31.0 (27.0-31.0) pg MCHC 33.1 (32.0-36.0) g/dL RDW 25.8 H (12.0-15.0) % Plt Count 27 L* (130-450) 10^3/uL MPV 8.0 (7.9-10.8) fL Neut # Not Reportable Lymph # Not Reportable [place] # Not Reportable Eos # Not Reportable Baso # Not Reportable Absolute Nucleated RBC Not Reportable Total Counted 100 Band Neuts % (Manual) 9 (0 - 10) % Abnorm Lymph % (Manual) 0 % Nucleated RBC % Not Reportable Neutrophils # (Manual) 7.6 H (1.5-6.6) 10^3/uL Lymphocytes # (Manual) 0.5 L (1.5-3.5) 10^3/uL Monocytes # (Manual) 0.4 (0.0-1.0) 10^3/uL Eosinophils # (Manual) 0.0 (0-0.7) 10^3/uL Basophils # (Manual) 0.0 (0-0.1) 10^3/uL Differential Comment MANUAL DIFFERENTIAL Platelet Estimate DECREASED (<130,000) (NORMAL) RBC Morph Micro Appear 1+ POLYCHROMASIA (NORMAL) Sodium (135-145) mmol/L Potassium (3.5-5.0) mmol/L Chloride (101-111) mmol/L Carbon Dioxide (21-32) mmol/L Anion Gap (6-13) BUN (6-20) mg/dL Creatinine (0.4-1.0) mg/dL Estimated GFR (MDRD) (>89) Glucose (70-100) mg/dL Calcium (8.5-10.3) mg/dL Total Bilirubin (0.2-1.0) mg/dL AST (10-42) IU/L ALT (10-60) IU/L Alkaline Phosphatase (42-121) IU/L Troponin I (<0.49) ng/mL Total Protein (6.7-8.2) g/dL Albumin (3.2-5.5) g/dL Globulin (2.1-4.2) g/dL Albumin/Globulin Ratio (1.0-2.2) Last Dose Date Last Dose Time Vancomycin Trough (5.0-15.0) ug/mL Impression and Recommendations - Palliative Care Impression: This is an 82-year-old woman who unfortunately has continued to decline, she has multiple comorbidities, worsening organ failure, is nonresponsive, and appears to be actively transitioning. Family meeting with daughter and son to determine goals of care and transition to comfort measures. Recommendations/Counseling Done: 1. Multiorgan failure. Patient has not showed any improvement in the last 24 hours, in fact is continued to decline. She remains nonresponsive, her labs are worsening, and she is appearing in more distress. Patient does appear to be actively transitioning, family meeting with daughter Jordana and son Osman to establish goals of care and transition to comfort measures. Counseling done regarding anticipatory guidance and education regarding signs and symptoms of end-of-life. 2. Respiratory distress. Follow-up with hospitalist regarding decreasing fluids down to 10 mils an hour to allow access for IV medications only. Patient does have access to comfort medications hydromorphone as well as Lorazepam, will defer to the nurses for active symptom management. Goals the family are to minimize suffering, and address any symptoms or signs of distress or pain. 3. Advanced care planning. Family conference as noted above, transition to comfort care. I discussed possible transition plan to hospice if patient lingers on, introduced SONNY corbin, left a message as far as follow up on availability. Daughter at this point in time does not feel they can take her home, as well as do not have the finances to support another setting. Patient does appear quite fragile, most likely hours to days for prognosis. Time Spent: 75 minutes with greater than 50% of this done in counseling, family conference regarding goals of care and transition to comfort measures, communication with clinical team and anticipatory guidance
[2017-08-21] MEDS: HYDROmorphone 1 MG/ML SYRINGE IVP PRN ×2 (19:54→21:38)
[2017-08-22] MEDS: HYDROmorphone 1 MG/ML SYRINGE IVP PRN ×6 (06:00→17:56)
[2017-08-22] MEDS: SENNA 8.6 MG TABLET PO SCH (07:17)
[2017-08-22] MEDS: POLYETHYLENE GLYCOL 3350 17 GM PACKET PO SCH (07:17)
[2017-08-22] MEDS: METHADONE 5 MG TABLET PO SCH ×2 (07:23→13:50)
[2017-08-22] MEDS: SODIUM CHLORIDE FLUSH 0.9% 10 ML SYRINGE IVP SCH (07:23)
[2017-08-22] MEDS: LORazepam 2 MG/ML VIAL IVP PRN ×3 (08:02→17:56)
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
[2017-08-22 16:02] VITALS: BP 90/63
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
--- NOTE | 2017-08-22 19:09 | PROVIDER PROGRESS NOTE ---
Hospitalist Cross-cover Note - Cross-Cover Note Cross-Cover Note: Pt's code status: DNR, comfortable care. nurse report me pt is . I go with nurse to see pt. Pt is pallor, no breathing sign. I assess pt. Pt is no pulse, no blood pressure, no heart sounds auscultation, no respiratory sounds on auscultation, no response to deep painful stimulus, absent pupillary light reflex, absent corneal reflex. The time of pt's is 182 on 08/22/17.
--- NOTE | 2017-08-23 09:23 | DISCHARGE SUMMARY ---
Discharge Summary Discharge Date: 08/22/17 Discharging Provider: KEN Condition at Discharge: Poor Discharge Disposition: 20 - ALLERGIES Allergies/Adverse Reactions: Allergies Allergy/AdvReac Type Severity Reaction Status Date / Time No Known Drug Allergies Allergy Verified 08/18/17 10:29 - MEDICATIONS Home Medications: Ambulatory Orders Medication Instructions Recorded Confirmed Furosemide 40 mg PO BID 08/18/17 08/18/17 Methadone 5 mg PO Q12H 08/18/17 08/18/17 oxyCODONE [Roxicodone] 5 mg PO TID PRN 08/18/17 08/18/17 - LABS Result Diagrams: 08/21/17 05:13 08/21/17 05:13
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
== END 2017-08-22 18:25 | disposition expired | DRG 280 ==
LOC: EDUNIT# → ED 10:20 → MS2 17:00
PROVIDERS: ADMIT Nurse Practitioner; ATTEND Nurse Practitioner Gerontology
DX: N28.9 Disorder of kidney and ureter, unspecified (principal); E87.6 Hypokalemia; E86.0 Dehydration; I21.4 Non-ST elevation (NSTEMI) myocardial infarction; A41.02 Sepsis due to Methicillin resistant Staphylococcus aureus; R65.20 Severe sepsis without septic shock; J18.9 Pneumonia, unspecified organism; K72.01 Acute and subacute hepatic failure with coma; N17.9 Acute kidney failure, unspecified; T74.01XA Adult neglect or abandonment, confirmed, initial encounter; G89.29 Other chronic pain; M80.88XS Other osteoporosis with current pathological fracture, vertebra(e), sequela; I12.9 Hypertensive chronic kidney disease with stage 1 through stage 4 chronic kidney disease, or unspecified chronic kidney disease; N18.3 Chronic kidney disease, stage 3 (moderate); E11.22 Type 2 diabetes mellitus with diabetic chronic kidney disease; F03.90 Unspecified dementia, unspecified severity, without behavioral disturbance, psychotic disturbance, mood disturbance, and anxiety; D69.6 Thrombocytopenia, unspecified; K74.60 Unspecified cirrhosis of liver; R60.1 Generalized edema; R06.03 Acute respiratory distress; B95.62 Methicillin resistant Staphylococcus aureus infection as the cause of diseases classified elsewhere; F10.10 Alcohol abuse, uncomplicated; F32.9 Major depressive disorder, single episode, unspecified; R32 Unspecified urinary incontinence; I25.10 Atherosclerotic heart disease of native coronary artery without angina pectoris; M19.90 Unspecified osteoarthritis, unspecified site; M10.9 Gout, unspecified; Z66 Do not resuscitate; Z79.891 Long term (current) use of opiate analgesic; Z79.899 Other long term (current) drug therapy; Z74.01 Bed confinement status; Z86.718 Personal history of other venous thrombosis and embolism; Z91.5 Personal history of self-harm
CPT/HCPCS: 36415; 51701; 71045; 71046; 72100; 80048; 80053; 81001; 81003; 82803; 83036; 83605; 83690; 84443; 84484; 85025; 87040; 87086; 87275; 87276; 87640; 93005; 93306; 96361; 96374; 96375; 99223; 99233; 99284; 99285